=== PATIENT | female | born 1935 | race Caucasian/White ===

== ENCOUNTER 2017-01-03 12:20 | Inpatient (IN) ==
[2017-01-03] MEDS ORDERED: NS 1,000 ML IV ONE (13:07)
[2017-01-03] MEDS ORDERED: ZYVOX 600 MG/D5W 600 MG/300 ML IVPB IV ONE (13:09)
[2017-01-03 13:56] LABS: BASO% 0.5 % (0.0-0.8); EOS# 0.21 X1000 (0.0-0.7); EOS% 4.8 % (0.0-10.0); HEMOGLOBIN 8.6 g/dL (12.0-16.0); IMM GRAN# 0.02 X1000 (0.0-0.04); IMM GRAN% 0.5 % (0.0-0.5); LYMPH# 0.61 X1000 (1.2-3.4); LYMPH% 13.8 % (20.5-51.1); MANUAL DIFF NEEDED? NO; MCH 21.7 PG (27-31); MCHC 28.7 g/dL (33-37); MCV 75.8 FL (81-99); MONO# 0.35 X1000 (0.11-0.59); MONO% 7.9 % (1.7-9.3); MPV 10.8 FL (7.4-10.4); NEUT% 72.5 % (42.2-75.2); PLT 195 X1000 (130-400); RBC 3.96 XMIL (4.2-5.4)
[2017-01-03 14:04] LABS: ALBUMIN 3.8 g/dL (3.5-5.0); CALCIUM 8.6 mg/dL (8.8-10.2); POTASSIUM 4.4 mmol/L (3.5-5.1); TOTAL BILIRUBIN 0.2 mg/dL (0.20-1.00); TOTAL PROTEIN 6.7 g/dL (6.3-8.3)
--- NOTE | 2017-01-03 14:31 | Diag Imaging Result Doc PS360 ---
EXAM: CHEST-PORTABLE HISTORY: Cough TECHNIQUE: Single view of the chest was performed portably. COMPARISON: 04/03/2016 FINDINGS: Stable elevation left hemidiaphragm. There is cardiomegaly. There is stable parenchymal fibrosis. There is stable deformity of the right shoulder following removal of the total shoulder arthroplasty. No acute abnormalities are demonstrated. IMPRESSION: Stable cardiomegaly and parenchymal fibrosis. Electronically signed by Angelina Fan 01/03/2017 2:29 PM
[2017-01-03] MEDS ORDERED: CLINDAMYCIN 900 MG/NS 900 MG/50 ML IVPB IV SCH (15:00)
--- NOTE | 2017-01-03 15:01 | ED EKG INTERP ---
EKG Interpretation - EKG Time of EKG reading by physician:: 14:38 EKG Read and Signed by:: Pietro Lu EKG Interpretation (*Must complete 3 of following elements*): Normal Rate: 69 Rhythm: NSR [place]: normal QRS: normal IN Interval: normal ST Wave: normal Attestation - Physician/ AIME Attestation The physician spent face to face time with patient:: No Advanced Practice Provider documentation review:: Supervising physician onsite and consulted in the evaluation and care of this patient. The physician did not have a face to face encounter with the patient.
--- NOTE | 2017-01-03 15:02 | PROVIDER DOCUMENTATION ---
This chart was entered by Joe Nguyen Scribe, acting as scribe for Amrit Jones CRNP. HPI-Musculoskeletal Pain/Inj - GENERAL Chief Complaint: Extremity Pain Stated Complaint: ABNORMAL LABS Time Seen by Provider: 01/03/17 12:40 - HX OF PRESENT ILLNESS-MUSKULOSKELTAL Nature of Presenting Problem: patient is a 81 y/o F that presents to the ER with left leg redness and cellulitis. patient has been treated outpatient silva by ( PCP) with keflex and bactrim. no fever/chills, no injury. Quality of Pain: reports: none Severity in ED: moderate Onset/Duration: unsure Timing: still present, getting worse Modifying Factors: improves with: nothing Any recent injury?: No Locality of Occurance: Home Similar Symptoms Previously?: Yes Recently seen or treated by another doctor?: Yes - LOWER EXTREMITY PAIN/INJURY Lower Extremities Pain: leg: left Context / Method of Injury: reports: unknown Associated Symptoms: reports: denies symptoms Review of Systems - Adult - REVIEW OF SYSTEMS - ADULT Constitutional: denies: chills, fever Eyes: reports: no symptoms reported Ears, Nose, Mouth & Throat: reports: no symptoms reported Cardiovascular: denies: see HPI, orthopnea, palpitations Respiratory: denies: cough, shortness of breath, wheezing Gastrointestinal: denies: abdominal pain, nausea, vomiting Genitourinary: denies: dysuria, discharge, hesitency Musculoskeletal: denies: back pain, muscle aches, neck pain Integumentary: reports: see HPI Neurological: reports: no symptoms reported Psychiatric: reports: no symptoms reported Endocrine: reports: no symptoms reported Hematologic/Lymphatic: reports: no symptoms reported Allergic/Immunologic: reports: no symptoms reported All Other Systems: Reviewed and Negative Past History - Adult - PAST MEDICAL HISTORY-ADULT Review of Records: reports: Old Records Reviewed, Nursing Assessment Review, Medications Reviewed Cardiovascular: reports: CHF Respiratory: reports: pneumonia Gastrointestinal: reports: GERD Obstetrical/Gynecological: reports: other (breast cancer) Genitourinary: reports: other (hematuria) Musculoskeletal: reports: chronic pain Psychiatric: reports: anxiety Endocrine/Immune: reports: thyroid disorder Other Conditions: reports: MRSA - PRIOR SURGERIES/PROCEDURES Surgical/Procedure History: reports: cholecystectomy, hysterectomy, 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), other (Pedro's, mastectomy) - IMMUNIZATION STATUS Childhood Immunizations: See Nurse Assessment Flu Vaccine: See Nurse Assessment - FAMILY HISTORY Family History: reviewed, not pertinent - SOCIAL HISTORY Smoking: non-smoker Living Situation: family Physical Exam-Injury Related - Physical Exam-Injury Related Initial Vital Signs Reviewed: Yes General Appearance: alert, no apparent distress Eyes: PERRL/EOMI, pink conjunctivae Head, Ears, Nose, Mouth & Throat: normocephalic/atraumatic, moist mucous membranes, normal ENT inspection Neck: non-tender, full range of motion, normal inspection Respiratory: lungs clear, normal breath sounds, no respiratory distress, no accessory muscle use Cardiovascular: regular rate, rhythm, no edema, no murmur Abdominal Exam: normal bowel sounds, non tender, soft Back Exam: no CVA tenderness, no vertebral tenderness Extremity: pelvis stable, erythema (left leg complete), other (RIGHT BKA) Integumentary: warm/dry, erythema (left leg) Neurologic: grossly normal, no motor/sensory deficits Psych/Mental Status: normal mood/affect, normal thought content, normal thought process, oriented x 3 Progress - PLAN OF CARE/RESULTS Progress/Plan/Lab Results: Vital Signs - 8 hr 01/03/17 12:34 Temperature 98 F Pulse Rate 73 Respiratory Rate 18 Blood Pressure 153/70 O2 Sat by Pulse Oximetry 91 L Laboratory Results - last 24 hr 01/03/17 01/03/17 01/03/17 13:26 13:26 13:26 WBC 4.42 L RBC 3.96 L Hgb 8.6 L Hct 30.0 L MCV 75.8 L MCH 21.7 L MCHC 28.7 L RDW Std Deviation 16.3 H Plt Count 195 MPV 10.8 H Immature Gran % (Auto) 0.5 Neut % (Auto) 72.5 Lymph % (Auto) 13.8 L [place] % (Auto) 7.9 Eos % (Auto) 4.8 Baso % (Auto) 0.5 Immature Gran # (Auto) 0.02 Neut # (Auto) 3.21 Lymph # (Auto) 0.61 L [place] # (Auto) 0.35 Eos # (Auto) 0.21 Baso # (Auto) 0.02 Sodium 138 Potassium 4.4 Chloride 100 Carbon Dioxide 25 Anion Gap 12 BUN 14 Creatinine 0.9 Estimated GFR/1.73 m2 60 BUN/Creatinine Ratio 16 Glucose 84 Calculated Osmolality 275 Calcium 8.6 L Total Bilirubin 0.20 AST 22 ALT 18 Alkaline Phosphatase 113 H Total Protein 6.7 Albumin 3.8 Globulin 3.0 Albumin/Globulin Ratio 1.0 Plasma Lactate TSH 0.84 01/03/17 13:31 WBC RBC Hgb Hct MCV MCH MCHC RDW Std Deviation Plt Count MPV Immature Gran % (Auto) Neut % (Auto) Lymph % (Auto) [place] % (Auto) Eos % (Auto) Baso % (Auto) Immature Gran # (Auto) Neut # (Auto) Lymph # (Auto) [place] # (Auto) Eos # (Auto) Baso # (Auto) Sodium Potassium Chloride Carbon Dioxide Anion Gap BUN Creatinine Estimated GFR/1.73 m2 BUN/Creatinine Ratio Glucose Calculated Osmolality Calcium Total Bilirubin AST ALT Alkaline Phosphatase Total Protein Albumin Globulin Albumin/Globulin Ratio Plasma Lactate 0.9 TSH Orders Category Date Time Status Saline Loc NOW Care 01/03/17 13:05 Active CHEST-PORTABLE [RAD] Stat Exams 01/03/17 13:06 Completed BLOOD CULTURE [BLDCUL] Stat Lab 01/03/17 13:06 Ordered CBC WITH ELECTRONIC DIFF [HEME] Stat Lab 01/03/17 13:26 Completed COMPREHENSIVE METABOLIC PANEL [CHEM] Stat Lab 01/03/17 13:26 Completed LACTATE, PLASMA [CHEM] Stat Lab 01/03/17 13:31 Completed TSH Stat Lab 01/03/17 13:26 Completed URINALYSIS W/POSS RFLX CULT-1 [URINALYSIS] Stat Lab 01/03/17 13:05 Uncollected 0.9% Sodium Chloride Inj [Ns] 1,000 ml Med 01/03/17 13:07 Active IV 125 mls/hr Clindamycin 900 mg/Ns Med 01/03/17 15:00 Discontinued 900 mg in 50 ml IV Q8H Linezolid 600 mg/D5w [Zyvox 600 mg/D5w] Med 01/03/17 13:09 Active 600 mg in 300 ml IV NOW EKG [EKG] Stat Ther 01/03/17 13:05 Ordered Transfer/Admit Order [TRANSFER] Routine Transfer 01/03/17 14:56 Ordered Discussed results and plan of care with patient. Patient agrees with plan and verbalizes understanding. Result Diagrams: 01/03/17 13:26 01/03/17 13:26 - XRAY 1 XRAY Study: Chest XRAY Interpretation: Stable cardiomegally and parynchemal fibrosis per radiology - CONSULTS/PCP/HOSPITALIST Notification #1 *Consult/PCP/Hospitalist*: Dr. Lopez Time Discussed: 15:01 Reason/Comments: Admission Consult Disposition: Admit Departure - Departure Date of Disposition Decision: 01/03/17 Time of Disposition Decision: 13:10 DIAGNOSIS: Cellulitis Qualifiers: Site of cellulitis: extremity Site of cellulitis of extremity: lower extremity Laterality: left Qualified Code(s): L03.116 - Cellulitis of left lower limb Disposition: ADMITTED INPATIENT 09 Certified Medical Emergency: Emergent Condition: Stable Referrals and Follow-Ups: Kayode Go [Primary Care Provider] - - Critical Care Note This patient required my direct & personal management of CC.: No Attestation - Physician/ AIME Attestation Patient care was provided by Advanced Practice Provider:: Yes Advanced Practice Provider:: Amrit Jones (The physician is on site and did have face to face contact with the patient.) Advanced Practice Provider documentation review:: The Mid-level provider documentation, treatment plan and medical decision making was reviewed by the physician who agrees with all treatment and medical decision making by the P. The physician spent face to face time with patient:: Yes Advanced Practice Provider documentation review:: Supervising physician onsite and consulted in the evaluation and care of this patient. The physician did have a face to face encounter with the patient. This chart was documented by the indicated scribe, (Joe Nguyen, Scribe) and accurately reflects the services I performed and decisions made by me, Amrit Jones CRNP, as attested by the provider's signature.
[2017-01-03] MEDS ORDERED: TORADOL IM ONE (15:52)
[2017-01-03] MEDS ORDERED: TORADOL ONE (15:52)
[2017-01-03] MEDS ORDERED: PERCOCET-5 PO ONE (15:56)
[2017-01-03] MEDS ORDERED: PERCOCET-5 ONE (15:57)
[2017-01-03] MEDS ORDERED: TYLENOL PO PRN (16:10)
[2017-01-03] MEDS ORDERED: DEMEROL IV PRN (16:10)
[2017-01-03] MEDS ORDERED: ZOFRAN IV PRN (16:10)
--- NOTE | 2017-01-03 16:21 | HISTORY AND PHYSICAL ---
PRIMARY CARE PHYSICIAN: Dr. Kayode Go. CHIEF COMPLAINT: Left leg cellulitis that has failed outpatient treatment, stating that she was on clindamycin approximately a month ago and then approximately 2 weeks ago was placed on Keflex and Bactrim, all of which resulted in no improvement. HISTORY OF PRESENTING ILLNESS: This is a 81-year-old female who presents to [facility] ER with complaints of left leg cellulitis. She is noted to have erythema, edema, warmth to touch from her left knee, extending all the way down into her left foot. The patient states that approximately 1 month ago she was placed on clindamycin, had no improvement in her symptoms so she saw her primary care physician approximately 2 weeks ago and was placed on Keflex and Bactrim, with taking all of her antibiotics and still has no improvement. She states there is pain with any movement to her left leg. So she is being admitted for further evaluation and treatment. 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 PAST SURGICAL HISTORY: Adenoidectomy, left ankle repair, appendectomy, low back surgery, hysterectomy, right AKA, bilateral mastectomy, right shoulder and a hemorrhoidectomy. FAMILY HISTORY: Diabetes and heart disease. SOCIAL HISTORY: She currently lives with . Denies any tobacco, alcohol, or illicit drug use. ALLERGIES: Buprenex, Stadol, Nubain, Dilaudid, Cipro, morphine, vancomycin and Toradol. HOME MEDICATIONS: I will obtain a current list and restart those as appropriate. DIAGNOSTIC DATA: Showed a white blood cell count of 4.42, hemoglobin 8.6, hematocrit 30, platelets 195,000. Sodium 138, potassium 4.4, chloride 100, CO2 25, BUN of 14, creatinine 0.9, glucose of 84. TSH of 0.84. Chest x-ray showed stable cardiomegaly and parenchymal fibrosis. EKG with normal sinus rhythm at 69. REVIEW OF SYSTEMS: She denied any fever, chills, blurred vision, dizziness, chest pain, coughing, shortness of breath, abdominal pain, constipation, diarrhea, burning or hurting with urination. She is positive for pain, swelling, redness and warmth to her left lower extremity from her knee down to her left foot. PHYSICAL EXAMINATION: VITAL SIGNS: On arrival she had a temperature of 98 degrees, pulse 73, respirations 18, blood pressure 153/70, saturating 91% on room air. GENERAL: This is a 81-year-old morbidly obese, female who is sitting in her motorized wheelchair. Answers questions appropriately. HEENT: Normocephalic and atraumatic. Pupils are equal, round, reactive to light. Extraocular movements are intact. Oropharynx and nares are clear. NECK: Supple. LUNGS: Clear to auscultation bilaterally with equal lung expansion and chest wall movement. HEART: With regular rate and rhythm. No murmurs, rubs, or gallops. ABDOMEN: Soft, nontender, nondistended. Bowel sounds are present x4 quadrants. EXTREMITIES: Patient is noted to have a right AKA to her left leg from her knee down to her foot. There is erythema, edema, warmth to touch. Pain with movement. NEUROLOGICAL: The cranial nerves 2-12 appear grossly intact. ASSESSMENT: 1. Left lower extremity cellulitis with failed outpatient treatment. 2. Hypertension. 3. Hypothyroidism. 4. Anxiety. PLAN: She is being admitted to the Medical Unit at [facility], placed on telemetry, O2 per protocol. Healthy heart diet. We will place her on Zyvox 600 mg IV q.12 hours. We will check a left lower extremity venous ultrasound. Place on Demerol 25 IV q.4 hours p.r.n., Zofran 4 mg IV q.4 hours p.r.n. Recheck a CBC and a BMP in the a.m. and we will verify her home medications and restart those as appropriate. Dictated by SARAH Salmeron for Otoniel Lopez MD cc: SARAH Salmeron MD Alan Walker, MD
[2017-01-03 20:04] LABS: URINE CULTURE PL NEEDED? NO
[2017-01-03 20:18] LABS: BILIRUBIN URINE NEGATIVE (NEGATIVE); BLOOD URINE 3+ (NEGATIVE); CLARITY CLEAR (CLEAR); COLOR YELLOW; GLUCOSE URINE NEGATIVE (NEGATIVE); LEUKOCYTES URINE NEGATIVE (NEGATIVE); NITRITE URINE NEGATIVE (NEGATIVE); PROTEIN URINE NEGATIVE (NEGATIVE); SP GRAVITY URINE 1.005; UROBILINOGEN URINE NORMAL
[2017-01-03 20:19] LABS: URINE EPITHELIAL CELLS <10 /HPF (<10); URINE RBC TNTC /HPF (<10); URINE SOURCE CATH; URINE WBC <10 /HPF (<10)
[2017-01-03] MEDS ORDERED: [UNRECOGNIZED DRUG - OTHER] PO SCH (21:00)
[2017-01-03] MEDS ORDERED: DICLOFENAC SODIUM PO SCH (21:00)
[2017-01-03] MEDS ORDERED: MISOPROSTOL PO SCH (21:00)
[2017-01-03] MEDS: OXY IR PO SCH (21:10)
[2017-01-03] MEDS: ZANAFLEX PO SCH (21:10)
[2017-01-03] MEDS: MIRAPEX PO SCH (21:10)
[2017-01-03] MEDS: DEMEROL IV PRN (22:03)
--- NOTE | 2017-01-03 22:42 | HISTORY AND PHYSICAL ---
This is a 81-year-old female I am seeing in addition to the nurse practitioner [id number] encounter with diabetes, hypertension, PVD and she has a significant cellulitis of her left lower extremity including erythema, warmth to the touch. She was felt to clinically have cellulitis. She had recently been on Keflex and Bactrim but had failed therapy so she was evaluated and placed on linezolid. She has also been on clindamycin but I think that was in August and was a fairly low dose so I am not sure if that may not be another option but we will follow clinically, also rule out DVT. cc: Otoniel Lopez MD
[2017-01-04] MEDS: ZYVOX 600 MG/D5W 600 MG/300 ML IVPB IV SCH ×2 (01:01→13:08)
[2017-01-04] MEDS: DEMEROL IV PRN ×5 (02:00→20:35)
[2017-01-04 06:06] LABS: BASO% 0.8 % (0.0-0.8); EOS# 0.03 X1000 (0.0-0.7); EOS% 1.2 % (0.0-10.0); HEMATOCRIT 28.1 % (37.0-47.0); HEMOGLOBIN 7.9 g/dL (12.0-16.0); LYMPH# 0.74 X1000 (1.2-3.4); LYMPH% 29.2 % (20.5-51.1); MANUAL DIFF NEEDED? YES; MCH 21.4 PG (27-31); MCHC 28.1 g/dL (33-37); MCV 75.9 FL (81-99); MONO# 0.24 X1000 (0.11-0.59); MONO% 9.5 % (1.7-9.3); MPV 10.3 FL (7.4-10.4); NEUT% 59.3 % (42.2-75.2); PLT 185 X1000 (130-400)
[2017-01-04 06:38] LABS: AGAP 8; BUN 11 mg/dL (8-22); CALCIUM 8.6 mg/dL (8.8-10.2); CHLORIDE 101 mmol/L (98-107); COSMO 272; SODIUM 136 mmol/L (136-145); TCO2 26 mmol/L (25-35)
[2017-01-04 06:45] LABS: EOS 2 % (1-10); LYMPHS 24 % (21-51)
[2017-01-04 06:46] LABS: HYPOCHROM 1+
[2017-01-04] MEDS ORDERED: SYNTHROID PO SCH (07:00)
[2017-01-04] MEDS: SYNTHROID PO SCH ×2 (07:48)
[2017-01-04] MEDS: HEMOCYTE PLUS CAPSULE PO SCH (09:05)
[2017-01-04] MEDS: ZANAFLEX PO SCH ×2 (09:05→20:18)
[2017-01-04] MEDS: OXY IR PO SCH ×4 (09:05→20:17)
[2017-01-04] MEDS: PAXIL PO SCH (09:05)
[2017-01-04] MEDS: MIRAPEX PO SCH ×2 (09:05→20:18)
[2017-01-04] MEDS: LOVENOX SUBQ SCH (13:07)
--- NOTE | 2017-01-04 13:28 | PROGRESS NOTE ---
DATE: 01/04/2017 SUBJECTIVE: Patient sitting up in bed. States she did not sleep any last night, but other than that has no complaints. States her leg is feeling better today. OBJECTIVE: Vital signs: Temp 98.2 degrees, pulse 72, respirations 20, blood pressure 160/73, satting 98% on room air. General: This is a 81-year-old female lying in the bed, answers questions appropriately. HEENT: Normocephalic and atraumatic. Pupils are equal, round, reactive to light. Extraocular movements are intact. Oropharynx and nares are clear. Neck: Supple. Lungs: Clear to auscultation bilaterally with equal lung expansion and chest wall movement. Heart: With regular rate and rhythm. No murmurs, rubs, or gallops. Abdomen: Soft, nontender, nondistended. Bowel sounds are present x4 quadrants. Extremities: No clubbing, cyanosis. Patient is noted to have less erythema to her left lower extremity today. Her markings of where the erythema was yesterday have gone down significantly and are now down to her left calf versus up to her left knee yesterday. Her left foot is less erythematous, but the left calf continues to be erythematous, edematous, tender to touch, warm to touch. Neurological: The cranial nerves 2-12 appear grossly intact. LABORATORY DATA: Showed a white blood cell count of 2.53, hemoglobin 7.9, hematocrit 28.1, platelets 185. Sodium 136, potassium 4.0, chloride 101, CO2 26, BUN of 11, with a creatinine of 0.8, glucose 106. ASSESSMENT: 1. Left lower extremity cellulitis with failed outpatient treatment. We will continue her intravenous antibiotics as there has been improvement in her cellulitis on current intravenous treatment. We will recheck a complete blood count and basic metabolic panel in the morning. We are awaiting the results of venous Doppler of her left leg; it is still pending, and we will evaluate that once it has resulted. 2. Hypertension. Stable on current medication regimen. 3. Hypothyroidism. Stable. 4. Anxiety. Stable. PLAN: We will add Restoril 15 mg p.o. at bedtime p.r.n. to aid with sleeping tonight and evaluate the effectiveness in the morning. Dictated by SARAH Salmeron for Otoniel Lopez MD cc: SARAH Salmeron MD
--- NOTE | 2017-01-04 15:06 | PROGRESS NOTE ---
DATE: 01/04/2017 SUBJECTIVE: Patient admitted for cellulitis. OBJECTIVE: No fever. She had redness and erythema over her left lower extremity. I do not feel it is much improved from yesterday, about the same. PLAN: I am going to add clindamycin and we will follow clinically. I think we have ruled out deep venous thrombosis. She also has anemia, so we will continue to monitor her hemoglobin and hematocrit and evaluate iron studies. cc: Otoniel Lopez MD
[2017-01-04] MEDS: CLINDAMYCIN 900 MG/NS 900 MG/50 ML IVPB IV SCH (15:08)
[2017-01-04] MEDS: RESTORIL PO PRN (20:20)
[2017-01-05] MEDS: CLINDAMYCIN 900 MG/NS 900 MG/50 ML IVPB IV SCH ×3 (00:50→18:32)
[2017-01-05] MEDS: DEMEROL IV PRN ×5 (02:47→23:54)
[2017-01-05] MEDS: ZYVOX 600 MG/D5W 600 MG/300 ML IVPB IV SCH ×2 (02:47→12:47)
[2017-01-05 06:17] LABS: BASO% 0.9 % (0.0-0.8); EOS# 0.05 X1000 (0.0-0.7); EOS% 1.5 % (0.0-10.0); HEMATOCRIT 29.3 % (37.0-47.0); IMM GRAN# 0.01 X1000 (0.0-0.04); IMM GRAN% 0.3 % (0.0-0.5); LYMPH# 0.69 X1000 (1.2-3.4); LYMPH% 20.7 % (20.5-51.1); MANUAL DIFF NEEDED? NO; MCH 20.9 PG (27-31); MCHC 27.3 g/dL (33-37); MCV 76.7 FL (81-99); MONO# 0.33 X1000 (0.11-0.59); MONO% 9.9 % (1.7-9.3); MPV 9.9 FL (7.4-10.4); NEUT% 66.7 % (42.2-75.2); PLT 183 X1000 (130-400); RBC 3.82 XMIL (4.2-5.4); RETIC% 1.06 % (0.8-2.1); RETIC-HE 20.8 PG (28.2-36.6)
[2017-01-05] MEDS: SYNTHROID PO SCH ×2 (06:34)
[2017-01-05 06:35] LABS: AGAP 9; BUN 10 mg/dL (8-22); CALCIUM 9.2 mg/dL (8.8-10.2); CHLORIDE 101 mmol/L (98-107); COSMO 271; IRON SATURATION 9 %; POTASSIUM 4.1 mmol/L (3.5-5.1); SODIUM 136 mmol/L (136-145); TCO2 26 mmol/L (25-35); TIBC 367 ug/dL; TOTAL IRON 34 ug/dL (49-151); UNBOUND IRON 333 ug/dL (112-346)
--- NOTE | 2017-01-05 09:19 | PROGRESS NOTE ---
DATE: 01/05/2017 SUBJECTIVE: Patient sitting up in bed eating breakfast. Complains of pain to her left leg that is mildly relieved with her Demerol but does not want to change her pain regimen at this time. States she slept better last night after receiving p.r.n. Restoril. Otherwise, no complaints. OBJECTIVE: Vital Signs: Temperature 97.6 degrees, pulse 61, respirations 18, blood pressure 140/66, saturating 98% on room air. General: This is a 81-year-old, female who is lying in the bed and answers questions appropriately. HEENT: Normocephalic and atraumatic. Pupils are equal, round, and reactive to light. The extraocular movements are intact. The oropharynx and nares are clear. Neck: Supple. Lungs: Were clear to auscultation bilaterally with equal lung expansion and chest wall movement. Heart: With regular rate and rhythm. No murmurs, rubs, or gallops. Abdomen: Soft, nontender, nondistended. Bowel sounds are present x4 quadrants. Extremities: No clubbing or cyanosis. Patient is noted to still have erythema, edema, and warmth to touch to her left lower extremity but it still continues to improve. The redness continues to lessen each day. Neurological: The cranial nerves 2-12 are grossly intact. Laboratory Data: Showed a white blood cell count of 3.33, hemoglobin of 8, with a hematocrit of 29.3, platelets 183,000. Sodium of 136, potassium 4.1, chloride 101, CO2 26, BUN of 10, creatinine 0.7, glucose 105. We are still pending the results of her left lower extremity venous Doppler. ASSESSMENT: 1. Left lower extremity cellulitis with failed outpatient treatment. We continued her intravenous antibiotics. She continues to have improvement in her cellulitis. We will recheck labs in the morning. 2. Hypertension, stable on current medication regimen. 3. Hypothyroidism, stable. 4. Anxiety, stable. 5. Insomnia. Continue the Restoril 15 mg by mouth at bedtime as needed. The patient states that this was effective in aiding in her sleep last night. Dictated by SARAH Salmeron for Otoniel Lopez MD cc: SARAH Salmeron MD pt examined, seen face to face, pt has cellulitis but erythema, swelling has decreased, will continue zyvox and clindamycin at discharge possinly 1-2 days MTDD
[2017-01-05] MEDS: ZANAFLEX PO SCH ×3 (09:26→21:53)
[2017-01-05] MEDS: PAXIL PO SCH (09:26)
[2017-01-05] MEDS: OXY IR PO SCH ×2 (09:26→12:47)
[2017-01-05] MEDS: MIRAPEX PO SCH ×3 (09:27→21:53)
[2017-01-05] MEDS: HEMOCYTE PLUS CAPSULE PO SCH (09:43)
[2017-01-05] MEDS ORDERED: NS 250 ML ONE (09:52)
[2017-01-05 10:07] LABS: INR 0.9 (0.86-1.15); PROTIME 12.9 Seconds (12.1-15.5)
[2017-01-05] MEDS: LOVENOX SUBQ SCH ×2 (11:28→11:46)
--- NOTE | 2017-01-05 11:33 | Diag Imaging Result Doc PS360 ---
EXAM: CHEST-PORTABLE INDICATION: Verify PICC placement TECHNIQUE: One view COMPARISON: 01/03/2017 FINDINGS: There is a newly placed right PICC line. The tip projects over the lower SVC just superior to the atriocaval junction in the expected position. Increased interstitial markings suggesting fibrosis are unchanged. No new consolidation is identified. Cardiac silhouette is stable. IMPRESSION: Interval placement of right PICC line as described. Stable chest, otherwise. Electronically signed by Fidel Mackay 01/05/2017 11:31 AM
[2017-01-05] MEDS: OXY IR PO PRN (21:33)
[2017-01-05] MEDS: RESTORIL PO PRN (21:33)
[2017-01-06] MEDS: ZYVOX 600 MG/D5W 600 MG/300 ML IVPB IV SCH ×2 (00:03→12:11)
[2017-01-06] MEDS: OXY IR PO PRN ×5 (03:09→22:27)
[2017-01-06] MEDS: CLINDAMYCIN 900 MG/NS 900 MG/50 ML IVPB IV SCH (03:10)
[2017-01-06] MEDS: DEMEROL IV PRN (05:07)
[2017-01-06 05:59] LABS: HEMATOCRIT 28.8 % (37.0-47.0); HEMOGLOBIN 8.2 g/dL (12.0-16.0); MCH 21.8 PG (27-31); MCHC 28.5 g/dL (33-37); MCV 76.6 FL (81-99); MPV 10.4 FL (7.4-10.4); RBC 3.76 XMIL (4.2-5.4)
[2017-01-06 06:10] LABS: AGAP 9; BUN 8 mg/dL (8-22); CALCIUM 9.1 mg/dL (8.8-10.2); CHLORIDE 102 mmol/L (98-107); COSMO 273; POTASSIUM 4.4 mmol/L (3.5-5.1); SODIUM 138 mmol/L (136-145); TCO2 28 mmol/L (25-35)
[2017-01-06] MEDS: SYNTHROID PO SCH ×2 (06:18)
[2017-01-06] MEDS ORDERED: CLINDAMYCIN 900 MG/NS 900 MG/50 ML IVPB IV SCH (06:35)
[2017-01-06] MEDS: MIRAPEX PO SCH ×2 (09:42→22:27)
[2017-01-06] MEDS: PAXIL PO SCH (09:43)
[2017-01-06] MEDS: CLEOCIN PO SCH ×2 (09:44→17:20)
[2017-01-06] MEDS: ZANAFLEX PO SCH ×2 (09:44→22:27)
--- NOTE | 2017-01-06 11:24 | PROGRESS NOTE ---
DATE: 01/06/2017 SUBJECTIVE: The patient is sitting up in the bed, watching TV. She has no complaints at this time. Denying any chest pain, any shortness of breath, any dizziness or syncope. She does state that she felt she had slept better after receiving Restoril. OBJECTIVE: Vital Signs: Blood pressure is 170/74, with a heart rate of 64, respirations are 18, temperature is 97.9 degrees oral, with a room air saturation of 97-99%. General: This is a 81- year-old, female who is sitting up in the bed, in no distress. Cardiovascular: Regular rate and rhythm. S1 and S2 appreciated. Pulmonary: Breath sounds are clear with no increased work of breathing noted. Chest does rise and fall symmetrically with respirations. Gastrointestinal: Abdomen is soft, nontender, nondistended with bowel sounds in all 4 quadrants. Extremities: No clubbing, cyanosis, or edema to upper extremities or right lower extremity. Left lower extremity continues with erythema and edema but it is improving. Calves are nontender. Pulses are palpable x4. Labs: WBC is 3, with a hemoglobin of 8.2, hematocrit of 28.8, and platelets of 188,000. Sodium is 138, potassium 4.4, BUN 8, creatinine 0.7, with a glucose of 89. Microbiology: Urine culture revealed no growth. The blood cultures x2 revealed no growth after 48 hours. Imaging: Chest x-ray revealed a newly placed PICC with interstitial markings suggesting fibrosis, unchanged. No new consolidation is identified. ASSESSMENT AND PLAN: 1. Left lower extremity cellulitis with failed outpatient treatment. We will continue with intravenous antibiotics and trend labs. 2. Hypertension. Blood pressures are ranging in the 130-170s/60s-70s. We will continue her current regimen. 3. Hypothyroidism, with a TSH of 0.84. We will continue with her current medication regimen. 4. Anxiety, stable. 5. Insomnia. This has improved as she has started Restoril and she states that she did rest. We will continue with Restoril as needed. 6. Antibiotics, linezolid. Today is day 4. Clindamycin, day 3. Dictated by SARAH Gray for Conor Carlos MD cc: SARAH Gray MD
[2017-01-06] MEDS: HEMOCYTE PLUS CAPSULE PO SCH (12:11)
[2017-01-06] MEDS: LOVENOX SUBQ SCH (12:11)
--- NOTE | 2017-01-06 19:51 | PROGRESS NOTE ---
DATE: 01/06/2017 Patient seen and examined. Full note dictated by nurse practitioner. Patient notes that overall she is doing well. States the swelling in her lower extremity has improved but it still itches and still hurts some. Denies any worsening although she has not really been out of bed. PHYSICAL: On physical exam patient is awake, alert, obese female who is in no distress. Vital signs reviewed and stable. PLAN: Will change patient's antibiotics. Will continue Zyvox today. Will change to clindamycin p.o., if she tolerates hopefully she can be discharged home tomorrow. cc: Conor Carlos MD
[2017-01-07] MEDS: OXY IR PO PRN ×3 (02:28→13:02)
[2017-01-07] MEDS: CLEOCIN PO SCH ×2 (02:28→08:18)
[2017-01-07] MEDS: ZYVOX 600 MG/D5W 600 MG/300 ML IVPB IV SCH (02:28)
[2017-01-07] MEDS: SYNTHROID PO SCH ×2 (06:18)
[2017-01-07] MEDS: MIRAPEX PO SCH ×2 (08:18→21:13)
[2017-01-07] MEDS: HEMOCYTE PLUS CAPSULE PO SCH (08:18)
[2017-01-07] MEDS: PAXIL PO SCH (08:18)
[2017-01-07] MEDS: ZANAFLEX PO SCH ×2 (08:19→21:13)
[2017-01-07] MEDS: ZYVOX PO SCH ×2 (09:01→21:13)
[2017-01-07] MEDS: LOVENOX SUBQ SCH (12:57)
--- NOTE | 2017-01-07 13:53 | Extremity Venous Study ---
Venous U/S Left Leg - 01/03/2017 INDICATION: cellulitis left leg,fop tx TECHNIQUE: Unilateral left lower extremity venous Doppler ultrasound COMPARISON: 08/09/2016 FINDINGS: The deep veins of the left leg are fully compressible. There is normal color and pulse wave Doppler signal. IMPRESSION: Negative exam. Electronically signed by Clinton Espinosa 01/07/2017 1:51 PM
[2017-01-07] MEDS: DEMEROL IV PRN ×3 (15:34→21:50)
[2017-01-07] MEDS: CLINDAMYCIN 900 MG/NS 900 MG/50 ML IVPB IV SCH ×2 (16:00→21:13)
[2017-01-07] MEDS: RESTORIL PO PRN (21:13)
[2017-01-08] MEDS: CLINDAMYCIN 900 MG/NS 900 MG/50 ML IVPB IV SCH ×4 (00:42→22:10)
[2017-01-08] MEDS: DEMEROL IV PRN ×5 (01:50→19:14)
[2017-01-08] MEDS: SYNTHROID PO SCH ×2 (06:01)
[2017-01-08 06:27] LABS: HEMATOCRIT 30.2 % (37.0-47.0); HEMOGLOBIN 8.6 g/dL (12.0-16.0); MCH 21.8 PG (27-31); MCHC 28.5 g/dL (33-37); MCV 76.6 FL (81-99); MPV 10.1 FL (7.4-10.4); RBC 3.94 XMIL (4.2-5.4)
[2017-01-08 06:57] LABS: AGAP 10; BUN 9 mg/dL (8-22); CALCIUM 8.9 mg/dL (8.8-10.2); CHLORIDE 97 mmol/L (98-107); COSMO 265; POTASSIUM 4.1 mmol/L (3.5-5.1); SODIUM 133 mmol/L (136-145); TCO2 27 mmol/L (25-35)
[2017-01-08] MEDS: ZANAFLEX PO SCH ×2 (08:33→20:45)
[2017-01-08] MEDS: MIRAPEX PO SCH ×2 (08:33→20:45)
[2017-01-08] MEDS: ZYVOX PO SCH ×2 (08:34→20:46)
[2017-01-08] MEDS: HEMOCYTE PLUS CAPSULE PO SCH (08:34)
[2017-01-08] MEDS: PAXIL PO SCH (08:35)
[2017-01-08] MEDS: ROCEPHIN 1 GM in NS 50 ML IV SCH (10:29)
[2017-01-08] MEDS: LOVENOX SUBQ SCH (12:41)
--- NOTE | 2017-01-08 19:30 | PROGRESS NOTE ---
DATE: 01/08/2017 SUBJECTIVE: Patient is seen and examined. She is in no current respiratory distress. Admits that she likes to take Demerol very often during the day. States that her swelling in her leg is not really worse and not really better. OBJECTIVE: Vital Signs: Reviewed. She is awake, alert, oriented. Temperature 98, pulse 91, BP 147/75. General: Patient is awake, alert, oriented. She is currently in no respiratory distress. She is lying flatly in the bed. HEENT: Normocephalic, atraumatic. DIAN[place]. Neck: Supple. CV: Regular rate. Chest: Relatively clear. Abdomen: Soft, nondistended. Extremities: Moves all extremities. Neurologic: No focal changes. Skin: Noted to have erythema of the left lower extremity. It does not appear any worse than it did 2 days ago. ASSESSMENT: 1. Left lower extremity cellulitis. 2. Chronic pain. 3. Hypertension. 4. Hypothyroidism. 5. Morbid obesity. 6. Chronic anxiety. PLAN: We will continue Zyvox, clindamycin. Add Rocephin today for gram-negative coverage. We will continue to follow. Discussed with patient that she cannot continue taking 50 mg of Demerol every 4 hours around the clock as this could create seizures. We will decrease her Demerol and will follow. cc: Conor Carlos MD
[2017-01-08] MEDS: RESTORIL PO PRN (20:46)
[2017-01-08] MEDS: OXY IR PO PRN (20:46)
[2017-01-09] MEDS: DEMEROL IV PRN ×6 (01:03→22:17)
[2017-01-09] MEDS: CLINDAMYCIN 900 MG/NS 900 MG/50 ML IVPB IV SCH ×3 (05:30→22:18)
[2017-01-09] MEDS: SYNTHROID PO SCH ×2 (06:14)
[2017-01-09] MEDS: PAXIL PO SCH (09:11)
[2017-01-09] MEDS: ZANAFLEX PO SCH ×2 (09:11→20:31)
[2017-01-09] MEDS: ROCEPHIN 1 GM in NS 50 ML IV SCH (09:11)
[2017-01-09] MEDS: MIRAPEX PO SCH ×2 (09:12→20:30)
[2017-01-09] MEDS: HEMOCYTE PLUS CAPSULE PO SCH (09:13)
[2017-01-09] MEDS: ZYVOX PO SCH ×2 (09:13→20:31)
[2017-01-09] MEDS: LOVENOX SUBQ SCH (12:31)
[2017-01-09] MEDS: OXY IR PO PRN (14:44)
[2017-01-09] MEDS: RESTORIL PO PRN (20:31)
[2017-01-10] MEDS: OXY IR PO PRN ×3 (00:54→13:28)
[2017-01-10] MEDS: DEMEROL IV PRN ×2 (03:58→09:31)
--- NOTE | 2017-01-10 05:06 | PROGRESS NOTE ---
DATE: 01/09/2017 SUBJECTIVE: Patient notes that she is feeling better. States the Demerol does not do "crap." States if that is all she is going to get she might as well go home as she has pain medications at home. Notes that the redness in her leg is better. She is having no fevers or chills. PHYSICAL: Vital signs: She is awake alert, oriented. She is in no respiratory distress. She is afebrile. Blood pressure is stable. Heart rate 60s. Respiratory 20. General: Patient is awake, alert. She is currently in no respiratory distress. HEENT: Normocephalic, atraumatic. DIANNA. Neck: Supple. Cardiovascular: Regular rate. Chest: Relatively clear. Abdomen: Soft. Extremities: Moves all extremities. Skin: She has got less erythema of the left lower extremity. She now has wrinkles in the left lower extremity around the ankle. ASSESSMENT: 1. Cellulitis left lower left extremity around her ankle. 2. Hypertension. 3. Hypothyroidism. 4. Chronic anxiety. PLAN: We will change patient's clindamycin to p.o. We will change her Rocephin to Bactrim and hopefully discharge home. cc: Conor Carlos MD
[2017-01-10] MEDS: SYNTHROID PO SCH ×2 (06:15)
[2017-01-10] MEDS: CLINDAMYCIN 900 MG/NS 900 MG/50 ML IVPB IV SCH (06:15)
[2017-01-10 08:14] VITALS: BP 181/68
[2017-01-10] MEDS: ROCEPHIN 1 GM in NS 50 ML IV SCH (09:31)
[2017-01-10] MEDS: PAXIL PO SCH (09:32)
[2017-01-10] MEDS: MIRAPEX PO SCH (09:32)
[2017-01-10] MEDS: HEMOCYTE PLUS CAPSULE PO SCH (09:32)
[2017-01-10] MEDS: ZANAFLEX PO SCH (09:33)
[2017-01-10] MEDS: ZYVOX PO SCH (09:34)
--- NOTE | 2017-01-11 12:49 | DISCHARGE SUMMARY ---
ADMISSION DATE: 01/03/2017 DISCHARGE DATE: 01/10/2017 DIAGNOSES: 1. Left lower extremity cellulitis, failed outpatient treatment. 2. Hypertension. 3. Hypothyroidism. 4. Chronic anxiety. DIAGNOSTICS: 1. On 01/03/2017 chest x-ray revealed stable cardiomegaly and parenchymal fibrosis. 2. On 01/03/2017 left lower extremity venous Doppler revealed no evidence of DVT. 3. On 01/05/2017 chest x-ray revealed a stable chest. MICROBIOLOGY: 1. Blood cultures x2 revealed no growth after 5 days. 2. Urine culture revealed no growth. DISCHARGE MEDICATIONS: Paxil 30 mg daily, Zanaflex 4 mg b.i.d., Klonopin 1-2 mg p.o. at bedtime, oxycodone 50 mg 4 times a day, Mirapex 0.25 b.i.d., levothyroxine 125 mcg daily, Bactrim DS 1 p.o. b.i.d. x10 days, Zyvox 600 mg p.o. b.i.d. x10 days. HOSPITAL COURSE: Ms. Godinez was admitted for cellulitis of left lower extremity, failed outpatient treatment, initially being treated with linezolid and clindamycin IV. She was transitioned over to p.o. linezolid as well as Bactrim DS. She has responded well, having great improvement to her leg with redness that has resolved. She does have much less edema, having wrinkles around her ankle. Thankfully she has improved enough to return home on p.o. antibiotics. DISCHARGE PHYSICAL EXAMINATION: Cardiovascular: Regular rate and rhythm. S1 and S2 appreciated. Pulmonary: Breath sounds are clear. No increased work of breathing noted. Gastrointestinal: Abdomen is soft, nontender, nondistended. Bowel sounds in all 4 quadrants. Extremities: No clubbing or cyanosis to upper extremities. Left lower extremity has 1+ edema. Calf nontender. Pulses are palpable. Neurologic: She is alert and oriented x3. DISCHARGE FOLLOW UP: She is to follow up with her primary care physician in a week, sooner if needed. She is being discharged home in stable condition with her . TIME SPENT: This is a greater than 30 minute discharge. Dictated by SARAH Gray for Conor Cralos MD cc: SARAH Gray MD
--- NOTE | 2017-01-11 16:18 | DISCHARGE SUMMARY ---
ADMISSION DATE: 01/03/2017 DISCHARGE DATE: 01/10/2017 DISCHARGE ADDENDUM: Patient seen and examined by myself. Full note dictated by nurse practitioner. Patient notes that she is feeling better. States her pain is more tolerable. Notes that the Demerol is not helping and therefore she has not been taking it. States the redness and swelling have also improved. We will discharge patient home. On physical exam, she has improved. She has less redness, less erythema, less pain. We will continue to follow. She will follow up with her primary care in 1-2 weeks. cc: Conor Carlos MD
== END 2017-01-10 14:04 | disposition home health service (06) ==
LOC: P.MEDSURG 12:20 → P.ED 12:20 → SUATTDRO 15:28 → OBSVTOIN 15:28
PROVIDERS: ATTEND Family Medicine

== ENCOUNTER 2018-05-22 22:24 | Inpatient (IN) ==
[2018-05-22] MEDS ORDERED: ROCEPHIN 1 GM in NS 50 ML IV ONE (23:26)
[2018-05-22] MEDS ORDERED: DUONEB (A & A) INH ONE (23:26)
[2018-05-23 00:08] LABS: AGAP 8; BUN 13 mg/dL (8-22); CALCIUM 8.9 mg/dL (8.8-10.2); CHLORIDE 99 mmol/L (98-107); COSMO 278; CREATININE 0.6 mg/dL (0.5-0.9); ESTIMATED GFR > 60; GLUCOSE 105 mg/dL (70-104); POTASSIUM 4.6 mmol/L (3.5-5.1); SODIUM 139 mmol/L (136-145); TCO2 31 mmol/L (25-35)
[2018-05-23 00:17] LABS: BE 5.2 mmoll (-3.0-3.0); BLOOD TYPE ARTERIAL; HCO3-(ACT) 28.8 mmoll (20.0-26.0); METHB 0.8 % (0.0-1.5); O2(CT) 14.1 mL/dL (15.0-23.0); O2HB 90.1 % (95.0-99.0); PO2(98.6) 53 mmHg (60-100); SAMPLE BLOOD; SAO2 93.2 % (95.0-100.0); THB 11.1 g/dL (11.5-17.4); pH(98.6) 7.27 (7.35-7.45)
[2018-05-23 00:21] LABS: ALLEN TEST YES; MODALITY CANNULA; PCO2(98.6) 74 mmHg (35-45)
[2018-05-23] MEDS ORDERED: NS 1,000 ML IV SCH (00:30)
[2018-05-23 00:51] LABS: BASO# 0.03 X1000 (0.0-0.2); BASO% 0.6 % (0.0-0.8); EOS# 0.05 X1000 (0.0-0.7); EOS% 0.9 % (0.0-10.0); HEMATOCRIT 38.1 % (37.0-47.0); HEMOGLOBIN 10.8 g/dL (12.0-16.0); IMM GRAN# 0.05 X1000 (0.0-0.04); IMM GRAN% 0.9 % (0.0-0.5); LYMPH# 0.36 X1000 (1.2-3.4); LYMPH% 6.8 % (20.5-51.1); MCH 25.9 PG (27-31); MCHC 28.3 g/dL (33-37); MCV 91.4 FL (81-99); MONO# 0.44 X1000 (0.11-0.59); MONO% 8.3 % (1.7-9.3); MPV 10.2 FL (7.4-10.4); NEUT# 4.36 X1000 (1.4-6.5); NEUT% 82.5 % (42.2-75.2); PLT 122 X1000 (130-400); RBC 4.17 XMIL (4.2-5.4); RDW 14.2 % (11.5-14.5); WBC 5.29 X1000 (4.8-10.8)
[2018-05-23 02:28] LABS: BE 7.1 mmoll (-3.0-3.0); BLOOD TYPE ARTERIAL; HCO3-(ACT) 30.4 mmoll (20.0-26.0); METHB 1.3 % (0.0-1.5); O2HB 95.5 % (95.0-99.0); PO2(98.6) 112 mmHg (60-100); SAMPLE BLOOD; SAO2 98.9 % (95.0-100.0); pH(98.6) 7.33 (7.35-7.45)
[2018-05-23 02:30] LABS: ALLEN TEST YES; MODALITY BI PAP; PCO2(98.6) 66 mmHg (35-45)
[2018-05-23 02:30] LABS: BILIRUBIN URINE NEGATIVE (NEGATIVE); BLOOD URINE 1+ (NEGATIVE); CLARITY CLEAR (CLEAR); COLOR YELLOW; GLUCOSE URINE NEGATIVE (NEGATIVE); KETONE URINE 2+(Moderate) mg/dL (NEGATIVE); LEUKOCYTES URINE NEGATIVE (NEGATIVE); NITRITE URINE NEGATIVE (NEGATIVE); PH URINE 6.5; PROTEIN URINE 1+(30 mg/dL) mg/dL (NEGATIVE); SP GRAVITY URINE 1.015; UROBILINOGEN URINE 1 mg/dL
[2018-05-23 02:39] LABS: URINE BACTERIA 2+ /HFP; URINE EPITHELIAL CELLS <10 /HPF (<10); URINE RBC <10 /HPF (<10); URINE WBC <10 /HPF (<10)
[2018-05-23 02:40] LABS: URINE SOURCE CATH
--- NOTE | 2018-05-23 03:26 | PROVIDER DOCUMENTATION ---
This chart was entered by Kristi Mackay Scribe, acting as scribe for Dougie Enriquez MD. HPI-General Adult - General Chief Complaint: Flu Symptoms Stated Complaint: Headache Time Seen by Provider: 05/22/18 22:55 Source: patient, family Allergies/Adverse Reactions: Patient Allergies Allergy/AdvReac Type Severity Reaction Status Date / Time buprenorphine HCl * Allergy Severe Unknown Verified 05/23/18 02:50 [From Buprenex] butorphanol tartrate * Allergy Severe Unknown Verified 05/23/18 02:50 [From Stadol] nalbuphine HCl * Allergy Severe Unknown Verified 05/23/18 02:50 [From Nubain] hydromorphone HCl * Allergy Intermediate HIVES Verified 05/23/18 02:50 [From Dilaudid] ciprofloxacin [From Cipro] Allergy Unknown Unknown Verified 05/23/18 02:50 ciprofloxacin HCl * Allergy Unknown Unknown Verified 05/23/18 02:50 [From Cipro] morphine Allergy Unknown Unknown Verified 05/23/18 02:50 buprenorphine [From Buprenex] Allergy Unknown Verified 05/23/18 02:50 butorphanol [From Stadol] Allergy Unknown Verified 05/23/18 02:50 hydromorphone [From Dilaudid] Allergy HIVES Verified 05/23/18 02:50 ketorolac [From Toradol] Allergy Unknown Verified 05/23/18 02:50 nalbuphine [From Nubain] Allergy Unknown Verified 05/23/18 02:50 ketorolac tromethamine * AdvReac Mild Unknown Verified 05/23/18 02:50 [From Toradol] Home Medications: Home Medication List Medication Instructions Recorded Confirmed Last Taken Type Levothyroxine Sodium 125 mcg PO DAILY #30 tablet 01/09/17 05/23/18 05/22/18 Rx Tizanidine [Zanaflex] 4 mg PO BID tablet 02/05/17 05/23/18 05/22/18 Rx Diclofenac Sodium/Misoprostol 1 each PO BID 05/21/17 05/23/18 05/22/18 History [Arthrotec 50 mg-200 Mcg Tab] Furosemide [Lasix] 40 mg PO DAILY 07/05/17 05/23/18 05/22/18 History Mirabegron [Myrbetriq] 50 mg PO QAM 07/05/17 05/23/18 05/22/18 History Paroxetine [Paxil] 30 mg PO DAILY 11/19/17 05/23/18 05/22/18 History Pregabalin [Lyrica] 75 mg PO BID #60 cap 01/01/18 05/23/18 05/22/18 Rx Oxycodone HCl 15 mg PO RTQ8H 04/03/18 05/23/18 05/22/18 History - History of Present Illness -Gen Adult Nature of Presenting Problems: 82 yof presents to ed w/ w/co headache and on and off fever for 3-4 days. pt arrived via ems and stated she had a headache and was treated last week and dx w/bronchitis. pt's temp at home few days ago was 102.7 and temp today was 99.1, reports. is main historian b/c pt was somewhat incoherent. pt also has cellulitis in left leg, said its been infected on and off or years. 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 Review of Systems - Adult - REVIEW OF SYSTEMS - ADULT Constitutional: reports: see HPI, fever. denies: chills, fatique, night sweats Eyes: reports: no symptoms reported Ears, Nose, Mouth & Throat: reports: no symptoms reported Cardiovascular: reports: no symptoms reported Respiratory: reports: no symptoms reported Gastrointestinal: reports: no symptoms reported Genitourinary: reports: no symptoms reported Musculoskeletal: reports: no symptoms reported Integumentary: reports: see HPI, other (cellulitis on left lower leg) Neurological: reports: no symptoms reported Psychiatric: reports: no symptoms reported Endocrine: reports: no symptoms reported Hematologic/Lymphatic: reports: no symptoms reported Allergic/Immunologic: reports: no symptoms reported All Other Systems: Reviewed and Negative Past History - Adult - PAST MEDICAL HISTORY-ADULT Review of Records: reports: Old Records Reviewed, Nursing Assessment Review, Medications Reviewed, Social history reviewed & non-contributory. 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), chronic pain Neurological: reports: denies history Psychiatric: reports: anxiety Endocrine/Immune: reports: thyroid disorder Other Conditions: reports: MRSA - PRIOR SURGERIES/PROCEDURES Surgical/Procedure History: reports: cholecystectomy, hysterectomy, orthopedic ( extremity), other (AKA right leg) - IMMUNIZATION STATUS Childhood Immunizations: See Nurse Assessment Flu Vaccine: See Nurse Assessment - FAMILY HISTORY Family History: reviewed, not pertinent - SOCIAL HISTORY Smoking: non-smoker Substance Use: none/never Physical Exam-General - PHYSICAL EXAM-ADULT Initial Vital Signs Reviewed: Yes - CONSTITUTIONAL General Appearance: mild distress, obese, lethargic, slow to respond. negative : alert, anxious, combative - EYES Eyes: PERRL/EOMI - HEAD, EARS, NOSE, MOUTH & THROAT HENMT: normocephalic/atraumatic, moist mucous membranes, normal ENT inspection - NECK Neck: non-tender, full range of motion, supple - RESPIRATORY Respiratory: decreased breath sounds, rhonchi, wheezing (bilateral). negative: chest non-tender, lungs clear, normal breath sounds - CARDIOVASCULAR Cardiovascular: normal peripheral pulses, regular rate, rhythm - GASTROINTESTINAL (ABDOMEN) Abdominal Exam: normal bowel sounds, non tender, soft - LYMPHATIC Lymphatic: no adenopathy - MUSCULOSKELETAL Back Exam: normal inspection, no CVA tenderness, no vertebral tenderness Extremity: normal range of motion, non-tender, erythema (left lower leg, cellulitis), swelling - SKIN Integumentary: erythema (left lower extermity). negative: blanching, cyanosis, decubitus - NEUROLOGIC Neurologic: director software II-XII nml as tested, grossly normal, no motor/sensory deficits - PSYCHIATRIC Psych/Mental Status: normal mood/affect, normal thought content, normal thought process, oriented x 3 Progress - PLAN OF CARE/RESULTS Progress/Plan/Lab Results: Vital Signs - 8 hr 05/22/18 22:27 Temperature 99.1 F Pulse Rate 86 Respiratory Rate 18 Blood Pressure 167/085 O2 Sat by Pulse Oximetry 91 L Result Diagrams: 05/22/18 23:50 05/22/18 23:50 - REASSESSMENT Reassessment #1 Time Reassessed: 12:10 Status: improving (less SOB.) Reassessment #2 Time Reassessed: 01:04 Status: unchanged - CONSULTS/PCP/HOSPITALIST Notification #1 *Consult/PCP/Hospitalist*: Dr. Cristopher randhawa Time Discussed: 02:02 Consult Disposition: Admit (Hx, PE and Dx. discussed with Dr. Randhawa. accepted to [facility].) Departure - Departure Date of Disposition Decision: 05/23/18 Time of Disposition Decision: 02:01 DIAGNOSIS: Respiratory failure Qualifiers: Chronicity: unspecified Respiratory failure complication: hypoxia and hypercapnia Qualified Code(s): J96.91 - Respiratory failure, unspecified with hypoxia; J96.92 - Respiratory failure, unspecified with hypercapnia Cellulitis Qualifiers: Site of cellulitis: extremity Site of cellulitis of extremity: lower extremity Laterality: left Qualified Code(s): L03.116 - Cellulitis of left lower limb Disposition: ADMITTED INPATIENT 09 Certified Medical Emergency: Emergent Condition: Critical - Critical Care Note This patient required my direct & personal management of CC.: Yes Total Time (mins): 35 Critical Care Statement: This patient required my direct personal management to treat or rule out processes, the absence of which, could potentiallly result in sudden, clinically significant life or limb threatening deterioration. Attestation - Physician/ AIME Attestation Patient care was provided by Advanced Practice Provider:: No The physician spent face to face time with patient:: Yes Advanced Practice Provider documentation review:: Supervising physician onsite and consulted in the evaluation and care of this patient. The physician did have a face to face encounter with the patient. This chart was documented by the indicated scribe, (Kristi Mackay Scribe) and accurately reflects the services I performed and decisions made by me, Dougie Enriquez MD, as attested by the provider's signature.
--- NOTE | 2018-05-23 06:00 | HISTORY AND PHYSICAL ---
PRIMARY CARE PHYSICIAN: Dr. Kayode Go. CHIEF COMPLAINT: Shortness of breath. HISTORY OF PRESENTING ILLNESS: An 82-year-old female with a history of COPD, chronic pain, obstructive sleep apnea, and Pickwickian syndrome who initially had presented to [facility] with complaint of shortness. The patient was evaluated there, and she was put on BiPAP due to hypercapnic respiratory failure. Due to lack of subspecialist care, she was transferred to [facility] for further evaluation and management. At the time of my examination, patient was somewhat drowsy and not much history could be obtained from the patient. Remainder of the history is obtained from previous records. PAST MEDICAL HISTORY: Includes COPD, chronic opioid use disorder, chronic pain, Pickwickian syndrome, obstructive sleep apnea, left breast cancer and right thigh cancer. PAST SURGICAL HISTORY: Appendectomy, left ankle surgery, back surgery, right AKA, bilateral mastectomy, and hemorrhoidectomy. ALLERGIES: [*] and other medications. CURRENT MEDICATIONS: 1. Oxycodone 50 mg p.o. q.8 hours. 2. Lyrica 75 mg p.o. b.i.d. 3. Zanaflex 4 mg p.o. b.i.d. 4. Lasix 40 mg p.o. daily. 5. Levothyroxine 25 mcg p.o. daily. 6. Myrbetriq 50 mg p.o. every morning. SOCIAL HISTORY: No history of smoking, alcohol or illicit drug use. FAMILY HISTORY: No history of coronary disease. REVIEW OF SYSTEMS: Unable to obtain due to the patient being somnolent. PHYSICAL EXAMINATION: GENERAL: Obese female. She is in mild to moderate respiratory distress currently on BiPAP. VITAL SIGNS: Temperature 98.9 degrees, pulse 79, respirations 17, and blood pressure 166/63. HEENT: Atraumatic, normocephalic. PERRLA. NECK: No masses. CHEST: Rhonchi. CARDIOVASCULAR: Regular rate and rhythm. ABDOMEN: Soft, obese. Positive bowel sounds. EXTREMITIES: Right AKA. : No bladder distention. NEUROLOGIC: She is awake and arousable. SKIN: Warm. There was some erythema and redness on the left lower extremity. LABORATORIES AND STUDIES: WBCs 5.29. Hemoglobin 10.8, hematocrit 38.1 and platelets 122,000. Sodium 139, potassium 4.6, chloride 99, CO2 31, BUN 13, and creatinine 2.6. Glucose 105. ASSESSMENT: This is an 82-year-old elderly female with a history of multiple medical problems including COPD, chronic opioid use disorder, Pickwickian syndrome, and obstructive sleep apnea who initially presented to [facility] due to respiratory failure. She was found to be hypercapnic. She was put on BiPAP. Due to lack of subspecialist care, she was transferred to [facility] for further evaluation and management. 1. Acute hypercapnic respiratory failure. 2. Chronic obstructive pulmonary disease exacerbation. 3. Left lower extremity cellulitis. 4. Chronic low back pain. PLAN: 1. The patient is admitted to [facility]. 2. Continue patient on BiPAP. 3. Continue with DuoNeb's. 4. We will start patient on IV antibiotics. 5. We will give patient adequate pain control. 6. Place patient on DVT prophylaxis with heparin. 7. We will continue to follow and reassess. Make further recommendation based on patient's clinical course. cc: Cristopher Randhawa MD
--- NOTE | 2018-05-23 06:36 | Diag Imaging Result Doc PS360 ---
EXAM: CHEST-2 VIEWS HISTORY: cough, rhonchi, AMS TECHNIQUE: Chest three views COMPARISON: 04/17/2018 FINDINGS: Poor inspiratory effort. The patient is flexed and rotated to the right. The heart is enlarged and there is pulmonary edema. Small pleural effusions. There may be underlying basilar pneumonia as well. IMPRESSION: Cardiomegaly with pulmonary edema and pleural effusions consistent with congestive failure. Possible underlying pneumonia as well. Electronically signed by Quique Valentine 05/23/2018 6:34 AM
[2018-05-23 07:01] LABS: ALLEN TEST YES; BE 5.7 mmoll (-3.0-3.0); BLOOD TYPE ARTERIAL; HCO3-(ACT) 29.3 mmoll (20.0-26.0); METHB 1.4 % (0.0-1.5); O2(CT) 14.9 mL/dL (15.0-23.0); O2HB 95.2 % (95.0-99.0); PO2(98.6) 94 mmHg (60-100); SAMPLE BLOOD; SAO2 98.1 % (95.0-100.0); SRATE 16 BPM; pH(98.6) 7.28 (7.35-7.45)
[2018-05-23 07:04] LABS: MODALITY BI PAP; PCO2(98.6) 73 mmHg (35-45)
[2018-05-23] MEDS: DUONEB (A & A) INH SCH ×5 (07:40→23:22)
[2018-05-23] MEDS: HEPARIN SUBQ SCH ×2 (09:13→20:26)
[2018-05-23] MEDS: LASIX PO SCH (10:27)
[2018-05-23] MEDS: SYNTHROID PO SCH (10:27)
[2018-05-23] MEDS: MYRBETRIQ E.R. PO SCH (10:27)
[2018-05-23] MEDS: PAXIL PO SCH (10:27)
[2018-05-23 12:20] LABS: ALLEN TEST YES; BE 7.8 mmoll (-3.0-3.0); BLOOD TYPE ARTERIAL; HCO3-(ACT) 30.9 mmoll (20.0-26.0); METHB 1.5 % (0.0-1.5); O2(CT) 14.4 mL/dL (15.0-23.0); PO2(98.6) 60 mmHg (60-100); SAMPLE BLOOD; SAO2 95.3 % (95.0-100.0); THB 11.1 g/dL (11.5-17.4); pH(98.6) 7.36 (7.35-7.45)
[2018-05-23 12:21] LABS: MODALITY BI PAP; PCO2(98.6) 62 mmHg (35-45)
--- NOTE | 2018-05-23 12:35 | PROGRESS NOTE ---
DATE: 05/23/2018 SUBJECTIVE: This morning Ms. Godinez is in the [facility] currently on the BiPAP, very minimum verbally, but for most part she said she was feeling a lot better. OBJECTIVE: Vital signs: Blood pressure 175/69, pulse 74, respirations 16, and temperature 97.7 degrees. Patient was saturating 97% on the BiPAP. General: Ms. Godinez is an 82-year-old female. She is in bed. She was in respiratory distress. She is currently under the BiPAP. Mucosa is pink and moist. Anicteric. Acyanotic. Neck: Supple. Chest: Air entry is bilaterally reduced. There is a prolonged expiratory phase of respiration, and there is diffuse wheezing, and rhonchi and expiration in both lung rutledge. Cardiovascular: Regular rate and rhythm, did not appreciate any murmurs. Abdomen: Soft, nontender. Bowel sounds are present. There is an old midline surgical scar. Extremities: There are chronic stasis changes on the left lower extremity. Distal pulse was present. The right has an AKA with a healed stump. Musculoskeletal: There are bilateral breast implants noted. There is also bilateral shoulder surgery scars noted, and a scar on the right AKA stump. INSURANCE SALESMAN: Patient is slightly drowsy, but easily arousable and will follow basic commands. LABORATORY DATA: None for this morning except ABG reveals pH is 73. Rest of the lab works have been unremarkable. ASSESSMENT: 1. Acute hypoxemic respiratory failure. The patient is currently on a BiPAP. 2. Acute on chronic hypercarbic respiratory failure. 3. Bilateral lung infiltrates suggestive of pneumonia. We will continue with current IV antibiotics. 4. Suspected COPD exacerbation. The patient is on antibiotics, bronchodilation therapy, and steroids. We will add steroids to the current therapy. 5. History of obesity hypoventilation syndrome. 6. Chronic opioid use disorder noted. 7. History of left breast cancer, status post bilateral mastectomy with breast implants. PLAN: In general, I think Ms. Godinez continues to be remarkably stable. Continue with the BiPAP to correct both the hypercarbia as well as oxygen needs. We will continue with the nebulizations, antibiotics, and we have added steroids. I will also add doxycycline to cover for possible MRSA. We will repeat her ABG's and labs for tomorrow morning. cc: Butch Solares MD
[2018-05-23] MEDS: SOLU-MEDROL IV SCH ×2 (12:55→20:26)
[2018-05-23] MEDS: DOXYCYCLINE 100 MG in NS 250 ML IV SCH (12:55)
[2018-05-23] MEDS: TYLENOL PO PRN ×2 (16:03→23:25)
[2018-05-23] MEDS ORDERED: LASIX PO ONE (21:33)
--- NOTE | 2018-05-24 00:19 | CONSULTATION ---
DATE OF CONSULTATION: 05/23/2018 REQUESTING PROVIDER: Dr. Cristopher Randhawa. REASON FOR CONSULTATION: Respiratory failure, COPD. HISTORY OF PRESENT ILLNESS: This is an 82-year-old female with a medical history of COPD, morbid obesity, Pickwickian syndrome with obstructive sleep apnea, chronic hypercapnic hypoxemic respiratory failure, congestive heart failure, hyperthyroidism, hypertension, gastroesophageal reflux disease, restless legs syndrome, Left breast cancer, right thigh cancer, recurrent left lower extremity cellulitis, chronic back pain with chronic opioid use and abuse, anxiety, and noncompliance with medication and follow up. She presented to the [place] [facility] with headache and intermittent fever for 3 to 4 days. She was put on BiPAP in the ER. Chest x-ray revealed cardiomegaly with pulmonary edema and pleural effusions consistent with congestive failure, possible underlying pneumonia as well. She has been admitted to the [facility] in our facility for further evaluation and management. The patient currently is still on BiPAP , she appears drowsy . There is no family at the bedside. All the information is obtained from the E-chart. PAST MEDICAL HISTORY: 1. COPD. 2. Morbid obesity. Current BMI 53.83. 3. Pickwickian syndrome with obstructive sleep apnea. 4. Chronic hypercapnic hypoxemic respiratory failure. The patient refused oxygen at home. 5. Congestive heart failure. 6. Hypothyroidism. 7. Hypotension. 8. Gastroesophageal reflux disease. 9. Restless legs syndrome. 10. Left breast cancer in 1999, status post bilateral mastectomy in 1961. 11. Recurrent left lower extremity cellulitis. 12. Chronic back pain with chronic opioid use and abuse. 13. Anxiety. 14. Noncompliance with medication and follow-up. PAST SURGICAL HISTORY: 1. Appendectomy. 2. Left ankle repair. 3. Adenoidectomy. 4. Low back surgery. 5. Hysterectomy. 6. 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 7. Bilateral mastectomy. 8. Right shoulder surgery. 9. Hemorrhoidectomy. SOCIAL HISTORY: The patient lives with her at home. She has no history of tobacco, alcohol, or illicit drug use. FAMILY HISTORY: Positive for diabetes and heart disease. ALLERGIES: Buprenex, Stadol, Nubain, morphine, Toradol, Cipro. REVIEW OF SYSTEMS: Unable to be obtained. PHYSICAL EXAMINATION: Vital Signs: Temperature 98.8 degrees, blood pressure 160/60, pulse 79, respiratory rate 18, oxygen saturation 100% on BiPAP with pressure 18/8 and FiO2 40%. General: Morbidly obese, breathing through BiPAP, lying quietly in bed with no acute distress noted. She opens her eyes upon my verbal stimuli several times, but says no words. HEENT: Atraumatic. Trachea midline. Mucosa pink and moist. Respiratory: Chest expansion equal bilaterally. Diminished breathing sounds bibasilarly with prolonged expiratory phase and rhonchi bilaterally. Cardiovascular: Regular rate and rhythm without murmur noted. Gastrointestinal : Bowel sounds normoactive in all 4 quadrants. Soft and Obese. Extremities: Right above- the- knee amputation with a healed stump. Left lower extremity trace pedal edema with an about 5 cm round healing wound on the posterior hill. Neurologic: The patient is drowsy. She is responsive to verbal stimuli by opening her eyes at times, but nonverbal and not following commands. LAB DATA: ABG with pH 7.28, pCO2 of 73, PO2 of 94, HCO3 of 29.3, base excess 5.7, and oxyhemoglobin 95.2. ASSESSMENT: This is an 82-year-old female with a medical history of chronic obstructive pulmonary disease, morbid obesity, Pickwickian syndrome with obstructive sleep apnea, chronic hypercapnic hypoxemic respiratory failure, congestive heart failure, hypothyroidism, hypertension, gastroesophageal reflux disease, restless legs syndrome, left breast cancer, right thigh cancer, recurrent, left lower extremity cellulitis, chronic back pain with chronic opioid use and abuse, anxiety, and noncompliance with medication and followup. She has been admitted to the [facility] with acute on chronic hypoxemic hypercapnic respiratory failure, chronic obstructive pulmonary disease exacerbation, and left lower extremity cellulitis. 1. Acute on chronic hypoxemic hypercapnic respiratory failure. 2. Chronic obstructive pulmonary disease exacerbation. 3. Pleural effusions. 4. Pickwickian syndrome with obstructive sleep apnea. 5. Left lower extremity cellulitis. PLAN: 1. Continue antibiotics, steroids, and bronchodilators. 2. Continue supplemental oxygen and BiPAP. 3. Follow up with ABG, chest x-ray, CBC, and BMP. 4. Collect sputum for culture and sensitivity, if possible. 5. Follow up with final results of blood and urine cultures. 6. Continue GI and DVT prophylaxis. Thank you for the courtesy of this consult. Dictated by SARAH Velasco for Vivian Jones MD cc: SARAH Velasco MD [facility]
[2018-05-24] MEDS ORDERED: CALMOSEPTINE OINTMENT TOP PRN (01:16)
[2018-05-24] MEDS: ROCEPHIN 1 GM in NS 50 ML IV SCH (01:33)
[2018-05-24] MEDS: DOXYCYCLINE 100 MG in NS 250 ML IV SCH ×2 (01:33→13:16)
[2018-05-24] MEDS: DUONEB (A & A) INH SCH ×6 (03:34→23:55)
[2018-05-24] MEDS: SOLU-MEDROL IV SCH ×3 (04:35→20:05)
[2018-05-24 05:13] LABS: ALLEN TEST YES; BE 4.3 mmoll (-3.0-3.0); BLOOD TYPE ARTERIAL; HCO3-(ACT) 28.2 mmoll (20.0-26.0); O2HB 94.1 % (95.0-99.0); PO2(98.6) 75 mmHg (60-100); SAMPLE BLOOD; SAO2 96.4 % (95.0-100.0); THB 12.8 g/dL (11.5-17.4); pH(98.6) 7.36 (7.35-7.45)
[2018-05-24 05:15] LABS: PCO2(98.6) 55 mmHg (35-45)
[2018-05-24 05:16] LABS: MODALITY VENTIMASK
[2018-05-24 05:58] LABS: BASO# 0.01 X1000 (0.0-0.2); BASO% 0.1 % (0.0-0.8); HEMATOCRIT 38.8 % (37.0-47.0); HEMOGLOBIN 11.8 g/dL (12.0-16.0); MCH 26.6 PG (27-31); MCHC 30.4 g/dL (33-37); MCV 87.4 FL (81-99); PLT 205 X1000 (130-400); RBC 4.44 XMIL (4.2-5.4); RDW 14.6 % (11.5-14.5); WBC 6.87 X1000 (4.8-10.8)
--- NOTE | 2018-05-24 08:25 | Diag Imaging Result Doc PS360 ---
EXAM: CHEST-1 VIEW - 05/24/2018 HISTORY: SOB TECHNIQUE: Portable chest COMPARISON: 05/23/2018 FINDINGS: The patient is rotated towards the right. There is cardiomegaly. There is a possible increase in infiltrate/edema on the left, but this could be exaggerated by differences in rotation and soft tissue overlap. There is mild infiltrate or atelectasis at the right base. There is no large pleural effusion or pneumothorax identified. IMPRESSION: Possible increase in infiltrate/edema on the left, versus exaggeration by differences in patient rotation and soft tissue overlap. Grossly stable infiltrate/atelectasis at right base. Electronically signed by Ritchie Andrew 05/24/2018 8:22 AM
[2018-05-24 08:30] LABS: AGAP 13; BUN 13 mg/dL (8-22); CALCIUM 9.4 mg/dL (8.8-10.2); CHLORIDE 98 mmol/L (98-107); COSMO 281; CREATININE 0.6 mg/dL (0.5-0.9); ESTIMATED GFR > 60; GLUCOSE 129 mg/dL (70-104); POTASSIUM 4.1 mmol/L (3.5-5.1); SODIUM 140 mmol/L (136-145); TCO2 29 mmol/L (25-35)
[2018-05-24] MEDS: SYNTHROID PO SCH (08:33)
[2018-05-24] MEDS: MYRBETRIQ E.R. PO SCH (08:33)
[2018-05-24] MEDS: HEPARIN SUBQ SCH ×2 (08:33→20:05)
[2018-05-24] MEDS: PAXIL PO SCH (08:33)
[2018-05-24] MEDS: LASIX PO SCH (08:34)
[2018-05-24] MEDS ORDERED: NORCO-5 PO ONE (18:00)
--- NOTE | 2018-05-24 19:25 | PROGRESS NOTE ---
DATE: 05/24/2018 SUBJECTIVE: Patient resting comfortable On bed. Not in any obvious distress. OBJECTIVE: Vital signs: Temperature 98.4 degrees, pulse 106 respirations 18, blood pressure is 174/81, oxygen saturation is 95%. HEENT: Patient is atraumatic, normocephalic. Cardiovascular: S1, S2. Respiratory: Has rhonchi in both lung [place]. Abdomen: Soft, nontender, no masses felt. Extremities: Has a right above-knee amputation and there was significant edema in the left lower extremity. LABORATORY DATA: WBC 6.87, hematocrit 38.8 with a platelet count of 205,000. ABG 7.36/55/75/96.4 percent, sodium is 140, potassium 4.1, chloride is 98, bicarb 29, BUN 17, creatinine 0.6. ASSESSMENT AND PLAN: 1. Acute hypercapnic respiratory failure secondary to chronic obstructive pulmonary disease exacerbation as well as pneumonia. Maintain patient on nebulized bronchodilators along with steroids. Use BiPAP if needed and also continue antibiotics for pneumonia. 2. History of left breast cancer status post bilateral mastectomy with breast implants. Aware. 3. History of right above-knee amputation. Aware . 4. Deep vein thrombosis prophylaxis heparin. GI prophylaxis PPI. cc: Darren Anders MD [facility] CENTERMarisol
[2018-05-24] MEDS: OXY IR PO SCH (20:05)
[2018-05-24] MEDS: LYRICA PO SCH (20:05)
[2018-05-25] MEDS: ROCEPHIN 1 GM in NS 50 ML IV SCH (01:06)
[2018-05-25] MEDS: DOXYCYCLINE 100 MG in NS 250 ML IV SCH ×2 (01:06→13:38)
[2018-05-25] MEDS: DUONEB (A & A) INH SCH ×6 (03:31→23:15)
[2018-05-25] MEDS: OXY IR PO SCH ×3 (04:09→21:43)
[2018-05-25] MEDS: SOLU-MEDROL IV SCH ×3 (04:10→21:42)
[2018-05-25 05:15] LABS: ALLEN TEST YES; BE 6.7 mmoll (-3.0-3.0); BLOOD TYPE ARTERIAL; HCO3-(ACT) 30.1 mmoll (20.0-26.0); METHB 1.1 % (0.0-1.5); O2(CT) 16.2 mL/dL (15.0-23.0); PCO2(98.6) 50 mmHg (35-45); PO2(98.6) 97 mmHg (60-100); SAMPLE BLOOD; SAO2 98.3 % (95.0-100.0); THB 11.9 g/dL (11.5-17.4); pH(98.6) 7.42 (7.35-7.45)
[2018-05-25 05:19] LABS: MODALITY CANNULA
[2018-05-25 05:43] LABS: HEMATOCRIT 37.9 % (37.0-47.0); HEMOGLOBIN 11.4 g/dL (12.0-16.0); IMM GRAN# 0.06 X1000 (0.0-0.04); IMM GRAN% 1.7 % (0.0-0.5); LYMPH# 0.34 X1000 (1.2-3.4); LYMPH% 9.7 % (20.5-51.1); MCH 25.8 PG (27-31); MCHC 30.1 g/dL (33-37); MCV 85.7 FL (81-99); MONO# 0.13 X1000 (0.11-0.59); MONO% 3.7 % (1.7-9.3); MPV 9.9 FL (7.4-10.4); NEUT# 2.98 X1000 (1.4-6.5); NEUT% 84.9 % (42.2-75.2); PLT 166 X1000 (130-400); RBC 4.42 XMIL (4.2-5.4); WBC 3.51 X1000 (4.8-10.8)
[2018-05-25] MEDS: PROTONIX PO SCH ×2 (05:50→06:29)
[2018-05-25 06:15] LABS: AGAP 11; ALB/GLOB RATIO 1.1; ALBUMIN 3.5 g/dL (3.5-5.0); ALKALINE PHOSPHATASE 83 U/L (32-104); BUN 21 mg/dL (8-22); CALCIUM 9.3 mg/dL (8.8-10.2); CHLORIDE 97 mmol/L (98-107); COSMO 280; CREATININE 0.6 mg/dL (0.5-0.9); ESTIMATED GFR > 60; GLUCOSE 129 mg/dL (70-104); GOT 10 U/L (10-30); GPT 7 U/L (10-36); POTASSIUM 3.9 mmol/L (3.5-5.1); SODIUM 138 mmol/L (136-145); TCO2 30 mmol/L (25-35); TOTAL BILIRUBIN 0.18 mg/dL (0.20-1.00); TOTAL PROTEIN 6.6 g/dL (6.3-8.3)
--- NOTE | 2018-05-25 07:41 | Diag Imaging Result Doc PS360 ---
EXAM: CHEST-1 VIEW INDICATION: copd TECHNIQUE: One view COMPARISON: 05/24/2018 FINDINGS: Infiltrate and/or atelectasis at the left lung base is essentially stable. The density on the right has decreased, likely due to better positioning as compared to the previous study. No new consolidation is identified. Cardiac silhouette is stable. IMPRESSION: Decrease in opacity on the right that is probably due to better positioning on the current study. Stable chest, otherwise. Electronically signed by Fidel Mackay 05/25/2018 7:39 AM
[2018-05-25] MEDS: PAXIL PO SCH (08:42)
[2018-05-25] MEDS: LYRICA PO SCH ×2 (08:42→21:43)
[2018-05-25] MEDS: HEPARIN SUBQ SCH ×2 (08:42→21:42)
[2018-05-25] MEDS: LASIX PO SCH (08:42)
[2018-05-25] MEDS: SYNTHROID PO SCH (08:42)
[2018-05-25] MEDS: MYRBETRIQ E.R. PO SCH (08:42)
--- NOTE | 2018-05-25 11:01 | PROGRESS NOTE ---
DATE: 05/25/2018 SUBJECTIVE: Patient resting comfortably in bed. . OBJECTIVE: Vital signs: Temperature 98.2 degrees, pulse 79, respiratory rate 16, blood pressure is 179/70, oxygen saturation is 97%. HEENT: Atraumatic, normocephalic. Cardiovascular System: S1, S2. Respiratory System: Has rhonchi in the lung [place]. Abdomen: Soft, nontender. No masses felt. Extremity: She has right above-knee amputation. Central nervous system: No obvious focal deficit noted. DIAGNOSTIC STUDIES: WBC 3.51, hematocrit. 37.9 with a platelet count of 166. Sodium is 138, potassium 3.9, chloride is 97, bicarbonate is 30, BUN is 21, creatinine is 0.6. ABG 7.42/50/97/98.3%. ASSESSMENT AND PLAN: 1. Acute respiratory failure secondary to chronic obstructive pulmonary disease (COPD) exacerbation. The patient also has pneumonic infiltrate. Continue nebulized bronchodilators along with steroids and antibiotics. Use BiPAP if needed. 2. History of left breast cancer status post bilateral mastectomy with breast implants. Aware. 3. History of right above-knee amputation. Aware. 4. Deep vein thrombosis (DVT) prophylaxis. Heparin. 5. Gastrointestinal (GI) prophylaxis. PPI. cc: Darren Anders MD MTDD
[2018-05-25] MEDS ORDERED: TEARISOL OPH SOLUTION BOTH EYES PRN (13:05)
[2018-05-26] MEDS: ROCEPHIN 1 GM in NS 50 ML IV SCH ×2 (00:17→01:14)
[2018-05-26] MEDS ORDERED: OXY IR PO ONE (00:39)
[2018-05-26] MEDS ORDERED: DOXYCYCLINE PO ONE (00:40)
[2018-05-26] MEDS: DOXYCYCLINE 100 MG in NS 250 ML IV SCH ×2 (01:04→14:07)
[2018-05-26] MEDS: DUONEB (A & A) INH SCH ×4 (03:30→15:39)
[2018-05-26] MEDS: SOLU-MEDROL IV SCH ×2 (04:38→14:07)
[2018-05-26] MEDS: PROTONIX PO SCH (06:40)
[2018-05-26] MEDS: OXY IR PO SCH ×2 (06:40→15:17)
[2018-05-26] MEDS: LYRICA PO SCH (08:18)
[2018-05-26] MEDS: PAXIL PO SCH (08:18)
[2018-05-26] MEDS: LASIX PO SCH (08:18)
[2018-05-26] MEDS: MYRBETRIQ E.R. PO SCH (08:18)
[2018-05-26] MEDS: SYNTHROID PO SCH (08:18)
[2018-05-26] MEDS: HEPARIN SUBQ SCH (08:19)
[2018-05-26 11:13] VITALS: BP 136/70
--- NOTE | 2018-05-26 19:46 | DISCHARGE SUMMARY ---
ADMISSION DATE: 05/22/2018 DISCHARGE DATE: 05/26/2018 SUBJECTIVE: On day of discharge, she is breathing well. DISCHARGE DIAGNOSES: 1. Pneumonia. 2. Acute hypercapnic respiratory failure. 3. Chronic obstructive pulmonary disease exacerbation. 4. History of left breast cancer status post bilateral mastectomy. CONSULTATIONS: Dr. Jones. HISTORY: Briefly, this is an 82-year-old female presenting with COPD and Pickwickian syndrome. She was noted to have some hypercapnia on admission with pH 7.27 and pCO2 74. The patient I think was on BiPAP. Dr. Jones was consulted, we made some recommendations for antibiotics steroids and bronchodilators. I do not think she ever required intubation. Chest x-ray showed fluid and/or edema, and a right basilar infiltrate. She slowly clinically improved on the . Her blood gas was pH 7.42, pCO2 50, PaO2 of 97 and that is on 40%. At time of discharge, she was 95% on 3 L. Chest x-ray showed improvement, and she was felt stable for discharge on the . She is requesting to go home. She had lost IV access. DISCHARGE MEDICATIONS: 1. Diclofenac b.i.d. 2. Lasix 40 daily. 3. Myrbetriq 50 daily. 4. Oxycodone 15 q.8h p.r.n. pain. 5. Paxil 30 daily. 6. Ceftin 500 q.12 for 7 days. 7. DuoNeb q.6. 8. Doxycycline 100 p.o. b.i.d. for 7 days. 9. Synthroid 125 daily. 10. Prednisone taper. 11. Lyrica 75 p.o. b.i.d. 12. Zanaflex 4 p.o. b.i.d. p.r.n. DISPOSITION: She was to return for worsening shortness of breath or cough. Follow up with Dr. Jones in 2 weeks and PCP who is Dr. Kayode Go. Return for worsening shortness of breath or cough. We did set her up with a home nebulizer. We will continue to follow. TIME SPENT: This is a 32 minute discharge. Referred to Dr. Jones and Dr. Kayode Go. cc: Otoniel Lopez MD
== END 2018-05-26 18:37 | disposition home health service (06) | DRG 189 ==
LOC: P.ED 22:24 → SUATTDRO 22:25 → 3S 05-23 02:43 → 4N 05-25 14:52
PROVIDERS: ATTEND Internal Medicine
CPT/HCPCS: 51702; 71010; 71020; 71045; 71046; 80048; 80053; 81001; 82805; 83605; 83880; 84443; 85025; 87040; 87088; 94640; 94660; 94761; 94762; 96361; 96365; 99285; 99291; A9270; J0696; J1644; J2920; J7030; J7050

== ENCOUNTER 2019-03-29 17:43 | Inpatient (IN) ==
[2019-03-29] MEDS ORDERED: DUONEB (A & A) INH ONE (18:28)
[2019-03-29] MEDS ORDERED: SOLU-MEDROL IV ONE (18:28)
--- NOTE | 2019-03-29 18:31 | PROVIDER DOCUMENTATION ---
This chart was entered by Candice Bradshaw Scribe, acting as scribe for Lonny Peña MD. HPI-General Adult - General Source: patient - History of Present Illness -Gen Adult Nature of Presenting Problems: pt is a 83 yr old female presenting with 1 week complaint of worsening shortness of breath and increased sleepiness. pt reports productive cough with dark, yellow sputum and body aches. pt admits hx of sleep apnea but does not use Cpap, hx of home o2 use but not currently using it. pt reports she was seen here for similar complaint approx 1 yr ago and told it was due to being on to many medications. pt is wheelchair bound, uses electric wheelchair for mobility, hx of chronic pain due to multiple surgeries and advanced arthritis. Location of Pain/Injury: reports: generalized Pain Radiation: reports: no radiation Quality of Pain: reports: aching Severity: reports: moderate Onset/Duration: reports: 1 week ago Timing: reports: still present Context/Activities at Onset: reports: rest Modifying Factors: improves with: nothing Associated Symptoms: reports: cough, fatigue, muscle aches, shortness of breath, weakness. denies: chest pain, diarrhea, EENT symptoms, fever/chills, headaches, sinus congestion/drainage, nausea, syncope, vomiting Similar Symptoms Previously?: Yes (approx 1 yr ago) Recently seen or treated by another doctor?: No <Lonny Peña - Last Filed: 03/29/19 19:38> <Pietro Lu - Last Filed: 03/29/19 20:20> - General Chief Complaint: Shortness of Breath Stated Complaint: SOB Time Seen by Provider: 03/29/19 17:57 Allergies/Adverse Reactions: Patient Allergies Allergy/AdvReac Type Severity Reaction Status Date / Time buprenorphine HCl * Allergy Severe Unknown Verified 03/29/19 17:51 [From Buprenex] butorphanol tartrate * Allergy Severe Unknown Verified 03/29/19 17:51 [From Stadol] nalbuphine HCl * Allergy Severe Unknown Verified 03/29/19 17:51 [From Nubain] hydromorphone HCl * Allergy Intermediate HIVES Verified 03/29/19 17:51 [From Dilaudid] ciprofloxacin [From Cipro] Allergy Unknown Unknown Verified 03/29/19 17:51 ciprofloxacin HCl * Allergy Unknown Unknown Verified 03/29/19 17:51 [From Cipro] morphine Allergy Unknown Unknown Verified 03/29/19 17:51 buprenorphine [From Buprenex] Allergy Unknown Verified 03/29/19 17:51 butorphanol [From Stadol] Allergy Unknown Verified 03/29/19 17:51 hydromorphone [From Dilaudid] Allergy HIVES Verified 03/29/19 17:51 ketorolac [From Toradol] Allergy Unknown Verified 03/29/19 17:51 nalbuphine [From Nubain] Allergy Unknown Verified 03/29/19 17:51 ketorolac tromethamine * AdvReac Mild Unknown Verified 03/29/19 17:51 [From Toradol] Home Medications: Home Medication List Medication Instructions Recorded Confirmed Last Taken Type Levothyroxine Sodium 125 mcg PO DAILY #30 tablet 01/09/17 03/29/19 05/22/18 Rx Tizanidine [Zanaflex] 4 mg PO BID tablet 02/05/17 03/29/19 05/22/18 Rx Diclofenac Sodium/Misoprostol 1 each PO BID 05/21/17 03/29/19 05/22/18 History [Arthrotec 50 mg-200 Mcg Tab] Furosemide [Lasix] 40 mg PO DAILY 07/05/17 03/29/19 05/22/18 History Mirabegron [Myrbetriq] 50 mg PO QAM 07/05/17 03/29/19 05/22/18 History Paroxetine [Paxil] 30 mg PO DAILY 11/19/17 03/29/19 05/22/18 History Pregabalin [Lyrica] 75 mg PO BID #60 cap 01/01/18 03/29/19 05/22/18 Rx Oxycodone HCl 15 mg PO RTQ8H 04/03/18 03/29/19 05/22/18 History Albuterol 2.5MG/Ipratrop 0.5MG 3 ml INH Q6H #120 neb 05/26/18 03/29/19 Unknown Rx [Duoneb (A & A)] Clonazepam [Klonopin] 1 tab PO QHS 01/20/19 03/29/19 Unknown History Review of Systems - Adult - REVIEW OF SYSTEMS - ADULT Constitutional: reports: fatique (increased sleepiness/lethargy). denies: chills, fever Eyes: reports: no symptoms reported Ears, Nose, Mouth & Throat: denies: ear pain, sinus problem, throat pain Cardiovascular: reports: edema (LLE). denies: chest pain, palpitations, syncope Respiratory: reports: cough (dark, yellow sputum), shortness of breath. denies: wheezing Gastrointestinal: denies: abdominal pain, diarrhea, nausea, vomiting Genitourinary: reports: no symptoms reported Musculoskeletal: reports: no symptoms reported Integumentary: reports: no symptoms reported Neurological: denies: dizziness/vertigo, headache/migraines, syncope Psychiatric: reports: no symptoms reported Endocrine: reports: no symptoms reported Hematologic/Lymphatic: reports: no symptoms reported Allergic/Immunologic: reports: no symptoms reported All Other Systems: Reviewed and Negative <Lonny Peña - Last Filed: 03/29/19 19:38> Past History - Adult - PAST MEDICAL HISTORY-ADULT Review of Records: reports: Old Records Reviewed, Nursing Assessment Review, Medications Reviewed, Social history reviewed & non-contributory. 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), chronic pain Neurological: reports: denies history Psychiatric: reports: anxiety Endocrine/Immune: reports: thyroid disorder Other Conditions: reports: MRSA - PRIOR SURGERIES/PROCEDURES Surgical/Procedure History: reports: cholecystectomy, hysterectomy, orthopedic (extremity) (R AKA, L foot, R shoulder), joint replacement (TKR), breast (mastectomy) - IMMUNIZATION STATUS Childhood Immunizations: See Nurse Assessment Flu Vaccine: See Nurse Assessment - FAMILY HISTORY Family History: reviewed, not pertinent - SOCIAL HISTORY Smoking: non-smoker Substance Use: denies Living Situation: family <Lonny Peña - Last Filed: 03/29/19 19:38> Physical Exam-General - PHYSICAL EXAM-ADULT Initial Vital Signs Reviewed: Yes - CONSTITUTIONAL General Appearance: no apparent distress, obese (morbidly obese), lethargic, other (pt sitting in power wheelchair) - EYES Eyes: PERRL/EOMI, pink conjunctivae - HEAD, EARS, NOSE, MOUTH & THROAT HENMT: normocephalic/atraumatic, moist mucous membranes - NECK Neck: non-tender, full range of motion, supple, normal inspection - RESPIRATORY Respiratory: chest non-tender, lungs clear, decreased breath sounds (diminished bilaterally), increased rate, other (shallow breathing, poor inspritory effort) - CARDIOVASCULAR Cardiovascular: normal peripheral pulses, regular rate, rhythm - GASTROINTESTINAL (ABDOMEN) Abdominal Exam: non tender, soft - LYMPHATIC Lymphatic: no adenopathy - MUSCULOSKELETAL Extremity: other (right sided contractures, causing right side leaning, RAKA, 4+ pitting edema to LLE) - SKIN Integumentary: normal color, normal turgor, warm/dry <Lonny Peña - Last Filed: 03/29/19 19:38> Progress - PLAN OF CARE/RESULTS Progress/Plan/Lab Results: Vital Signs - 8 hr 03/29/19 17:48 Temperature 97.4 F L Pulse Rate 80 Respiratory Rate 22 Blood Pressure 163/72 O2 Sat by Pulse Oximetry 90 L Result Diagrams: 03/29/19 18:35 03/29/19 18:35 - REASSESSMENT Reassessment #1 Time Reassessed: 18:29 Status: unchanged (Old chart reviewed, has hx of COPD, CHF, over medication, respiratory failure. I am holding off on fluid bolus at this time, she has only 1 SIRS criteria, until we get ABG, lactate, and chest x-ray back. May need to be admitted.) - XRAY 1 XRAY Study: Chest Impression: Abnormal (Signed EXAM: CHEST-1 VIEW - 03/29/2019 HISTORY: sob TECHNIQUE: Portable chest COMPARISON: 01/20/2019 FINDINGS: There is stable mild cardiomegaly. There is elevation of the left hemidiaphragm with mild left basilar atelectasis/scarring similar to prior. There is no acute consolidation, gross pulmonary edema, substantial pleural effusion, or pneumothorax identified. There are apparent chronic severe erosions of the bilateral humeral heads noted. IMPRESSION: Stable mild cardiomegaly. Stable elevation of left hemidiaphragm with left basilar atelectasis/scarring. Electronically signed by Ritchie Andrew 03/29/2019 7:09 PM 03/29/191908 Interpreting Physician: Ritchie Andrew MD Dictated Date/Time: 03/29/191906) Comparison with other Films: no changes (01/20/19) - CHANGE OF SHIFT REPORT (ED Provider) 1 Report Given and Care Transferred to:: [facility] Time of Transfer: 19:00 Items Pending: Labs, XRAY Results <Lonny Peña - Last Filed: 03/29/19 19:38> - PLAN OF CARE/RESULTS Progress/Plan/Lab Results: Vital Signs - 8 hr 03/29/19 17:48 03/29/19 18:15 03/29/19 19:24 Temperature 97.4 F L Pulse Rate 80 80 72 Respiratory Rate 22 22 18 Blood Pressure 163/72 O2 Sat by Pulse Oximetry 90 L 90 L 95 Laboratory Results - last 24 hr 03/29/19 03/29/19 03/29/19 18:14 18:35 18:35 WBC 4.55 L RBC 4.78 Hgb 11.3 L Hct 40.7 MCV 85.1 MCH 23.6 L MCHC 27.8 L RDW Std Deviation 15.1 H Plt Count 217 MPV 10.8 H Immature Gran % (Auto) 0.2 Neut % (Auto) 65.6 Lymph % (Auto) 22.9 [place] % (Auto) 8.6 Eos % (Auto) 1.8 Baso % (Auto) 0.9 H Immature Gran # (Auto) 0.01 Neut # (Auto) 2.99 Lymph # (Auto) 1.04 L [place] # (Auto) 0.39 Eos # (Auto) 0.08 Baso # (Auto) 0.04 PT INR PTT (Actin FS) Specimen Type ARTERIAL Sample Site R RADIAL pH 7.38 pCO2 59 H* pO2 52 L HCO3 31.1 H Base Excess 8.2 H Oxyhemoglobin 88.1 L* ABG O2 Sat (Calculated) 13.4 L ABG O2 Saturation 91.4 L ABG Carboxyhemoglobin 2.50 ABG Methemoglobin 1.2 Robert Test YES A-a O2 Difference 24.0 Total Hemoglobin 10.8 L Lactate 1.20 Blood Gas Modality ROOM AIR FiO2 % 21.0 Sodium 141 Potassium 4.3 Chloride 101 Carbon Dioxide 27 Anion Gap 14 BUN 10 Creatinine 0.6 Estimated GFR/1.73 m2 > 60 BUN/Creatinine Ratio 17 Glucose 136 H Calculated Osmolality 282 Calcium 9.3 Magnesium 2.0 Total Bilirubin 0.20 AST 16 ALT 9 L Alkaline Phosphatase 117 H Creatine Kinase 36 Troponin T Ihv-[id number]-Tghqhljceuf Pept Total Protein 7.1 Albumin 4.4 Globulin 3.0 Albumin/Globulin Ratio 2.0 Plasma Lactate Plasma/Serum Ethyl Alc Influenza A (Rapid) Influenza B (Rapid) 03/29/19 03/29/19 03/29/19 18:35 18:35 18:35 WBC RBC Hgb Hct MCV MCH MCHC RDW Std Deviation Plt Count MPV Immature Gran % (Auto) Neut % (Auto) Lymph % (Auto) [place] % (Auto) Eos % (Auto) Baso % (Auto) Immature Gran # (Auto) Neut # (Auto) Lymph # (Auto) [place] # (Auto) Eos # (Auto) Baso # (Auto) PT 11.8 INR 0.83 PTT (Actin FS) < 20.0 L Specimen Type Sample Site pH pCO2 pO2 HCO3 Base Excess Oxyhemoglobin ABG O2 Sat (Calculated) ABG O2 Saturation ABG Carboxyhemoglobin ABG Methemoglobin Robert Test A-a O2 Difference Total Hemoglobin Lactate Blood Gas Modality FiO2 % Sodium Potassium Chloride Carbon Dioxide Anion Gap BUN Creatinine Estimated GFR/1.73 m2 BUN/Creatinine Ratio Glucose Calculated Osmolality Calcium Magnesium Total Bilirubin AST ALT Alkaline Phosphatase Creatine Kinase Troponin T < 0.010 Yco-Y-Skzikrgslfl Pept Total Protein Albumin Globulin Albumin/Globulin Ratio Plasma Lactate Plasma/Serum Ethyl Alc Influenza A (Rapid) Influenza B (Rapid) 03/29/19 03/29/19 03/29/19 18:35 18:35 18:35 WBC RBC Hgb Hct MCV MCH MCHC RDW Std Deviation Plt Count MPV Immature Gran % (Auto) Neut % (Auto) Lymph % (Auto) [place] % (Auto) Eos % (Auto) Baso % (Auto) Immature Gran # (Auto) Neut # (Auto) Lymph # (Auto) [place] # (Auto) Eos # (Auto) Baso # (Auto) PT INR PTT (Actin FS) Specimen Type Sample Site pH pCO2 pO2 HCO3 Base Excess Oxyhemoglobin ABG O2 Sat (Calculated) ABG O2 Saturation ABG Carboxyhemoglobin ABG Methemoglobin Robert Test A-a O2 Difference Total Hemoglobin Lactate Blood Gas Modality FiO2 % Sodium Potassium Chloride Carbon Dioxide Anion Gap BUN Creatinine Estimated GFR/1.73 m2 BUN/Creatinine Ratio Glucose Calculated Osmolality Calcium Magnesium Total Bilirubin AST ALT Alkaline Phosphatase Creatine Kinase Troponin T Snm-Z-Xzxztmjchah Pept 133 Total Protein Albumin Globulin Albumin/Globulin Ratio Plasma Lactate 0.9 Plasma/Serum Ethyl Alc Influenza A (Rapid) NEGATIVE Influenza B (Rapid) NEGATIVE Orders Category Date Time Status Cardiac Monitoring DIRECTED Care 03/29/19 18:08 Active IV Insertion ORDERED Care 03/29/19 18:08 Completed Notify Physician As Ordered Care 03/29/19 18:08 Active Nursing- Obtain EKG once Care 03/29/19 18:10 Active CHEST-1 VIEW [RAD] Stat Exams 03/29/19 18:08 Completed ABG [RESP] Routine Lab 03/29/19 18:14 Completed ALCOHOL BLOOD Stat Lab 03/29/19 18:35 Completed BLOOD CULTURE [BLDCUL] Stat Lab 03/29/19 18:41 Ordered CBC WITH DIFF [HEME] Stat Lab 03/29/19 18:35 Completed CK PROFILE [SP CHEM] Stat Lab 03/29/19 18:35 Completed COMPREHENSIVE METABOLIC PANEL [CHEM] Stat Lab 03/29/19 18:[address] Stat Lab 03/29/19 18:35 Completed LACTATE, PLASMA [CHEM] Lab 03/29/19 18:35 Completed LACTATE, PLASMA [CHEM] Lab 03/29/19 21:15 Uncollected LACTATE, PLASMA [CHEM] Lab 03/30/19 00:15 Uncollected MAGNESIUM [CHEM] Stat Lab 03/29/19 18:35 Completed PRO B-NATRIURETIC PEPTIDE Stat Lab 03/29/19 18:35 Completed PROTIME WITH INR [COAG] Stat Lab 03/29/19 18:35 Completed PTT [COAG] Stat Lab 03/29/19 18:35 Completed TROPONIN T Stat Lab 03/29/19 18:35 Completed URINALYSIS W/POSS RFLX CULT [URINALYSIS] Stat Lab 03/29/19 18:08 Uncollected URINE DRUG SCREEN PL Stat Lab 03/29/19 18:10 Uncollected Albuterol 2.5MG/Ipratrop 0.5MG [Duoneb (A & A)] Med 03/29/19 18:28 Discontinued 3 ml INH NOW ONE Methylprednisolone Sod Succ [Solu-Medrol] Med 03/29/19 18:28 Discontinued 125 mg IV NOW ONE Aerosol Treatments Routine Oth 03/29/19 18:28 Completed Aerosol Treatments Stat Oth 03/29/19 18:28 Completed Oxygen Device Stat Oth 03/29/19 18:08 Completed EKG [EKG] Stat Ther 03/29/19 18:10 Draft Result Diagrams: 03/29/19 18:35 03/29/19 18:35 <Pietro Lu - Last Filed: 03/29/19 20:20> Departure <Lonny Peña - Last Filed: 03/29/19 19:38> - Departure Date of Disposition Decision: 03/29/19 Time of Disposition Decision: 20:19 Certified Medical Emergency: Emergent - Critical Care Note This patient required my direct & personal management of CC.: No <Pietro Lu - Last Filed: 03/29/19 20:20> - Departure DIAGNOSIS: Dyspnea, Respiratory failure with hypoxia, Cellulitis Disposition: ADMITTED INPATIENT 09 Condition: Stable Additional Instructions: ED Follow Up Instructions: You have been treated by a care provider in the Emergency Department. These instructions are being provided to you so you can have an understanding of how to care for yourself upon discharge. Upon discharge from the Emergency Department, you are responsible for making arrangements for follow-up care by a physician of your choice. Take all prescribed medications as directed. Return to the Emergency Department immediately for any new or worsening symptoms. You may call the Physician Referral phone number at [phone] to obtain a list of Physicians who are taking new patients. Referrals and Follow-Ups: Kayode Go [Primary Care Provider] - Attestation - Physician/ AIME Attestation Patient care was provided by Advanced Practice Provider:: No The physician spent face to face time with patient:: Yes Advanced Practice Provider documentation review:: Supervising physician onsite and consulted in the evaluation and care of this patient. The physician did have a face to face encounter with the patient. <Pietro Lu - Last Filed: 03/29/19 20:20> This chart was documented by the indicated scribe, (Candice Bradshaw, [place]lizz[place]) and accurately reflects the services I performed and decisions made by me, Lonny Peña MD, as attested by the provider's signature.
[2019-03-29 18:45] LABS: BE 8.2 mmoll (-3.0-3.0); BLOOD TYPE ARTERIAL; HCO3-(ACT) 31.1 mmoll (20.0-26.0); METHB 1.2 % (0.0-1.5); O2(CT) 13.4 mL/dL (15.0-23.0); PO2(98.6) 52 mmHg (60-100); SAMPLE BLOOD; SAO2 91.4 % (95.0-100.0); THB 10.8 g/dL (11.5-17.4); pH(98.6) 7.38 (7.35-7.45)
[2019-03-29 18:49] LABS: PCO2(98.6) 59 mmHg (35-45)
[2019-03-29 18:50] LABS: ALLEN TEST YES; MODALITY ROOM AIR; O2HB 88.1 % (95.0-99.0)
[2019-03-29 19:02] LABS: INR 0.83; PROTIME 11.8 Seconds (11.0-16.0)
[2019-03-29 19:03] LABS: BASO# 0.04 X1000 (0.0-0.2); BASO% 0.9 % (0.0-0.8); EOS# 0.08 X1000 (0.0-0.7); EOS% 1.8 % (0.0-10.0); HEMATOCRIT 40.7 % (37.0-47.0); HEMOGLOBIN 11.3 g/dL (12.0-16.0); IMM GRAN# 0.01 X1000 (0.0-0.04); IMM GRAN% 0.2 % (0.0-0.5); LYMPH# 1.04 X1000 (1.2-3.4); LYMPH% 22.9 % (20.5-51.1); MCH 23.6 PG (27-31); MCHC 27.8 g/dL (33-37); MCV 85.1 FL (81-99); MONO# 0.39 X1000 (0.11-0.59); MONO% 8.6 % (1.7-9.3); MPV 10.8 FL (7.4-10.4); NEUT# 2.99 X1000 (1.4-6.5); NEUT% 65.6 % (42.2-75.2); PLT 217 X1000 (130-400); RBC 4.78 XMIL (4.2-5.4); RDW 15.1 % (11.5-14.5); WBC 4.55 X1000 (4.8-10.8)
--- NOTE | 2019-03-29 19:11 | Diag Imaging Result Doc PS360 ---
EXAM: CHEST-1 VIEW - 03/29/2019 HISTORY: sob TECHNIQUE: Portable chest COMPARISON: 01/20/2019 FINDINGS: There is stable mild cardiomegaly. There is elevation of the left hemidiaphragm with mild left basilar atelectasis/scarring similar to prior. There is no acute consolidation, gross pulmonary edema, substantial pleural effusion, or pneumothorax identified. There are apparent chronic severe erosions of the bilateral humeral heads noted. IMPRESSION: Stable mild cardiomegaly. Stable elevation of left hemidiaphragm with left basilar atelectasis/scarring. Electronically signed by Ritchie Andrew 03/29/2019 7:09 PM
[2019-03-29 19:13] LABS: AGAP 14; ALBUMIN 4.4 g/dL (3.5-5.0); ALKALINE PHOSPHATASE 117 U/L (32-104); BUN 10 mg/dL (8-22); CALCIUM 9.3 mg/dL (8.8-10.2); CHLORIDE 101 mmol/L (98-107); CK PROFILE 36 U/L (24-173); COSMO 282; CREATININE 0.6 mg/dL (0.5-0.9); ESTIMATED GFR > 60; GLUCOSE 136 mg/dL (70-104); GOT 16 U/L (10-30); GPT 9 U/L (10-36); POTASSIUM 4.3 mmol/L (3.5-5.1); SODIUM 141 mmol/L (136-145); TCO2 27 mmol/L (25-35); TOTAL PROTEIN 7.1 g/dL (6.3-8.3)
--- NOTE | 2019-03-29 19:15 | EKG Report ---
Test Performed on : 03/29/2019 7:08:28 PM Test Reason : sob Blood Pressure : / mmHG Vent. Rate : 063 BPM Atrial Rate : 063 BPM P-R Int : 168 ms QRS Dur : 084 ms QT Int : 414 ms P-R-T Axes : 045 025 043 degrees QTc Int : 423 ms Normal sinus rhythm. Normal ECG When compared with ECG of 02-FEB-2019 16:02, (Unconfirmed) No significant change was found Unconfirmed Result
[2019-03-29 19:22] LABS: INFLUENZA A NEGATIVE (NEGATIVE); INFLUENZA B NEGATIVE (NEGATIVE)
[2019-03-29 19:25] LABS: PTT < 20.0 Seconds (22.3-41.8)
[2019-03-29 20:52] LABS: URINE SOURCE CATH
[2019-03-29 20:54] LABS: BILIRUBIN URINE NEGATIVE (NEGATIVE); BLOOD URINE TRACE (NEGATIVE); COLOR YELLOW; GLUCOSE URINE NEGATIVE (NEGATIVE); KETONE URINE NEGATIVE (NEGATIVE); LEUKOCYTES URINE NEGATIVE (NEGATIVE); NITRITE URINE POSITIVE (NEGATIVE); PROTEIN URINE NEGATIVE (NEGATIVE); UROBILINOGEN URINE NORMAL (NORMAL)
[2019-03-29 21:06] LABS: UR AMPHETAMINES QUAL NONE DETECTED (NONE DETECT); UR BARBITUATES QUAL NONE DETECTED (NONE DETECT); UR BENZODIAZEPIN QUAL NONE DETECTED (NONE DETECT); UR CANNABINOIDS QUAL NONE DETECTED (NONE DETECT); UR COCAINE QUAL NONE DETECTED (NONE DETECT); UR METHADONE QUAL NONE DETECTED (NONE DETECT); UR METHAMPHETAMINE QUAL NONE DETECTED (NONE DETECT); UR OPIATES QUAL NONE DETECTED (NONE DETECT); UR OXYCODONE QUAL PRESUMPTIVE POSITIVE (NONE DETECT); UR PCP QUAL NONE DETECTED (NONE DETECT); UR PROPOXYPHENE QUAL NONE DETECTED (NONE DETECT); UR TCA QUAL NONE DETECTED (NONE DETECT)
[2019-03-29 21:07] LABS: SP GRAVITY URINE 1.012; TURBIDITY URINE HAZY (CLEAR)
[2019-03-29 21:08] LABS: UR EPITHELIAL CELLS <10 /HPF (<10); URINE BACTERIA 4+ /HPF; URINE RBC <10 /HPF (<10); URINE WBC <10 /HPF (<10)
[2019-03-29] MEDS ORDERED: ROCEPHIN 1 GM in NS 50 ML IV SCH (22:30)
[2019-03-29] MEDS ORDERED: ROCEPHIN 1 GM in NS 50 ML IM SCH (23:25)
[2019-03-29] MEDS ORDERED: XYLOCAINE-MPF 1% INJ ONE (23:29)
[2019-03-29] MEDS ORDERED: ROCEPHIN IM SCH (23:30)
[2019-03-30] MEDS ORDERED: DUONEB (A & A) INH PRN (00:05)
[2019-03-30] MEDS: DUONEB (A & A) INH SCH ×2 (03:18→09:00)
[2019-03-30] MEDS ORDERED: DUONEB (A & A) INH SCH (04:00)
[2019-03-30] MEDS: OXY IR PO SCH ×2 (04:09→09:41)
[2019-03-30] MEDS ORDERED: SYNTHROID PO SCH ×3 (07:00)
[2019-03-30 07:29] VITALS: BP 187/77
[2019-03-30] MEDS ORDERED: CYTOTEC PO SCH (09:00)
[2019-03-30] MEDS ORDERED: MISOPROSTOL PO SCH (09:00)
[2019-03-30] MEDS ORDERED: LASIX PO SCH (09:00)
[2019-03-30] MEDS ORDERED: LYRICA PO SCH (09:00)
[2019-03-30] MEDS ORDERED: MYRBETRIQ E.R. PO SCH (09:00)
[2019-03-30] MEDS ORDERED: PAXIL PO SCH (09:00)
[2019-03-30] MEDS ORDERED: VOLTAREN PO SCH (09:00)
[2019-03-30] MEDS ORDERED: ZANAFLEX PO SCH (09:00)
[2019-03-30] MEDS ORDERED: DICLOFENAC PO SCH (09:00)
[2019-03-30 09:19] LABS: AGAP 9; BUN 10 mg/dL (8-22); CALCIUM 8.8 mg/dL (8.8-10.2); CHLORIDE 103 mmol/L (98-107); COSMO 285; CREATININE 0.5 mg/dL (0.5-0.9); ESTIMATED GFR > 60; GLUCOSE 150 mg/dL (70-104); POTASSIUM 4.3 mmol/L (3.5-5.1); SODIUM 142 mmol/L (136-145); TCO2 30 mmol/L (25-35)
[2019-03-30 09:31] LABS: HEMATOCRIT 36.7 % (37.0-47.0); IMM GRAN# 0.01 X1000 (0.0-0.04); IMM GRAN% 0.4 % (0.0-0.5); LYMPH# 0.36 X1000 (1.2-3.4); LYMPH% 13.6 % (20.5-51.1); MCHC 27.2 g/dL (33-37); MCV 84.4 FL (81-99); MONO# 0.03 X1000 (0.11-0.59); MONO% 1.1 % (1.7-9.3); MPV 10.3 FL (7.4-10.4); NEUT# 2.25 X1000 (1.4-6.5); NEUT% 84.9 % (42.2-75.2); PLT 197 X1000 (130-400); RBC 4.35 XMIL (4.2-5.4); RDW 14.6 % (11.5-14.5); WBC 2.65 X1000 (4.8-10.8)
--- NOTE | 2019-03-30 12:40 | HISTORY AND PHYSICAL ---
PRIMARY CARE PROVIDER: Kayode Go MD CHIEF COMPLAINT: Hurting all over, short of breath but I am going home. HISTORY OF PRESENT ILLNESS: Ms. Godinez is an 83-year-old female with a history of COPD and chronic pain, obstructive sleep apnea, Pickwickian syndrome, who presented to the ED with shortness of breath. She reports a productive cough with light green sputum positive for nausea yesterday. She has had some urinary frequency with a foul smell to her odor. She reports while she was out shopping yesterday she had an increase in her shortness of breath. However, the shortness of breath has been ongoing for a couple weeks. She reports she sent back her home O2, even though she regularly uses it at night. She felt that someone else could use it. She did try to call and get her home O2 back. However, she was unsuccessful and she decided to come to the ED to be evaluated. She was found to be in acute hypercarbic respiratory failure with some mild hypoxia and left lower extremity cellulitis. She was initiated on IM Rocephin as the patient is a hard stick and does not have any IV access. PAST MEDICAL HISTORY: As per HPI, chronic opiate use disorder, left breast cancer and right thigh cancer. PAST SURGICAL HISTORY: Appendectomy, left ankle surgery, back surgery, right AKA, bilateral mastectomy and hemorrhoidectomy. ALLERGIES: Suboxone. Stadol. Nubain. Dilaudid. Cipro. Morphine. Toradol. HOME MEDICATIONS: 1. DuoNeb 3 mL inhaled q.6 hours. 2. Klonopin 1 tab p.o. q.6 at bedtime. 3. Arthrotec 50 mg-200 mcg tablet 1 each p.o. b.i.d. 4. Lasix 20 mg p.o. daily. 5. Synthroid 125 mcg p.o. daily. 6. Myrbetriq 50 mg p.o. q.a.m. 7. Oxy IR 15 mg p.o. t.i.d. p.r.n. 8. Paxil 30 mg p.o. daily. 9. Lyrica 75 mg p.o. b.i.d. 10. Zanaflex 4 mg p.o. b.i.d. REVIEW OF SYSTEMS: Twelve-point review of systems completely negative except for those mentioned in HPI. PHYSICAL EXAMINATION: VITAL SIGNS: Temperature is 97.7 degrees heart rate 61, respirations 20, blood pressure 187/77, O2 is 94% on 2 L nasal cannula. GENERAL: Ms. Godinez is an 83-year-old female who is lying on the bed and in no acute distress. HEENT: Atraumatic, normocephalic. PERRL. NECK: Supple. Trachea midline. CARDIOVASCULAR: S1, S2 appreciated. No murmurs, gallops, rubs noted. RESPIRATORY: Lung sounds shallow. She has decrease in the bases. ABDOMEN: Soft, obese, nontender. Positive bowel sounds 4 quadrants. NEUROLOGIC: She is awake, alert, oriented. SKIN: Warm, dry, she has erythema and redness to the left lower extremity. I did not appreciate any open sores with some 2+ pitting edema. EXTREMITIES: Shows a right AKA. IMAGING: Chest x-ray, stable mild cardiomegaly, stable elevation of left hemidiaphragm with left basilar atelectasis and scarring. LABORATORY DATA: Initial white count was 4, hemoglobin and hematocrit 11 and 40, platelet count 217,000. ABG, pH 7.38, pCO2 59, PO2 52, bicarbonate 31, base excess is 8.2, oxyhemoglobin was 88, O2 saturation was 91 on room air. Sodium 141, potassium 4.3, BUN 10, creatinine 0.6, blood glucose was 136. Troponin less than 0.010. 2 plasma lactates were negative. She has 4+ bacteria in her urine, positive for nitrates, positive for oxycodone. Flu A and B negative. ASSESSMENT AND PLAN: 1. Acute hypercarbic respiratory failure. The patient has improved with supplemental O2. Mild hypoxemia as well. Again, improved with supplemental O2. 2. Urinary tract infection. The patient does complain of urinary frequency and foul smell, but no dysuria. Currently growing out gram-negative rods. 3. Chronic obstructive pulmonary disease does not appear to be in exacerbation. 4. Left lower extremity cellulitis. Continue intramuscular ceftriaxone. 5. Chronic pain syndrome. Continue home patient's home OxyIR. 6. Pickwickian syndrome, obstructive sleep apnea. She is not compliant with her home CPAP. 7. Further recommendation to follow physician evaluation, laboratory and diagnostic data. Dictated by SARAH Zamora for Otoniel Lopez MD cc: MD Kayode Nieves MD
--- NOTE | 2019-03-30 17:05 | DISCHARGE SUMMARY ---
ADMISSION DATE: 03/30/2019 DISCHARGE DATE: 03/30/2019 She was admitted just after midnight. She was here for shortness of breath. She is a very particular 83-year-old female with reported history of COPD. She was complaining of malodorous urine, shortness of breath. She had stopped her oxygen. She had sent it back because she "did not need it." She stopped using it for a month. I guess she did not feel short of breath, but we have no idea if she was actually hypoxic. She just kind of sent it back, and last night when she came in for evaluation, she was hypoxic, not really clear if that was a new diagnosis, and her saturations were only recorded at the lowest at 90% on room air. Her triage vitals was different. There was 95% on room air recorded. In any case she was placed in observation for COPD, hypercapnia. She had UTI, some lower extremity cellulitis. Following day, she was very motivated to go home. We encouraged her that she would need to qualify for oxygen. Her saturations were 86% on room air, and she did qualify for oxygen. She will be discharged home on current medication. She does have a UTI. 1. Klonopin 1 at bedtime. 2. Diclofenac misoprostol 1 p.o. b.i.d. 3. Lasix 20 daily. 4. Synthroid 125 daily. 5. Myrbetriq 50 daily. 6. Oxy IR 15 t.i.d. p.r.n. pain. 7. Paxil 30 daily. 8. DuoNeb q.6. 9. Levaquin 500 daily for 7 days. 10. Lyrica 75 b.i.d. 11. Zanaflex 4 b.i.d. She was set up with home oxygen. 32 minute discharge. cc: MD Kayode Nieves MD
[2019-03-30] MEDS ORDERED: KLONOPIN PO SCH (21:00)
== END 2019-03-30 13:55 | disposition home health service (06) | DRG 191 ==
LOC: P.ED 17:43 → P.MEDSURG 17:43
PROVIDERS: ATTEND Internal Medicine

== ENCOUNTER 2019-05-03 16:22 | Inpatient (IN) ==
[2019-05-03 17:01] LABS: BE 6.2 mmoll (-3.0-3.0); BLOOD TYPE ARTERIAL; HCO3-(ACT) 29.7 mmoll (20.0-26.0); METHB 1.3 % (0.0-1.5); O2(CT) 13.6 mL/dL (15.0-23.0); O2HB 91.9 % (95.0-99.0); PO2(98.6) 69 mmHg (60-100); SAMPLE BLOOD; SAO2 95.6 % (95.0-100.0); THB 10.5 g/dL (11.5-17.4); pH(98.6) 7.28 (7.35-7.45)
[2019-05-03 17:29] LABS: BASO# 0.01 X1000 (0.0-0.2); BASO% 0.2 % (0.0-0.8); EOS# 0.07 X1000 (0.0-0.7); EOS% 1.5 % (0.0-10.0); HEMATOCRIT 35.7 % (37.0-47.0); HEMOGLOBIN 9.6 g/dL (12.0-16.0); IMM GRAN# 0.01 X1000 (0.0-0.04); IMM GRAN% 0.2 % (0.0-0.5); LYMPH# 1.13 X1000 (1.2-3.4); MCHC 26.9 g/dL (33-37); MCV 85.6 FL (81-99); MONO# 0.43 X1000 (0.11-0.59); MONO% 9.1 % (1.7-9.3); MPV 10.9 FL (7.4-10.4); NEUT# 3.05 X1000 (1.4-6.5); PLT 184 X1000 (130-400); RBC 4.17 XMIL (4.2-5.4); RDW 14.7 % (11.5-14.5)
[2019-05-03 17:40] LABS: AGAP 11; ALBUMIN 3.9 g/dL (3.5-5.0); ALKALINE PHOSPHATASE 93 U/L (32-104); BUN 14 mg/dL (8-22); CALCIUM 8.5 mg/dL (8.8-10.2); CHLORIDE 101 mmol/L (98-107); CK PROFILE 25 U/L (24-173); COSMO 283; CREATININE 0.6 mg/dL (0.5-0.9); ESTIMATED GFR > 60; GLUCOSE 160 mg/dL (70-104); GOT 12 U/L (10-30); GPT 7 U/L (10-36); POTASSIUM 3.9 mmol/L (3.5-5.1); SODIUM 140 mmol/L (136-145); TCO2 29 mmol/L (25-35); TOTAL PROTEIN 6.5 g/dL (6.3-8.3)
[2019-05-03 17:42] LABS: INR 0.95; PROTIME 13.2 Seconds (11.0-16.0)
[2019-05-03 17:44] LABS: ALLEN TEST NO; MODALITY CANNULA; PCO2(98.6) 74 mmHg (35-45)
--- NOTE | 2019-05-03 17:51 | Diag Imaging Result Doc PS360 ---
EXAM: CHEST-PORTABLE 05/03/2019 HISTORY: sob TECHNIQUE: Erect AP portable at 1731 COMMENT: The inspiration is suboptimal. There is bibasilar platelike opacity which was also present on 03/29/2019. IMPRESSION: Cardiomegaly. Chronic atelectasis versus fibrosis. Electronically signed by Roger Negron 05/03/2019 5:48 PM
[2019-05-03] MEDS ORDERED: PULMICORT INH ONE (17:53)
[2019-05-03] MEDS ORDERED: DUONEB (A & A) INH ONE (17:53)
[2019-05-03] MEDS ORDERED: ALBUTEROL NEB INH ONE (17:53)
[2019-05-03] MEDS ORDERED: SOLU-MEDROL IV ONE (17:53)
--- NOTE | 2019-05-03 18:47 | PROVIDER DOCUMENTATION ---
This chart was entered by Michelle Maloney Scribe, acting as scribe for Jase Drake MD. HPI-Respiratory General - General Chief Complaint: Shortness of Breath Stated Complaint: SOB Time Seen by Provider: 05/03/19 16:45 Source: patient, family Allergies/Adverse Reactions: Patient Allergies Allergy/AdvReac Type Severity Reaction Status Date / Time buprenorphine HCl * Allergy Severe Unknown Verified 03/29/19 17:51 [From Buprenex] butorphanol tartrate * Allergy Severe Unknown Verified 03/29/19 17:51 [From Stadol] nalbuphine HCl * Allergy Severe Unknown Verified 03/29/19 17:51 [From Nubain] hydromorphone HCl * Allergy Intermediate HIVES Verified 03/29/19 17:51 [From Dilaudid] ciprofloxacin [From Cipro] Allergy Unknown Unknown Verified 03/29/19 17:51 ciprofloxacin HCl * Allergy Unknown Unknown Verified 03/29/19 17:51 [From Cipro] morphine Allergy Unknown Unknown Verified 03/29/19 17:51 buprenorphine [From Buprenex] Allergy Unknown Verified 03/29/19 17:51 butorphanol [From Stadol] Allergy Unknown Verified 03/29/19 17:51 hydromorphone [From Dilaudid] Allergy HIVES Verified 03/29/19 17:51 ketorolac [From Toradol] Allergy Unknown Verified 03/29/19 17:51 nalbuphine [From Nubain] Allergy Unknown Verified 03/29/19 17:51 ketorolac tromethamine * AdvReac Mild Unknown Verified 03/29/19 17:51 [From Toradol] Home Medications: Home Medication List Medication Instructions Recorded Confirmed Last Taken Type Tizanidine [Zanaflex] 4 mg PO BID tablet 02/05/17 05/03/19 03/28/19 20:00 Rx Diclofenac Sodium/Misoprostol 1 each PO BID 05/21/17 05/03/19 03/27/19 20:00 History [Arthrotec 50 mg-200 Mcg Tab] Furosemide [Lasix] 20 mg PO DAILY 07/05/17 05/03/19 03/27/19 08:00 History 20mg Mirabegron [Myrbetriq] 50 mg PO QAM 07/05/17 05/03/19 03/29/19 08:00 History Paroxetine [Paxil] 30 mg PO DAILY 11/19/17 05/03/19 03/29/19 08:00 History Pregabalin [Lyrica] 75 mg PO BID #60 cap 01/01/18 05/03/19 03/29/19 08:00 Rx Albuterol 2.5MG/Ipratrop 0.5MG 3 ml INH Q6H #120 neb 05/26/18 05/03/19 03/16/19 10:00 Rx [Duoneb (A & A)] Clonazepam [Klonopin] 1 tab PO QHS 01/20/19 05/03/19 03/28/19 20:00 History Levothyroxine Sodium 125 mcg PO DAILY@0700 03/30/19 05/03/19 Unknown History Oxycodone I.r. [Oxy Ir] 15 mg PO TID PRN 03/30/19 05/03/19 Unknown History - History of Present Illness-Resp Nature of Presenting Problem: Pt is a 83 yof who presents to the ED with a cc of SOB. Pt states that she was seen at urgent care and told to come to ED. Pt reports fever, cough w/ occ phlegm. Pt denies any chest pain nausea or vomiting and does present to the ED with any other complaints. Quality of Pain: reports: none Onset/Duration: reports: 2 days ago Timing: reports: still present Exposure: reports: unknown cause Cough Quality/Degree: reports: mild (w/ occ phlegm) Current Respiratory Medication Therapy: Initiated see nurses note Modifying Factors: improves with: nothing Associated Symptoms: reports: cough, fever/chills, shortness of breath, wheezing Similar Symptoms Previously?: Yes Recently seen or treated by another doctor?: Yes Review of Systems - Adult - REVIEW OF SYSTEMS - ADULT Constitutional: reports: see HPI, fever Eyes: reports: no symptoms reported Ears, Nose, Mouth & Throat: reports: no symptoms reported Cardiovascular: reports: no symptoms reported Respiratory: reports: see HPI, chronic cough, shortness of breath, wheezing Gastrointestinal: reports: no symptoms reported Genitourinary: reports: no symptoms reported Musculoskeletal: reports: no symptoms reported Integumentary: reports: no symptoms reported Neurological: reports: no symptoms reported Psychiatric: reports: no symptoms reported Endocrine: reports: no symptoms reported Hematologic/Lymphatic: reports: no symptoms reported Allergic/Immunologic: reports: no symptoms reported All Other Systems: Reviewed and Negative Past History - Adult - PAST MEDICAL HISTORY-ADULT Review of Records: reports: Old Records Reviewed 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), chronic pain Neurological: reports: denies history Psychiatric: reports: anxiety Endocrine/Immune: reports: thyroid disorder Other Conditions: reports: MRSA - PRIOR SURGERIES/PROCEDURES Surgical/Procedure History: reports: cholecystectomy, hysterectomy, orthopedic (extremity) (R AKA, L foot, R shoulder), joint replacement (TKR), breast (mastectomy) - IMMUNIZATION STATUS Childhood Immunizations: See Nurse Assessment Flu Vaccine: See Nurse Assessment - FAMILY HISTORY Family History: reviewed, not pertinent - SOCIAL HISTORY Smoking: non-smoker Substance Use: denies Living Situation: family Physical Exam-General - CONSTITUTIONAL General Appearance: alert, no apparent distress - EYES Eyes: PERRL/EOMI, pink conjunctivae - HEAD, EARS, NOSE, MOUTH & THROAT HENMT: normocephalic/atraumatic, moist mucous membranes - NECK Neck: non-tender, full range of motion, normal inspection - RESPIRATORY Respiratory: chest non-tender, crackles (bilateral), wheezing (mild, diffused inspiratory and expiratory), other (decreased air flow). negative: normal breath sounds - CARDIOVASCULAR Cardiovascular: normal peripheral pulses, regular rate, rhythm, no edema, no gallop, no JVD, no murmur. negative: bradycardia, tachycardia - MUSCULOSKELETAL Back Exam: normal inspection, no CVA tenderness, no vertebral tenderness Extremity: other (R leg amputee). negative: normal inspection - SKIN Integumentary: normal color, normal turgor, warm/dry - PSYCHIATRIC Psych/Mental Status: normal mood/affect, normal thought content, normal thought process, oriented x 3 Progress - PLAN OF CARE/RESULTS Progress/Plan/Lab Results: Vital Signs - 8 hr 05/03/19 16:28 05/03/19 18:20 Temperature 99 F Pulse Rate 86 67 Respiratory Rate 20 22 Blood Pressure 165/74 O2 Sat by Pulse Oximetry 91 L 95 Laboratory Results - last 24 hr 05/03/19 05/03/19 05/03/19 16:49 17:10 17:10 WBC 4.70 L RBC 4.17 L Hgb 9.6 L Hct 35.7 L MCV 85.6 MCH 23.0 L MCHC 26.9 L RDW Std Deviation 14.7 H Plt Count 184 MPV 10.9 H Immature Gran % (Auto) 0.2 Neut % (Auto) 65.0 Lymph % (Auto) 24.0 [place] % (Auto) 9.1 Eos % (Auto) 1.5 Baso % (Auto) 0.2 Immature Gran # (Auto) 0.01 Neut # (Auto) 3.05 Lymph # (Auto) 1.13 L [place] # (Auto) 0.43 Eos # (Auto) 0.07 Baso # (Auto) 0.01 PT INR PTT (Actin FS) Specimen Type ARTERIAL Sample Site R BRACHIAL pH 7.28 L pCO2 74 H* pO2 69 HCO3 29.7 H Base Excess 6.2 H Oxyhemoglobin 91.9 L ABG O2 Sat (Calculated) 13.6 L ABG O2 Saturation 95.6 ABG Carboxyhemoglobin 2.60 H ABG Methemoglobin 1.3 Robert Test NO A-a O2 Difference 38.0 Total Hemoglobin 10.5 L Lactate 1.30 Liter Flow 2.0 Blood Gas Modality CANNULA FiO2 % 28.0 Sodium 140 Potassium 3.9 Chloride 101 Carbon Dioxide 29 Anion Gap 11 BUN 14 Creatinine 0.6 Estimated GFR/1.73 m2 > 60 BUN/Creatinine Ratio 23 Glucose 160 H Calculated Osmolality 283 Calcium 8.5 L Total Bilirubin 0.30 AST 12 ALT 7 L Alkaline Phosphatase 93 Creatine Kinase 25 Troponin T High Sens [id number] Pept Total Protein 6.5 Albumin 3.9 Globulin 3.0 Albumin/Globulin Ratio 2.0 05/03/19 05/03/19 05/03/19 17:10 17:10 17:10 WBC RBC Hgb Hct MCV MCH MCHC RDW Std Deviation Plt Count MPV Immature Gran % (Auto) Neut % (Auto) Lymph % (Auto) [place] % (Auto) Eos % (Auto) Baso % (Auto) Immature Gran # (Auto) Neut # (Auto) Lymph # (Auto) [place] # (Auto) Eos # (Auto) Baso # (Auto) PT 13.2 INR 0.95 PTT (Actin FS) 28.0 Specimen Type Sample Site pH pCO2 pO2 HCO3 Base Excess Oxyhemoglobin ABG O2 Sat (Calculated) ABG O2 Saturation ABG Carboxyhemoglobin ABG Methemoglobin Robert Test A-a O2 Difference Total Hemoglobin Lactate Liter Flow Blood Gas Modality FiO2 % Sodium Potassium Chloride Carbon Dioxide Anion Gap BUN Creatinine Estimated GFR/1.73 m2 BUN/Creatinine Ratio Glucose Calculated Osmolality Calcium Total Bilirubin AST ALT Alkaline Phosphatase Creatine Kinase Troponin T High Sens 12 [id number]-[id number] Pept 249 Total Protein Albumin Globulin Albumin/Globulin Ratio Orders Category Date Time Status Cardiac Monitoring DIRECTED Care 05/03/19 16:31 Active Murray Cath Insertion ORDERED Care 05/03/19 18:15 Active Oxygen Therapy- ED Nursing DIRECTED Care 05/03/19 16:31 Active Saline Loc NOW Care 05/03/19 16:31 Active CHEST-PORTABLE [RAD] Stat Exams 05/03/19 16:31 Completed ABG [RESP] Routine Lab 05/03/19 16:49 Completed CBC WITH ELECTRONIC DIFF [HEME] Stat Lab 05/03/19 17:10 Results CK PROFILE [SP CHEM] Stat Lab 05/03/19 17:10 Completed COMPREHENSIVE METABOLIC PANEL [CHEM] Stat Lab 05/03/19 17:10 Completed PRO B-NATRIURETIC PEPTIDE Stat Lab 05/03/19 17:10 Completed PROTIME WITH INR [COAG] Stat Lab 05/03/19 17:10 Completed PTT [COAG] Stat Lab 05/03/19 17:10 Completed TROPONIN T HIGH SENSITIVITY Stat Lab 05/03/19 17:10 Completed Albuterol 2.5MG/Ipratrop 0.5MG [Duoneb (A & A)] Med 05/03/19 17:53 Di scontinued 3 ml INH NOW ONE Albuterol [Albuterol Neb] Med 05/03/19 17:53 Discontinued 5 mg INH NOW ONE Budesonide [Pulmicort] Med 05/03/19 17:53 Discontinued 0.5 mg INH NOW ONE Methylprednisolone Sod Succ [Solu-Medrol] Med 05/03/19 17:53 Discontinued 125 mg IV NOW ONE Aerosol Treatments Routine Oth 05/03/19 17:53 Active Aerosol Treatments Stat Oth 05/03/19 17:53 Active BIPAP Stat Oth 05/03/19 17:53 Active CP/SOB/Palp >45 yrs of Age Stat Oth 05/03/19 16:31 Ordered EKG [EKG] Stat Ther 05/03/19 16:31 Ordered Result Diagrams: 05/03/19 17:10 05/03/19 17:10 - CONSULTS/PCP/HOSPITALIST Notification #1 *Consult/PCP/Hospitalist*: Terrance Time Discussed: 17:55 Consult Disposition: Will see in ED, Admit Departure - Departure Date of Disposition Decision: 05/03/19 Time of Disposition Decision: 18:01 DIAGNOSIS: Respiratory insufficiency, Hypercarbia Anemia Qualifiers: Anemia type: unspecified type Qualified Code(s): D64.9 - Anemia, unspecified Disposition: ADMITTED INPATIENT 09 Certified Medical Emergency: Emergent Condition: Good Referrals and Follow-Ups: Kayode Go [Primary Care Provider] - - Critical Care Note This patient required my direct & personal management of CC.: No Attestation - Physician/ AIME Attestation Patient care was provided by Advanced Practice Provider:: No The physician spent face to face time with patient:: Yes Advanced Practice Provider documentation review:: Supervising physician onsite and consulted in the evaluation and care of this patient. The physician did have a face to face encounter with the patient. This chart was documented by the indicated scribe, (Michelle Maloney Scribe) and accurately reflects the services I performed and decisions made by me, Jase Drake MD, as attested by the provider's signature.
[2019-05-03] MEDS ORDERED: TYLENOL PO PRN (19:05)
[2019-05-03] MEDS ORDERED: DUONEB (A & A) INH PRN (19:05)
[2019-05-03] MEDS ORDERED: ZOFRAN IV PRN (19:05)
[2019-05-03] MEDS: SOLU-MEDROL IV SCH (19:15)
[2019-05-03] MEDS: LASIX IV SCH (19:20)
[2019-05-03] MEDS: DUONEB (A & A) INH SCH ×2 (19:52→23:05)
[2019-05-03] MEDS ORDERED: CALMOSEPTINE OINTMENT TOP PRN (22:15)
[2019-05-03] MEDS: OXY IR PO PRN (22:52)
[2019-05-03] MEDS: KLONOPIN PO SCH (22:53)
[2019-05-03] MEDS: ZANAFLEX PO SCH (22:53)
[2019-05-03] MEDS: LYRICA PO SCH (22:53)
[2019-05-04] MEDS: SOLU-MEDROL IV SCH ×3 (02:37→20:53)
[2019-05-04] MEDS: DUONEB (A & A) INH SCH ×6 (03:18→23:01)
[2019-05-04 03:38] LABS: URINE SOURCE CATH
[2019-05-04 03:42] LABS: BILIRUBIN URINE NEGATIVE (NEGATIVE); BLOOD URINE SMALL (NEGATIVE); COLOR YELLOW; GLUCOSE URINE TRACE mg/dL (NEGATIVE); KETONE URINE NEGATIVE (NEGATIVE); LEUKOCYTES URINE NEGATIVE (NEGATIVE); NITRITE URINE NEGATIVE (NEGATIVE); PROTEIN URINE TRACE mg/dL (NEGATIVE); SP GRAVITY URINE 1.019; TURBIDITY URINE CLEAR (CLEAR); UROBILINOGEN URINE NORMAL (NORMAL)
[2019-05-04 03:43] LABS: UR EPITHELIAL CELLS <10 /HPF (<10); URINE BACTERIA NEGATIVE /HPF; URINE RBC <10 /HPF (<10); URINE WBC <10 /HPF (<10)
[2019-05-04] MEDS: LASIX IV SCH ×2 (06:26→20:53)
[2019-05-04] MEDS: SYNTHROID PO SCH ×2 (06:27)
[2019-05-04 07:04] LABS: HEMATOCRIT 35.9 % (37.0-47.0); HEMOGLOBIN 9.8 g/dL (12.0-16.0); MCH 23.1 PG (27-31); MCHC 27.3 g/dL (33-37); MCV 84.7 FL (81-99); MPV 10.4 FL (7.4-10.4); RBC 4.24 XMIL (4.2-5.4); RDW 14.5 % (11.5-14.5); WBC 4.36 X1000 (4.8-10.8)
[2019-05-04 09:03] LABS: AGAP 11; ALBUMIN 3.7 g/dL (3.5-5.0); ALKALINE PHOSPHATASE 87 U/L (32-104); BUN 14 mg/dL (8-22); CHLORIDE 99 mmol/L (98-107); COSMO 288; CREATININE 0.5 mg/dL (0.5-0.9); ESTIMATED GFR > 60; GLUCOSE 208 mg/dL (70-104); GOT 10 U/L (10-30); GPT 7 U/L (10-36); POTASSIUM 3.9 mmol/L (3.5-5.1); SODIUM 141 mmol/L (136-145); TCO2 31 mmol/L (25-35); TOTAL PROTEIN 6.6 g/dL (6.3-8.3)
[2019-05-04] MEDS: PAXIL PO SCH (09:54)
[2019-05-04] MEDS: MYRBETRIQ E.R. PO SCH (09:54)
[2019-05-04] MEDS: ZANAFLEX PO SCH ×2 (09:54→20:52)
[2019-05-04] MEDS: LYRICA PO SCH ×2 (09:54→20:52)
[2019-05-04] MEDS: OXY IR PO PRN ×2 (11:41→18:52)
--- NOTE | 2019-05-04 18:52 | PROGRESS NOTE ---
DATE: 05/04/2019 SUBJECTIVE: The patient notes that she is feeling better. Denies any coughing. States her shortness of breath is improved. She refused to wear BiPAP last night. Thankfully, she has been able to improve without it. PHYSICAL EXAMINATION: Temperature 98 degrees, pulse 72, BP 144/58.General: The patient is an obese female who is lying in the bed, sitting up but almost in a position with her head tucked over. HEENT: Normocephalic. Neck supple. CV: No murmurs. Chest greatly decreased but improved from yesterday. Wheezing also improved. Abdomen is soft, obese. Extremities: She does move all extremities with no focal weakness. She has a right AKA. ASSESSMENT: 1. Acute hypercapnic respiratory failure, appears improved. 2. Chronic obstructive pulmonary disease with exacerbation. 3. Congestive heart failure. 4. Hypertension. 5. Morbid obesity. 6. Hypothyroidism. PLAN: We are going to continue the patient in the hospital. Follow her oxygen. Follow her breathing with nebulized treatments and will follow. cc: Conor Carlos MD
--- NOTE | 2019-05-04 19:53 | HISTORY AND PHYSICAL ---
CHIEF COMPLAINT: Shortness of breath and swelling. HISTORY OF PRESENT ILLNESS: Patient is an 83-year-old female who presented to the ER with increased work of breathing and shortness of breath. She was actually seen at an urgent care recently and was told to come to the ER. She has had a fever, cough, and increased phlegm. She denies any true chest pains or vomiting. Denies true fevers, but has not felt well and has felt warm. ALLERGIES: Buprenorphine, Stadol, Dilaudid, Cipro, morphine, Ketoralac, Nubain. MEDICATIONS: Zanaflex, Lasix 10, Myrbetriq 50, Paxil, Lyrica 75 twice daily, DuoNeb, Klonopin, Levaquin recently in March, Synthroid 125 daily, and oxycodone 15 t.i.d. REVIEW OF SYSTEMS: As noted above. Patient notes that she has had increased work of breathing, cough, congestion, increased shortness of breath, increased swelling in her lower extremities. Denies any fevers or chills. Denies constipation, melena, hematochezia. Denies any dysuria, frequency, urgency, hesitancy. Denies constipation. PAST MEDICAL HISTORY: Significant for chronic pain. 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 SURGICAL HISTORY: She has had a cholecystectomy, hysterectomy, right AKA, left foot surgery, right shoulder surgery. She has had mastectomy. FAMILY HISTORY: Noncontributory. SOCIAL HISTORY: Patient does not smoke or drink. Denies illicit substances. PHYSICAL EXAMINATION: VITAL SIGNS: Reviewed. Temperature 99 degrees, pulse 86, respiratory 20, BP 165/74. GENERAL: Patient is awake and alert. She is in moderate respiratory distress. HEENT: Normocephalic. NECK: Supple. CARDIOVASCULAR: Regular rate. No current murmurs. CHEST: Greatly decreased breath sounds bilaterally, moderately reduced. She has inspiratory and expiratory wheezing. ABDOMEN: Soft, obese, nondistended. EXTREMITIES: She has no edema in her left lower extremity. NEUROLOGIC: She is awake and alert. ASSESSMENT: 1. Acute hypercapnic respiratory failure with a pCO2 of 74. 2. Diabetes with hyperglycemia. 3. Hypertension. 4. Congestive heart failure. 5. Chronic anxiety. 6. Chronic pain. PLAN: We are going to admit patient to the hospital. Antibiotics, breathing treatments, oxygen, and will follow. Currently, she is on BiPAP. Hopefully, this can be weaned. cc: Conor Carlos MD
[2019-05-04] MEDS: KLONOPIN PO SCH (20:52)
[2019-05-05] MEDS: OXY IR PO PRN ×3 (00:01→18:20)
[2019-05-05] MEDS: DUONEB (A & A) INH SCH ×5 (03:06→20:00)
[2019-05-05] MEDS: SOLU-MEDROL IV SCH ×3 (03:59→21:34)
[2019-05-05] MEDS: SYNTHROID PO SCH ×2 (06:39)
[2019-05-05] MEDS: PAXIL PO SCH (10:09)
[2019-05-05] MEDS: MYRBETRIQ E.R. PO SCH (10:09)
[2019-05-05] MEDS: ZANAFLEX PO SCH ×2 (10:10→21:34)
[2019-05-05] MEDS: LYRICA PO SCH ×2 (10:10→21:34)
--- NOTE | 2019-05-05 20:02 | PROGRESS NOTE ---
DATE: 05/04/2019 SUBJECTIVE: Patient has no new complaints. States that she would like to increase her pain medicine. States she is still hurting all over. In fact, she is asking for IV Demerol. OBJECTIVE: Vital signs: Temperature 97.8, pulse 72, respiratory rate 18, BP 102/43. General: Patient is awake, alert. She is in minimal respiratory distress. HEENT: Normocephalic. Neck: Supple. Cardiovascular: Regular rate. Chest: Still having some wheezing bilaterally. Decreased breath sounds bilaterally. Denies any fevers or chills currently. Abdomen: Soft, nondistended, obese. Extremities: Moves all extremities. ASSESSMENT: 1. Hypercapnic acute respiratory failure with elevated pCO2. 2. Diabetes with hyperglycemia. 3. Chronic pain. 4. Chronic anxiety. 5. Congestive heart failure. PLAN: We are going to decrease her Solu-Medrol. Discussed with the patient that we are not going to give her IV Demerol as she already has trouble breathing. We certainly would not want to increase that. cc: Conor Carlos MD
[2019-05-05] MEDS: KLONOPIN PO SCH (21:34)
[2019-05-06] MEDS: DUONEB (A & A) INH SCH ×7 (00:17→22:37)
[2019-05-06] MEDS: OXY IR PO PRN ×4 (01:16→22:55)
[2019-05-06] MEDS: SYNTHROID PO SCH ×2 (07:31)
[2019-05-06] MEDS: SOLU-MEDROL IV SCH ×2 (07:33→21:06)
[2019-05-06] MEDS: LYRICA PO SCH ×2 (09:16→21:06)
[2019-05-06] MEDS: PAXIL PO SCH (09:16)
[2019-05-06] MEDS: MYRBETRIQ E.R. PO SCH (09:17)
[2019-05-06] MEDS: ZANAFLEX PO SCH ×2 (09:17→21:06)
--- NOTE | 2019-05-06 19:30 | PROGRESS NOTE ---
DATE: 05/06/2019 SUBJECTIVE: Patient notes that she does not feel well today. She states she feels off and notes that the TV on the wall is 2 feet to the right and crooked. She states that her neck and back hurts and thinks that Demerol would help his pain. OBJECTIVE: Vital signs: Temperature 97.6, pulse 83, respiratory rate 20, BP 127/55. General: Patient is an overweight female who currently is in minimal respiratory distress and actually appears pretty close to her baseline. HEENT: Normocephalic. Neck: Supple. Cardiovascular: Regular rate. Chest: Minimal wheezing, better air movement. Abdomen: Soft, nondistended. Extremities: Moves all extremities. ASSESSMENT: 1. Acute hypercapnic respiratory failure, improved. We are going to continue to wean Solu- Medrol, currently down to 40 IV q.12. 2. Vertigo. 3. Diabetes with hyperglycemia. 4. Hypertension. 5. Congestive heart failure. 6. Chronic anxiety. 7. Chronic pain. PLAN: Discussed with patient that we cannot use Demerol as she currently is already on Oxy IR 15 t.i.d., and she has recently had respiratory failure. We will attempt to get an MRI of her brain to see what is the cause of her vision distortion. cc: Conor Carlos MD
[2019-05-06] MEDS: KLONOPIN PO SCH (21:06)
[2019-05-07] MEDS: DUONEB (A & A) INH SCH ×3 (02:57→11:19)
[2019-05-07 05:18] VITALS: BP 142/57
[2019-05-07] MEDS: SYNTHROID PO SCH ×2 (06:31)
[2019-05-07] MEDS: MYRBETRIQ E.R. PO SCH (08:28)
[2019-05-07] MEDS: SOLU-MEDROL IV SCH (08:29)
[2019-05-07] MEDS: OXY IR PO PRN (08:29)
[2019-05-07] MEDS: PAXIL PO SCH (08:29)
[2019-05-07] MEDS: LYRICA PO SCH (08:30)
[2019-05-07] MEDS: ZANAFLEX PO SCH (08:30)
--- NOTE | 2019-05-07 20:26 | DISCHARGE SUMMARY ---
ADMISSION DATE: 05/03/2019 DISCHARGE DATE: 05/07/2019 PRIMARY CARE PHYSICIAN: Dr. Kayode Go. ADMISSION DIAGNOSES: 1. An acute hypercapnic respiratory failure. 2. Diabetes with hyperglycemia. 3. Hypertension. 4. CHF. 5. Chronic anxiety. 6. Chronic pain. DISCHARGE DIAGNOSES: 1. Acute hypercapnic respiratory failure, improved. 2. Vertigo. 3. Diabetes with hyperglycemia. 4. Hypertension. 5. CHF. 6. Chronic anxiety. 7. Chronic pain. SUMMARY OF FINDINGS: This is an 83-year-old female who was sent from an urgent care center with increased work of breathing, shortness of breath, fever, cough, increased phlegm, admitted, placed on BiPAP initially and weaned, continued on antibiotics, breathing treatments, O2 has improved. Complained of having some vertigo and dizziness, wanted Demerol but explained that we could not use Demerol as she is already on Oxy IR 15 t.i.d. and had a respiratory failure and it is now felt that she can safely be discharged home. DISCHARGE MEDICATIONS: Will include DuoNeb q. 4 hours p.r.n., Klonopin 1 mg p.o. at bedtime, levothyroxine 125 mcg p.o. daily, Myrbetriq 50 mg p.o. q.a.m., oxycodone IR 15 mg p.o. t.i.d. p.r.n., paroxetine 30 mg p.o. daily, Pregabalin 75 mg p.o. b.i.d., Zanaflex 4 mg p.o. b.i.d., DuoNeb q. 6 hours, Arthrotec 1 p.o. b.i.d., Lasix 20 mg p.o. daily. FOLLOWUP: She will follow up with home health and with her primary care physician. TIME SPENT: 35 minutes. Dictated by SARAH Salmeron for Conor Carlos MD cc: SARAH Salmeron MD
--- NOTE | 2019-05-08 03:58 | DISCHARGE SUMMARY ---
ADMISSION DATE: 05/03/2019 DISCHARGE DATE: 05/07/2019 SUBJECTIVE: The patient notes that her disequilibrium yesterday has resolved. She is feeling better. In fact, feeling back to her usual self. Her breathing has improved. She was admitted secondary to hypercapnic respiratory failure with a pCO2 of 74 and on BiPAP. She currently has improved. We have weaned her off steroids and therefore she will be discharged home. cc: Conor Carlos MD
== END 2019-05-07 13:31 | disposition home health service (06) | DRG 190 ==
LOC: P.ED 16:22 → P.MEDSURG 16:23
PROVIDERS: ATTEND Family Medicine

== ENCOUNTER 2019-05-27 15:04 | Inpatient (IN) ==
--- NOTE | 2019-05-27 15:23 | PROVIDER DOCUMENTATION ---
HPI-Respiratory General - General Chief Complaint: Cough Stated Complaint: EXTREMITY PAIN Time Seen by Provider: 05/27/19 15:12 Source: patient Allergies/Adverse Reactions: Patient Allergies Allergy/AdvReac Type Severity Reaction Status Date / Time buprenorphine HCl * Allergy Severe Unknown Verified 03/29/19 17:51 [From Buprenex] butorphanol tartrate * Allergy Severe Unknown Verified 03/29/19 17:51 [From Stadol] nalbuphine HCl * Allergy Severe Unknown Verified 03/29/19 17:51 [From Nubain] hydromorphone HCl * Allergy Intermediate HIVES Verified 03/29/19 17:51 [From Dilaudid] ciprofloxacin [From Cipro] Allergy Unknown Unknown Verified 03/29/19 17:51 ciprofloxacin HCl * Allergy Unknown Unknown Verified 03/29/19 17:51 [From Cipro] morphine Allergy Unknown Unknown Verified 03/29/19 17:51 buprenorphine [From Buprenex] Allergy Unknown Verified 03/29/19 17:51 butorphanol [From Stadol] Allergy Unknown Verified 03/29/19 17:51 hydromorphone [From Dilaudid] Allergy HIVES Verified 03/29/19 17:51 ketorolac [From Toradol] Allergy Unknown Verified 03/29/19 17:51 nalbuphine [From Nubain] Allergy Unknown Verified 03/29/19 17:51 ketorolac tromethamine * AdvReac Mild Unknown Verified 03/29/19 17:51 [From Toradol] Home Medications: Home Medication List Medication Instructions Recorded Confirmed Last Taken Type Tizanidine [Zanaflex] 4 mg PO BID tablet 02/05/17 05/03/19 03/28/19 20:00 Rx Diclofenac Sodium/Misoprostol 1 each PO BID 05/21/17 05/03/19 03/27/19 20:00 History [Arthrotec 50 mg-200 Mcg Tab] Furosemide [Lasix] 20 mg PO DAILY 07/05/17 05/03/19 03/27/19 08:00 History 20 mg Mirabegron [Myrbetriq] 50 mg PO QAM 07/05/17 05/03/19 03/29/19 08:00 History Paroxetine [Paxil] 30 mg PO DAILY 11/19/17 05/03/19 03/29/19 08:00 History Pregabalin [Lyrica] 75 mg PO BID #60 cap 01/01/18 05/03/19 03/29/19 08:00 Rx Albuterol 2.5MG/Ipratrop 0.5MG 3 ml INH Q6H #120 neb 05/26/18 05/03/19 03/16/19 10:00 Rx [Duoneb (A & A)] Clonazepam [Klonopin] 1 tab PO QHS 01/20/19 05/03/19 03/28/19 20:00 History Levothyroxine Sodium 125 mcg PO DAILY@0700 03/30/19 05/03/19 Unknown History Oxycodone I.r. [Oxy Ir] 15 mg PO TID PRN 03/30/19 05/03/19 Unknown History Albuterol 2.5MG/Ipratrop 0.5MG 3 ml INH Q4H PRN PRN #180 neb 05/07/19 Unknown Rx [Duoneb (A & A)] Methylprednisolone [Medrol Dosepak] 4 mg PO DIRECTED #1 pkg 05/07/19 Unknown Rx - History of Present Illness-Resp Nature of Presenting Problem: 83 yr old F, hx of HF, HTN, presenting with a one day hx of productive cough,, reports of congestion that began yesterday; the pt denies any chest pain; she does use oxygen at home, mostly at night, but did feel that she was working harder to breathe. the Pt and her also both report a small wound on her left great toe that has been slow to heal over the past week; the has been using Neosporin, and now the the toe itself is puffy and mildly red in comparison to the other toes. Review of Systems - Adult - REVIEW OF SYSTEMS - ADULT Constitutional: reports: no symptoms reported Eyes: reports: no symptoms reported Ears, Nose, Mouth & Throat: reports: no symptoms reported Cardiovascular: reports: no symptoms reported Respiratory: reports: see HPI, cough, wheezing Gastrointestinal: reports: no symptoms reported Musculoskeletal: reports: no symptoms reported Integumentary: reports: see HPI Psychiatric: reports: no symptoms reported Past History - Adult - PAST MEDICAL HISTORY-ADULT Review of Records: reports: Old Records Reviewed Major Childhood Illnesses: reports: denies history Cardiovascular: reports: CHF, HTN Respiratory: reports: pneumonia Gastrointestinal: reports: GERD Obstetrical/Gynecological: reports: other (breast cancer) Musculoskeletal: reports: cancer (sarcoma right leg), chronic pain Neurological: reports: denies history Psychiatric: reports: anxiety Endocrine/Immune: reports: thyroid disorder Other Conditions: reports: MRSA - PRIOR SURGERIES/PROCEDURES Surgical/Procedure History: reports: cholecystectomy, hysterectomy, orthopedic (extremity) (R AKA, L foot, R shoulder), joint replacement (TKR), breast (mastectomy) - IMMUNIZATION STATUS Childhood Immunizations: See Nurse Assessment Flu Vaccine: See Nurse Assessment - FAMILY HISTORY Family History: reviewed, not pertinent - SOCIAL HISTORY Living Situation: family Physical Exam-General - PHYSICAL EXAM-ADULT Initial Vital Signs Reviewed: Yes - CONSTITUTIONAL General Appearance: alert, no apparent distress - EYES Eyes: PERRL/EOMI - HEAD, EARS, NOSE, MOUTH & THROAT HENMT: normocephalic/atraumatic, moist mucous membranes - RESPIRATORY Respiratory: chest non-tender, no accessory muscle use, rales, wheezing - CARDIOVASCULAR Cardiovascular: regular rate, rhythm - GASTROINTESTINAL (ABDOMEN) Abdominal Exam: normal bowel sounds, non tender, soft - MUSCULOSKELETAL Back Exam: lordosis Extremity: other (right lower ext - BKA; left lower extremity; chronic skin changes; erythematous; shallow ulcer at the base of the left great toe) - SKIN Integumentary: warm/dry, erythema (left lower ext; pt apparently just started doxycycline for cellulitis ~2 days ago) - PSYCHIATRIC Psych/Mental Status: normal mood/affect, oriented x 3 Progress - PLAN OF CARE/RESULTS Progress/Plan/Lab Results: Vital Signs - 8 hr 05/27/19 15:07 05/27/19 16:02 Temperature 99.2 F Pulse Rate 89 80 Respiratory Rate 18 20 Blood Pressure 146/76 O2 Sat by Pulse Oximetry 82 L 99 Laboratory Results - last 24 hr 05/27/19 05/27/19 05/27/19 15:54 16:02 16:02 WBC RBC Hgb Hct MCV MCH MCHC RDW Std Deviation Plt Count MPV Immature Gran % (Auto) Neut % (Auto) Lymph % (Auto) Weakley % (Auto) Eos % (Auto) Baso % (Auto) Immature Gran # (Auto) Neut # (Auto) Lymph # (Auto) Weakley # (Auto) Eos # (Auto) Baso # (Auto) D-Dimer, Quantitative 0.77 H Specimen Type ARTERIAL Sample Site R RADIAL pH 7.30 L pCO2 71 H* pO2 128 H HCO3 30.1 H Base Excess 6.7 H Oxyhemoglobin 95.8 ABG O2 Sat (Calculated) 14.4 L ABG O2 Saturation 99.2 ABG Carboxyhemoglobin 2.30 ABG Methemoglobin 1.1 Robert Test YES A-a O2 Difference -17.0 Total Hemoglobin 10.5 L Lactate 0.60 Liter Flow 2.0 Blood Gas Modality CANNULA FiO2 % 28.0 Sodium 137 Potassium 4.1 Chloride 99 Carbon Dioxide 30 Anion Gap 8 BUN 6 L Creatinine 0.5 Estimated GFR/1.73 m2 > 60 BUN/Creatinine Ratio 12 Glucose 123 H Calculated Osmolality 273 Calcium 8.9 Total Bilirubin 0.30 AST 11 ALT 6 L Alkaline Phosphatase 94 Qyi-F-Irlcgdfrkes Pept Total Protein 6.6 Albumin 3.7 Globulin 3.0 Albumin/Globulin Ratio 1.0 Influenza A (Rapid) Influenza B (Rapid) 05/27/19 05/27/19 05/27/19 16:02 16:02 16:15 WBC 5.32 RBC 4.26 Hgb 9.9 L Hct 35.8 L MCV 84.0 MCH 23.2 L MCHC 27.7 L RDW Std Deviation 15.1 H Plt Count 184 MPV 10.7 H Immature Gran % (Auto) 0.2 Neut % (Auto) 80.4 H Lymph % (Auto) 9.2 L Weakley % (Auto) 7.7 Eos % (Auto) 2.1 Baso % (Auto) 0.4 Immature Gran # (Auto) 0.01 Neut # (Auto) 4.28 Lymph # (Auto) 0.49 L Weakley # (Auto) 0.41 Eos # (Auto) 0.11 Baso # (Auto) 0.02 D-Dimer, Quantitative Specimen Type Sample Site pH pCO2 pO2 HCO3 Base Excess Oxyhemoglobin ABG O2 Sat (Calculated) ABG O2 Saturation ABG Carboxyhemoglobin ABG Methemoglobin Robert Test A-a O2 Difference Total Hemoglobin Lactate Liter Flow Blood Gas Modality FiO2 % Sodium Potassium Chloride Carbon Dioxide Anion Gap BUN Creatinine Estimated GFR/1.73 m2 BUN/Creatinine Ratio Glucose Calculated Osmolality Calcium Total Bilirubin AST ALT Alkaline Phosphatase Nfv-S-Qfncskjgrmh Pept 146 Total Protein Albumin Globulin Albumin/Globulin Ratio Influenza A (Rapid) NEGATIVE Influenza B (Rapid) NEGATIVE Orders Category Date Time Status CHEST-PORTABLE [RAD] Stat Exams 05/27/19 15:14 Completed FOOT 2 VIEWS LEFT [RAD] Stat Exams 05/27/19 15:43 Completed ABG [RESP] Routine Lab 05/27/19 15:54 Completed CBC WITH ELECTRONIC DIFF [HEME] Stat Lab 05/27/19 16:02 Completed COMPREHENSIVE METABOLIC PANEL [CHEM] Stat Lab 05/27/19 16:02 Completed D-DIMER [COAG] Stat Lab 05/27/19 16:[address] Stat Lab 05/27/19 16:15 Completed PRO B-NATRIURETIC PEPTIDE Stat Lab 05/27/19 16:02 Completed Albuterol 2.5MG/Ipratrop 0.5MG [Duoneb (A & A)] Med 05/27/19 15:36 Discontinued 3 ml INH NOW ONE Aerosol Treatments Routine Oth 05/27/19 15:36 Completed Aerosol Treatments Stat Oth 05/27/19 15:36 Completed BIPAP Stat Oth 05/27/19 17:16 Active Venous U/S Left Leg Stat Ther 05/27/19 15:40 Completed Transfer/Admit Order [TRANSFER] Routine Transfer 05/27/19 17:29 Ordered Due to pt's hyoxia on arrival, clinical status, and abnormal ABG; I felt that the pt might benefit from admission at least overnight, spoke with Dr. Carlos about the case. Result Diagrams: 05/27/19 16:02 05/27/19 16:02 - XRAY 1 XRAY Study: Chest Impression: See EMR Report ( EXAM: CHEST-PORTABLE HISTORY: SOB, Cough TECHNIQUE: Single view COMPARISON: 05/03/2019 FINDINGS: The patient is rotated to the right. The left hemidiaphragm is elevated. The heart is enlarged. No pulmonary edema. Likely fibrosis in the left lung base. No consolidation. Severe shoulder arthritis. No pleural effusions identified. IMPRESSION: No pneumonia or congestive failure Electronically signed by Quique Valentine 05/27/2019 3:35 PM 05/27/19 [id number]) 2 XRAY: Left XRAY Study: Foot Impression: See EMR Report ("FOOT 3 VIEWS LEFT - 05/27/2019 INDICATION: foot/toe redness, swelling, pain TECHNIQUE: Three views COMPARISON: 10/05/2018 FINDINGS: Bones are osteopenic. There is severe degenerative irregularity with erosions at the ankle joint and all the mid tarsal joints. There are bulky degenerative heel spurs. There is severe pedal edema. There are clearly chronic, nondisplaced stress fractures at the distal shafts of the second, third, fourth, and fifth metatarsals. These were probably present on the previous x-ray, but there is a lot of remodeling since then. IMPRESSION: Progression in the severe chronic changes. Electronically signed by Clinton Espinosa 05/27/2019 5:47 PM 05/27/19 [id number]") - ULTRASOUND (By Radiology) 1 US Study: Head & Neck (Soft Tissue) Impression: See EMR Report (no deep or superficial venous thrombosis) - CONSULTS/PCP/HOSPITALIST Notification #1 *Consult/PCP/Hospitalist*: Dr. Carlos Time Discussed: 17:00 Consult Disposition: Will see in ED, Admit Departure - Departure Date of Disposition Decision: 05/27/19 Time of Disposition Decision: 17:03 DIAGNOSIS: Hypercarbia, Hypoxemia Disposition: ADMITTED INPATIENT 09 Certified Medical Emergency: Emergent Condition: Stable Referrals and Follow-Ups: None,PCP [Primary Care Provider] - - Critical Care Note This patient required my direct & personal management of CC.: No Attestation - Physician/ AIME Attestation Patient care was provided by Advanced Practice Provider:: No The physician spent face to face time with patient:: Yes Advanced Practice Provider documentation review:: Supervising physician onsite and consulted in the evaluation and care of this patient. The physician did have a face to face encounter with the patient.
[2019-05-27] MEDS ORDERED: DUONEB (A & A) INH ONE (15:36)
--- NOTE | 2019-05-27 15:37 | Diag Imaging Result Doc PS360 ---
EXAM: CHEST-PORTABLE HISTORY: SOB, Cough TECHNIQUE: Single view COMPARISON: 05/03/2019 FINDINGS: The patient is rotated to the right. The left hemidiaphragm is elevated. The heart is enlarged. No pulmonary edema. Likely fibrosis in the left lung base. No consolidation. Severe shoulder arthritis. No pleural effusions identified. IMPRESSION: No pneumonia or congestive failure Electronically signed by Quique Valentine 05/27/2019 3:35 PM
[2019-05-27 16:08] LABS: BE 6.7 mmoll (-3.0-3.0); BLOOD TYPE ARTERIAL; HCO3-(ACT) 30.1 mmoll (20.0-26.0); METHB 1.1 % (0.0-1.5); O2(CT) 14.4 mL/dL (15.0-23.0); O2HB 95.8 % (95.0-99.0); PO2(98.6) 128 mmHg (60-100); SAMPLE BLOOD; SAO2 99.2 % (95.0-100.0); THB 10.5 g/dL (11.5-17.4)
[2019-05-27 16:10] LABS: ALLEN TEST YES; MODALITY CANNULA; PCO2(98.6) 71 mmHg (35-45)
[2019-05-27 16:43] LABS: BASO# 0.02 X1000 (0.0-0.2); BASO% 0.4 % (0.0-0.8); EOS# 0.11 X1000 (0.0-0.7); EOS% 2.1 % (0.0-10.0); HEMATOCRIT 35.8 % (37.0-47.0); HEMOGLOBIN 9.9 g/dL (12.0-16.0); IMM GRAN# 0.01 X1000 (0.0-0.04); IMM GRAN% 0.2 % (0.0-0.5); LYMPH# 0.49 X1000 (1.2-3.4); LYMPH% 9.2 % (20.5-51.1); MCH 23.2 PG (27-31); MCHC 27.7 g/dL (33-37); MONO# 0.41 X1000 (0.11-0.59); MONO% 7.7 % (1.7-9.3); MPV 10.7 FL (7.4-10.4); NEUT# 4.28 X1000 (1.4-6.5); NEUT% 80.4 % (42.2-75.2); PLT 184 X1000 (130-400); RBC 4.26 XMIL (4.2-5.4); RDW 15.1 % (11.5-14.5); WBC 5.32 X1000 (4.8-10.8)
[2019-05-27 16:50] LABS: AGAP 8; ALBUMIN 3.7 g/dL (3.5-5.0); ALKALINE PHOSPHATASE 94 U/L (32-104); BUN 6 mg/dL (8-22); CALCIUM 8.9 mg/dL (8.8-10.2); CHLORIDE 99 mmol/L (98-107); COSMO 273; CREATININE 0.5 mg/dL (0.5-0.9); ESTIMATED GFR > 60; GLUCOSE 123 mg/dL (70-104); GOT 11 U/L (10-30); GPT 6 U/L (10-36); POTASSIUM 4.1 mmol/L (3.5-5.1); SODIUM 137 mmol/L (136-145); TCO2 30 mmol/L (25-35); TOTAL PROTEIN 6.6 g/dL (6.3-8.3)
[2019-05-27 16:52] LABS: INFLUENZA A NEGATIVE (NEGATIVE); INFLUENZA B NEGATIVE (NEGATIVE)
--- NOTE | 2019-05-27 17:50 | Diag Imaging Result Doc PS360 ---
FOOT 3 VIEWS LEFT - 05/27/2019 INDICATION: foot/toe redness, swelling, pain TECHNIQUE: Three views COMPARISON: 10/05/2018 FINDINGS: Bones are osteopenic. There is severe degenerative irregularity with erosions at the ankle joint and all the mid tarsal joints. There are bulky degenerative heel spurs. There is severe pedal edema. There are clearly chronic, nondisplaced stress fractures at the distal shafts of the second, third, fourth, and fifth metatarsals. These were probably present on the previous x-ray, but there is a lot of remodeling since then. IMPRESSION: Progression in the severe chronic changes. Electronically signed by Clinton Espinosa 05/27/2019 5:47 PM
--- NOTE | 2019-05-27 18:15 | Vascular Study Report ---
Venous U/S Left Leg - 05/27/2019 INDICATION: redness and swelling TECHNIQUE: COMPARISON: 12/30/2017 FINDINGS: The veins of the left leg are fully compressible. There is normal color and pulse wave Doppler signal. No mass or fluid collection. IMPRESSION: Negative exam. Electronically signed by Clinton Espinosa 05/27/2019 6:13 PM
[2019-05-27] MEDS ORDERED: XYLOCAINE-MPF 1% INJ ONE (19:08)
[2019-05-27] MEDS ORDERED: TYLENOL PO PRN (19:08)
[2019-05-27] MEDS ORDERED: ROCEPHIN IM ONE (19:08)
[2019-05-27] MEDS ORDERED: ZOFRAN IV PRN (19:08)
[2019-05-27] MEDS: DUONEB (A & A) INH SCH ×2 (19:33→22:49)
--- NOTE | 2019-05-27 20:20 | HISTORY AND PHYSICAL ---
PRIMARY CARE PROVIDER: None. CHIEF COMPLAINT: Left lower extremity redness and left great toe wound. HISTORY OF PRESENT ILLNESS: Ms. Godinez is an 83-year-old, female, well known to our service, with a past medical history of COPD, morbid obesity, Pickwickian syndrome with obstructive sleep apnea, chronic hypercapnic hypoxemic respiratory failure, congestive heart failure, hypothyroidism, hypertension, GERD, restless leg syndrome, left breast cancer, right thigh cancer, right elulx-wby-qvat amputation, recurrent left lower extremity cellulitis, chronic back pain with chronic opioid use and abuse, anxiety, noncompliance with medications and followups, who presented to [place] for increased extremity pain and redness in her left lower extremity. White count is actually normal at 5. However, they ran an ABG that showed a pH of 7.30, pCO2 of 71, PO2 of 128, and a bicarbonate of 30, on 2 L nasal cannula. She came in without her home oxygen on and her initial O2 saturation was 82%. They did a chest x- ray that showed no pneumonia or congestive heart failure. Venous Doppler was negative on the left. Her foot x-ray shows progressive and severe chronic changes related to stress fractures of the distal shafts of the 2nd, 3rd, 4th, and 5th metatarsals that were probably present on previous x- rays, but now there is a lot of remolding. The patient will be admitted. They were unable to get any IV started. We will do a dose of IM Rocephin and start her on p.o. Zyvox. Her left lower extremity his grossly erythematous and warm to the touch. She does have a wound on her great toe. It does not appear to be infected. Appears she ripped a corn off. I did not appreciate any oozing or any foul odor. She was refusing to wear BiPAP. She is actually awake, alert, and oriented, breathing well and saturating well on supplemental O2. PAST MEDICAL HISTORY: Per HPI. PAST SURGICAL HISTORY: Appendectomy, left ankle repair, adenoidectomy, lower back surgery, hysterectomy, right uzasl-yxj-yzkt amputation, bilateral mastectomy, right shoulder surgery, hemorrhoidectomy. SOCIAL HISTORY: Lives with her . No history of tobacco, alcohol, or illicit drug use. FAMILY HISTORY: Positive for diabetes and heart disease. ALLERGIES: Buprenex, Stadol, Nubain, morphine, Toradol, Cipro. REVIEW OF SYSTEMS: Complete and negative, except for those mentioned in HPI. PHYSICAL EXAMINATION: GENERAL: Ms. Godinez is an 83-year-old, female, who is actually sitting up in the bed, joking around with Dr. Carlos at the bedside, in no acute distress. Saturating well on 2 L nasal cannula. VITAL SIGNS: Temperature is 99.2 degrees, heart rate 89, respirations 18, blood pressure 146/76. Initial O2 saturation on room air was 82%, 99% on 2 L. HEENT: Atraumatic, normocephalic. PERRL. NECK: Supple. Trachea midline. CARDIOVASCULAR: S1, S2 appreciated. RESPIRATORY: Lung sounds, I did appreciate some wheezes bilaterally. I could not appreciate any rhonchi, however, when she coughs, you can appreciate some congestion in her chest, but no rales. GASTROINTESTINAL: Obese, soft, nontender, nondistended. Positive bowel sounds in 4 quadrants. EXTREMITIES: Right mrgea-azf-vqui amputation. Left lower extremity, she does have pitting edema, a wound to her left great toe where she scraped a corn off. I do not appreciate any oozing or foul smell. Her chronic left lower extremity cellulitis has exacerbated. It is very erythematous and very warm to the touch. There is no oozing. NEUROLOGIC: The patient is actually awake, alert, joking around and laughing with Dr. Carlos at bedside. No focal deficits noted. DIAGNOSTIC DATA: Per HPI. LABORATORY DATA: White count 5, hemoglobin and hematocrit 9 and 35, platelet count is 184,000. D- dimer was 0.77, however, patient has chronically elevated D-dimers. PH is 7.30, pCO2 of 71, PO2 of 128, O2 saturation on 2 L is 99%. Sodium 137, potassium 4.1, BUN 6, creatinine 0.5, blood glucose is 123. Flu A and B negative. ASSESSMENT AND PLAN: 1. Exacerbation of her chronic left lower extremity cellulitis with a wound to her left great toe. Imaging does not show any osteomyelitis in that toe, just some remodeling of old fractures. They attempted multiple times to start an IV. They were unsuccessful. We will do a dose of IV Rocephin and p.o. Zyvox. 2. Acute on chronic hypoxemic hypercapnic respiratory failure. The patient is much better now with supplemental O2 on. She is currently refusing to wear BiPAP. We will give her scheduled bronchodilators and p.r.n. for some mild wheezing. Recheck an ABG in the a.m. 3. Chronic obstructive pulmonary disease. 4. Pickwickian syndrome with obstructive sleep apnea. 5. Medical noncompliance. 6. Chronic pain syndrome. 7. Further recommendations to follow physician evaluation, laboratory and diagnostic data. Dictated by SARAH Zamora for Conor Carlos MD cc: Conor Carlos MD MTDD
--- NOTE | 2019-05-27 21:35 | HISTORY AND PHYSICAL ---
Patient seen and examined by myself. Full note dictated and discussed with nurse practitioner. Patient presented back to the hospital. She was just here approximately a month ago, with respiratory failure and hypercapnic failure. At this time, she presented to the ER noting that her left lower extremity has had increased swelling, pain, redness. She did create a small wound on her left great toe and over the next subsequent week, she started having increased redness and swelling. PLAN: We are going to admit her to the hospital. She currently is breathing very well, as well as when she left the hospital. She has a known history of congestive heart failure, hypertension. We are going to admit her, place her on antibiotics, and will follow. cc: Conor Carlos MD
[2019-05-27] MEDS: HEPARIN SUBQ SCH (22:10)
[2019-05-27] MEDS: ZYVOX PO SCH (22:10)
[2019-05-27 22:25] LABS: URINE SOURCE CATH
[2019-05-27 22:38] LABS: BILIRUBIN URINE NEGATIVE (NEGATIVE); BLOOD URINE NEGATIVE (NEGATIVE); COLOR STRAW; GLUCOSE URINE NEGATIVE (NEGATIVE); KETONE URINE NEGATIVE (NEGATIVE); LEUKOCYTES URINE NEGATIVE (NEGATIVE); NITRITE URINE NEGATIVE (NEGATIVE); PROTEIN URINE NEGATIVE (NEGATIVE); SP GRAVITY URINE 1.005; TURBIDITY URINE CLEAR (CLEAR); UROBILINOGEN URINE NORMAL (NORMAL)
[2019-05-27 22:40] LABS: UR EPITHELIAL CELLS <10 /HPF (<10); URINE BACTERIA NEGATIVE /HPF; URINE RBC <10 /HPF (<10); URINE WBC <10 /HPF (<10)
[2019-05-28] MEDS: DUONEB (A & A) INH SCH ×6 (02:53→23:01)
[2019-05-28 05:27] LABS: INR 0.96; PROTIME 13.3 Seconds (11.0-16.0)
[2019-05-28 05:34] LABS: BASO# 0.01 X1000 (0.0-0.2); BASO% 0.4 % (0.0-0.8); EOS# 0.12 X1000 (0.0-0.7); EOS% 4.2 % (0.0-10.0); HEMATOCRIT 34.3 % (37.0-47.0); HEMOGLOBIN 9.1 g/dL (12.0-16.0); LYMPH# 0.53 X1000 (1.2-3.4); LYMPH% 18.7 % (20.5-51.1); MCH 22.8 PG (27-31); MCHC 26.5 g/dL (33-37); MONO# 0.34 X1000 (0.11-0.59); MPV 10.6 FL (7.4-10.4); NEUT# 1.84 X1000 (1.4-6.5); NEUT% 64.7 % (42.2-75.2); PLT 163 X1000 (130-400); RBC 3.99 XMIL (4.2-5.4); RDW 15.4 % (11.5-14.5); WBC 2.84 X1000 (4.8-10.8)
[2019-05-28 06:03] LABS: AGAP 11; ALBUMIN 3.2 g/dL (3.5-5.0); ALKALINE PHOSPHATASE 85 U/L (32-104); BUN 5 mg/dL (8-22); CALCIUM 8.8 mg/dL (8.8-10.2); CHLORIDE 103 mmol/L (98-107); COSMO 281; CREATININE 0.4 mg/dL (0.5-0.9); ESTIMATED GFR > 60; GLUCOSE 101 mg/dL (70-104); GOT 11 U/L (10-30); GPT 5 U/L (10-36); MAGNESIUM 1.9 mg/dL (1.5-2.7); POTASSIUM 3.7 mmol/L (3.5-5.1); SODIUM 142 mmol/L (136-145); TCO2 29 mmol/L (25-35); TOTAL PROTEIN 5.8 g/dL (6.3-8.3)
[2019-05-28 06:07] LABS: BE 10.1 mmoll (-3.0-3.0); BLOOD TYPE ARTERIAL; HCO3-(ACT) 32.8 mmoll (20.0-26.0); METHB 0.6 % (0.0-1.5); O2(CT) 12.7 mL/dL (15.0-23.0); O2HB 93.7 % (95.0-99.0); PO2(98.6) 66 mmHg (60-100); SAMPLE BLOOD; SAO2 96.8 % (95.0-100.0); THB 9.6 g/dL (11.5-17.4); pH(98.6) 7.36 (7.35-7.45)
[2019-05-28 06:10] LABS: ALLEN TEST NO; MODALITY CANNULA; PCO2(98.6) 66 mmHg (35-45)
--- NOTE | 2019-05-28 07:33 | Diag Imaging Result Doc PS360 ---
EXAM: CHEST-PORTABLE - 05/28/2019 HISTORY: resp failure TECHNIQUE: Portable chest COMPARISON: 05/27/2019 FINDINGS: There is stable mild cardiomegaly. There is elevation of the left hemidiaphragm similar to prior. There is mild basilar scarring. There is possible superimposed atelectasis or infiltrate at the left base. There are no other acute changes identified. IMPRESSION: Elevation of left hemidiaphragm and basilar scarring. Possible superimposed atelectasis or infiltrate at left base. Electronically signed by Ritchie Andrew 05/28/2019 7:31 AM
[2019-05-28] MEDS: OXY IR PO PRN ×2 (08:00→20:34)
[2019-05-28] MEDS: ZYVOX PO SCH (08:01)
[2019-05-28] MEDS: HEPARIN SUBQ SCH ×4 (08:01→21:19)
[2019-05-28] MEDS ORDERED: TYLENOL PO PRN (08:29)
[2019-05-28] MEDS ORDERED: ZOFRAN IV PRN (08:29)
[2019-05-28] MEDS ORDERED: VANCOMYCIN IV PER PHARMACY MISC SCH (08:30)
[2019-05-28] MEDS ORDERED: NS 250 ML ONE (08:50)
[2019-05-28] MEDS ORDERED: VANCOMYCIN 2,300 MG in NS 500 ML IV ONE (10:00)
[2019-05-28] MEDS: ZOSYN 3.375 GM in NS 50 ML IV SCH ×4 (10:19→21:21)
[2019-05-28] MEDS: DIFLUCAN 100 MG/NS 100 MG/50 ML IVPB IV SCH (11:08)
[2019-05-28] MEDS: LYRICA PO SCH (23:34)
--- NOTE | 2019-05-29 01:07 | PROGRESS NOTE ---
DATE: 05/28/2019 SUBJECTIVE: Patient with no new complaints. Denies any current fevers, chills. PHYSICAL EXAMINATION: Vital Signs: Temperature 98 degrees, pulse 76, respiratory 18, BP 161/60. General: Patient is a morbidly obese female who is in no respiratory distress. HEENT: Normocephalic. Neck: Supple. Cardiovascular: Regular rate. Chest: Clear. Abdomen: Soft, nondistended, nontender. Extremities: Moves all extremities. Neurologic: No changes. Skin: She does have erythema and increased warmth in her left lower extremity. No real changes from yesterday. ASSESSMENT: 1. Cellulitis, left lower extremity. 2. Poor intravenous access. 3. Morbid obesity. 4. Acute on chronic hypoxic respiratory and hypercapnic failure. 5. Chronic obstructive pulmonary disease. 6. Pickwickian syndrome with obstructive sleep apnea. 7. Medical noncompliance. PLAN: We will continue patient in the hospital. Continue antibiotics, IV fluids, oxygen. We are going to place a PICC line as she has no IV access currently and then we will adjust her antibiotics to Zosyn and vancomycin. cc: Conor Carlos MD
[2019-05-29] MEDS: DUONEB (A & A) INH SCH ×6 (03:06→23:09)
[2019-05-29] MEDS: ZOSYN 3.375 GM in NS 50 ML IV SCH ×5 (04:04→22:51)
[2019-05-29] MEDS: OXY IR PO PRN (04:50)
[2019-05-29 06:26] LABS: HEMATOCRIT 33.2 % (37.0-47.0); HEMOGLOBIN 8.8 g/dL (12.0-16.0); MCH 22.6 PG (27-31); MCHC 26.5 g/dL (33-37); MCV 85.1 FL (81-99); MPV 10.2 FL (7.4-10.4); RBC 3.9 XMIL (4.2-5.4); RDW 15.7 % (11.5-14.5)
[2019-05-29 06:35] LABS: CHLORIDE 100 mmol/L (98-107); POTASSIUM 3.8 mmol/L (3.5-5.1); SODIUM 140 mmol/L (136-145)
[2019-05-29 06:36] LABS: AGAP 10; ALBUMIN 3.3 g/dL (3.5-5.0); ALKALINE PHOSPHATASE 79 U/L (32-104); BUN 8 mg/dL (8-22); CALCIUM 8.8 mg/dL (8.8-10.2); COSMO 278; CREATININE 0.6 mg/dL (0.5-0.9); ESTIMATED GFR > 60; GLUCOSE 107 mg/dL (70-104); GOT 10 U/L (10-30); GPT 6 U/L (10-36); TCO2 31 mmol/L (25-35); TOTAL PROTEIN 5.8 g/dL (6.3-8.3)
[2019-05-29] MEDS: CYTOTEC PO SCH ×2 (08:43→22:53)
[2019-05-29] MEDS: KLONOPIN PO SCH ×2 (08:44→23:48)
[2019-05-29] MEDS: DOXYCYCLINE PO SCH ×2 (08:44→22:52)
[2019-05-29] MEDS: PAXIL PO SCH (08:44)
[2019-05-29] MEDS: LASIX PO SCH ×2 (08:44→22:52)
[2019-05-29] MEDS: MYRBETRIQ E.R. PO SCH (08:44)
[2019-05-29] MEDS: HEPARIN SUBQ SCH ×3 (08:44→22:51)
[2019-05-29] MEDS: VOLTAREN PO SCH ×2 (08:44→22:52)
[2019-05-29] MEDS: LYRICA PO SCH ×2 (08:45→22:52)
[2019-05-29] MEDS ORDERED: MISOPROSTOL PO SCH (09:00)
[2019-05-29] MEDS ORDERED: DICLOFENAC PO SCH (09:00)
[2019-05-29] MEDS: DIFLUCAN 100 MG/NS 100 MG/50 ML IVPB IV SCH (10:00)
[2019-05-29] MEDS: SYNTHROID PO SCH ×2 (10:00)
[2019-05-29] MEDS: VANCOMYCIN 2,000 MG in NS 500 ML IV SCH (10:38)
[2019-05-29] MEDS: ZANAFLEX PO SCH (22:54)
[2019-05-29] MEDS ORDERED: NS 250 ML ONE (23:30)
--- NOTE | 2019-05-30 01:25 | PROGRESS NOTE ---
DATE: 05/29/2019 SUBJECTIVE: Patient has no new complaints although states that she feels anxious and wants her Klonopin. States that she is hurting and wants her OxyContin. Denies any fevers. PHYSICAL EXAMINATION: Vital Signs: Temperature 98 degrees, pulse 76, respiratory 18, BP 161/63. General: Patient is awake. She is in no current respiratory distress. Morbidly obese female. HEENT: Normocephalic. Neck: Supple. Cardiovascular: Regular rate. Chest: Decreased breath sounds bilaterally. Abdomen: Soft, obese, nondistended. Extremities: Moves all extremities. Skin: Her left lower extremity has less erythema although still present, not quite as deep red. Has decreased warmth. wet machine tender. ASSESSMENT: 1. Cellulitis, left lower extremity. 2. Acute on chronic hypoxic respiratory failure. 3. Hypercapnic respiratory failure. 4. Pickwickian syndrome. 5. Morbid obesity. 6. Anemia of chronic disease. PLAN: Discussed with patient that we will continue her narcotics, Klonopin and Oxy IR although I did discuss with her that she is on high doses of both and certainly should consider weaning these. However, if she is not given any she states she is going to leave AMA. We will continue to monitor. cc: Conor Carlos MD
[2019-05-30] MEDS: DUONEB (A & A) INH SCH ×6 (03:47→23:12)
[2019-05-30] MEDS: ZOSYN 3.375 GM in NS 50 ML IV SCH ×4 (04:41→21:39)
[2019-05-30] MEDS: SYNTHROID PO SCH ×2 (06:40)
[2019-05-30] MEDS: OXY IR PO PRN ×2 (06:40→15:31)
[2019-05-30] MEDS ORDERED: SYNTHROID PO SCH (07:00)
[2019-05-30] MEDS: KLONOPIN PO SCH ×2 (08:35→21:39)
[2019-05-30] MEDS: MYRBETRIQ E.R. PO SCH (08:35)
[2019-05-30] MEDS: VOLTAREN PO SCH (08:35)
[2019-05-30] MEDS: LASIX PO SCH (08:35)
[2019-05-30] MEDS: LYRICA PO SCH ×2 (08:35→21:38)
[2019-05-30] MEDS: CYTOTEC PO SCH (08:35)
[2019-05-30] MEDS: DIFLUCAN 100 MG/NS 100 MG/50 ML IVPB IV SCH (08:35)
[2019-05-30] MEDS: DOXYCYCLINE PO SCH ×2 (08:35→21:38)
[2019-05-30] MEDS: HEPARIN SUBQ SCH ×3 (08:36→21:38)
[2019-05-30] MEDS: PAXIL PO SCH (09:25)
--- NOTE | 2019-05-30 10:31 | Diag Imaging Result Doc PS360 ---
EXAM: CHEST-PORTABLE - 05/30/2019 HISTORY: dyspnea TECHNIQUE: Portable chest COMPARISON: 05/28/2019 FINDINGS: There is been some decrease in left basilar opacity compared to prior. There has been interval insertion of PICC from the right pelvis. At or near the caval atrial junction. There are no other acute changes identified. There is no evidence of pneumothorax. IMPRESSION: Some decrease in left basilar opacity compared to prior. Electronically signed by Ritchie Andrew 05/30/2019 10:29 AM
[2019-05-30] MEDS: VANCOMYCIN 2,000 MG in NS 500 ML IV SCH (10:45)
[2019-05-30] MEDS ORDERED: DIFLUCAN 100 MG/NS 100 MG/50 ML IVPB IV SCH (12:01)
[2019-05-30] MEDS: DUONEB (A & A) INH PRN (13:34)
[2019-05-30] MEDS ORDERED: LASIX IV ONE (14:32)
--- NOTE | 2019-05-30 21:05 | PROGRESS NOTE ---
DATE: 05/30/2019 SUBJECTIVE: The patient notes that she is feeling better from swelling and pain in the left lower extremity, but states she is a little short of breath today. PHYSICAL EXAM: Vital signs: Temperature 97.0 degrees, pulse 60, respiratory rate 18, BP 108/53. Sat 98% on 3 L. General: Patient is morbidly obese. She is in no current respiratory distress. She is lying in the bed with the head elevated at 30 degrees. HEENT: Normocephalic. Neck: Supple. Cardiovascular: Regular rate. No murmurs. Chest: Positive rhonchi throughout. No current crackles. Abdomen: Soft, obese, nondistended. Extremities: Moves all extremities well. Her left lower extremity erythema has improved, although still present, it is much less warm to the touch. ASSESSMENT: 1. Cellulitis, improving. 2. Hypoxic respiratory failure, stable. 3. Rhonchi. Certainly could be getting a little fluid overloaded. We will give her Lasix, check a chest x-ray and will follow. 4. Obesity. 5. Chronic anxiety. 6. Chronic pain. PLAN: We will continue antibiotics today. Continue breathing treatments and oxygen. Start Lasix. Check a chest x-ray and we will follow. cc: Conor Carlos MD
[2019-05-30] MEDS: ZANAFLEX PO SCH (21:38)
[2019-05-31] MEDS: OXY IR PO PRN ×3 (03:47→22:28)
[2019-05-31] MEDS: ZOSYN 3.375 GM in NS 50 ML IV SCH ×5 (03:47→22:29)
[2019-05-31] MEDS: DUONEB (A & A) INH SCH ×6 (03:56→23:18)
[2019-05-31 06:19] LABS: ALBUMIN 3.2 g/dL (3.5-5.0); CALCIUM 8.6 mg/dL (8.8-10.2); MAGNESIUM 1.9 mg/dL (1.5-2.7); TOTAL BILIRUBIN 0.2 mg/dL (0.20-1.00); TOTAL PROTEIN 5.9 g/dL (6.3-8.3)
[2019-05-31 06:33] LABS: HEMATOCRIT 34.1 % (37.0-47.0); MCH 22.7 PG (27-31); MCHC 26.4 g/dL (33-37); MCV 86.1 FL (81-99); MPV 10.1 FL (7.4-10.4); RBC 3.96 XMIL (4.2-5.4); RDW 15.9 % (11.5-14.5); WBC 4.1 X1000 (4.8-10.8)
[2019-05-31] MEDS: SYNTHROID PO SCH ×2 (06:43)
[2019-05-31] MEDS: DOXYCYCLINE PO SCH ×2 (08:34→22:29)
[2019-05-31] MEDS: HEPARIN SUBQ SCH ×3 (08:35→22:30)
[2019-05-31] MEDS: PAXIL PO SCH (08:35)
[2019-05-31] MEDS: DIFLUCAN PO SCH (08:35)
[2019-05-31] MEDS: LYRICA PO SCH ×2 (08:35→22:29)
[2019-05-31] MEDS: LASIX IV SCH ×2 (08:35→22:30)
[2019-05-31] MEDS: MYRBETRIQ E.R. PO SCH (08:35)
[2019-05-31] MEDS: KLONOPIN PO SCH ×2 (08:35→22:29)
[2019-05-31] MEDS ORDERED: LASIX IV SCH (09:00)
[2019-05-31 20:50] LABS: BASO# 0.02 X1000 (0.0-0.2); BASO% 0.5 % (0.0-0.8); EOS# 0.17 X1000 (0.0-0.7); HEMATOCRIT 35.9 % (37.0-47.0); HEMOGLOBIN 9.5 g/dL (12.0-16.0); IMM GRAN# 0.01 X1000 (0.0-0.04); IMM GRAN% 0.2 % (0.0-0.5); LYMPH# 0.81 X1000 (1.2-3.4); LYMPH% 19.1 % (20.5-51.1); MCH 22.9 PG (27-31); MCHC 26.5 g/dL (33-37); MCV 86.5 FL (81-99); MONO# 0.42 X1000 (0.11-0.59); MONO% 9.9 % (1.7-9.3); MPV 10.5 FL (7.4-10.4); NEUT# 2.81 X1000 (1.4-6.5); NEUT% 66.3 % (42.2-75.2); PLT 176 X1000 (130-400); RBC 4.15 XMIL (4.2-5.4); RDW 15.9 % (11.5-14.5); WBC 4.24 X1000 (4.8-10.8)
[2019-05-31 20:59] LABS: ALBUMIN 3.5 g/dL (3.5-5.0); CALCIUM 8.5 mg/dL (8.8-10.2); CREATININE 1.2 mg/dL (0.5-0.9); POTASSIUM 3.9 mmol/L (3.5-5.1); TOTAL BILIRUBIN 0.2 mg/dL (0.20-1.00)
--- NOTE | 2019-05-31 21:49 | PROGRESS NOTE ---
DATE: 05/31/2019 SUBJECTIVE: Patient notes that she has had a little bit of increased cough and congestion overnight with a little increased work of breathing. Denies any fevers or chills. PHYSICAL EXAMINATION: Vital signs: Temperature 97 degrees, pulse 60, respiratory rate 18, BP 108/53, saturation 88% on 2 L. General: Patient is morbidly obese. She is in mild respiratory distress. HEENT: Normocephalic. Neck: Supple. Cardiovascular: Regular rate. Chest: Positive rhonchi throughout. No crackles. Abdomen: Soft, obese. Extremities: Moves all extremities. Skin: She has much less erythema and edema of her left lower extremity. ASSESSMENT: 1. Cellulitis of the left lower extremity. 2. Pulmonary edema. 3. Acute on chronic hypercapnic and hypoxic respiratory failure. 4. Chronic obstructive pulmonary disease. 5. Pickwickian syndrome. 6. Obstructive sleep apnea. 7. Morbid obesity. PLAN: We are going to continue patient in the hospital and continue antibiotics. We will add Lasix. Recheck a chest x-ray. Check labs in the a.m. and follow. cc: Conor Carlos MD
[2019-05-31] MEDS: ZANAFLEX PO SCH (23:00)
[2019-06-01 02:55] LABS: HEMATOCRIT 35.7 % (37.0-47.0); HEMOGLOBIN 9.6 g/dL (12.0-16.0); MCH 23.1 PG (27-31); MCHC 26.9 g/dL (33-37); MPV 9.9 FL (7.4-10.4); RBC 4.15 XMIL (4.2-5.4); RDW 15.8 % (11.5-14.5); WBC 4.95 X1000 (4.8-10.8)
[2019-06-01 03:08] LABS: ALBUMIN 3.5 g/dL (3.5-5.0); CALCIUM 8.6 mg/dL (8.8-10.2); CREATININE 1.2 mg/dL (0.5-0.9); MAGNESIUM 1.9 mg/dL (1.5-2.7); TOTAL BILIRUBIN 0.2 mg/dL (0.20-1.00); TOTAL PROTEIN 6.1 g/dL (6.3-8.3)
[2019-06-01] MEDS: DUONEB (A & A) INH SCH ×6 (03:20→23:21)
[2019-06-01] MEDS: ZOSYN 3.375 GM in NS 50 ML IV SCH (04:55)
[2019-06-01] MEDS: SYNTHROID PO SCH ×4 (05:39→06:12)
--- NOTE | 2019-06-01 07:18 | Diag Imaging Result Doc PS360 ---
EXAM: CHEST-PORTABLE - 06/01/2019 HISTORY: dyspnea TECHNIQUE: Portable chest COMPARISON: 05/30/2019 FINDINGS: Ill-defined left basilar opacity appears stable. The right lung appears essentially clear. There is no substantial pleural effusion or pneumothorax identified. Heart size is stable. PICC remains in place. IMPRESSION: Stable ill-defined left basilar opacity. Electronically signed by Ritchie Andrew 06/01/2019 7:15 AM
[2019-06-01] MEDS: MAXIPIME 1 GM in NS 50 ML IV SCH ×2 (09:31→20:28)
[2019-06-01] MEDS: HEPARIN SUBQ SCH ×2 (09:32→21:15)
[2019-06-01] MEDS: PAXIL PO SCH (09:32)
[2019-06-01] MEDS: OXY IR PO PRN ×2 (09:33→17:06)
[2019-06-01] MEDS: KLONOPIN PO SCH ×2 (09:33→20:30)
[2019-06-01] MEDS: LASIX IV SCH ×2 (09:33→20:31)
[2019-06-01] MEDS: DOXYCYCLINE PO SCH ×2 (09:33→20:30)
[2019-06-01] MEDS: DIFLUCAN PO SCH (09:34)
[2019-06-01] MEDS: MYRBETRIQ E.R. PO SCH (09:34)
[2019-06-01] MEDS: LYRICA PO SCH ×2 (09:34→20:30)
[2019-06-01] MEDS: ZANAFLEX PO SCH (20:30)
--- NOTE | 2019-06-01 21:26 | PROGRESS NOTE ---
DATE: 06/01/2019 SUBJECTIVE: Patient notes overall she is starting to breathe a little bit easier, still having some cough and congestion, still having some shortness of breath but improved. Denies any fevers or chills. OBJECTIVE: Vital signs: Temperature 97, pulse 60, respiratory rate 18, BP 108/53, sat 88% on room air, 94% on 2 L. General: Patient is awake, pleasant in no current distress. HEENT: Normocephalic. Neck: Supple. Cardiovascular: Regular rate. Chest: Decreased, positive rhonchi throughout, although improved from yesterday. Abdomen: Soft, nondistended. Extremities: Moves all extremities. Skin: Left lower extremity erythema has improved. ASSESSMENT: 1. Cellulitis. 2. Acute hypoxic respiratory failure. 3. Left basilar pneumonia. We are going to adjust her antibiotics as she has previously been on Zosyn. We are going to change this as her x-ray seems to be slightly worse. 4. Chronic anxiety. 5. Chronic pain. PLAN: We are going to continue oxygen breathing treatments, antibiotics, and will follow. cc: Conor Carlos MD
[2019-06-02] MEDS: DUONEB (A & A) INH SCH ×6 (03:12→23:52)
[2019-06-02] MEDS: SYNTHROID PO SCH ×2 (06:14)
[2019-06-02] MEDS: HEPARIN SUBQ SCH ×3 (07:59→21:59)
[2019-06-02] MEDS: LASIX PO SCH (08:00)
[2019-06-02] MEDS: DOXYCYCLINE PO SCH ×2 (08:00→21:58)
[2019-06-02] MEDS: DIFLUCAN PO SCH (08:00)
[2019-06-02] MEDS: PAXIL PO SCH (08:00)
[2019-06-02] MEDS: LYRICA PO SCH ×2 (08:00→21:58)
[2019-06-02] MEDS: MAXIPIME 1 GM in NS 50 ML IV SCH ×2 (08:00→21:59)
[2019-06-02] MEDS: MYRBETRIQ E.R. PO SCH (08:02)
[2019-06-02] MEDS: KLONOPIN PO SCH ×2 (09:18→21:58)
[2019-06-02] MEDS: OXY IR PO PRN ×2 (15:07→23:19)
--- NOTE | 2019-06-02 21:44 | PROGRESS NOTE ---
DATE: 06/02/2019 SUBJECTIVE: Patient is sleeping soundly. She is easily awakened. PHYSICAL EXAMINATION: Vital Signs: Reviewed. Temperature 98.6 degrees, pulse 82, respiratory rate 18, BP 121/58, saturation 93% on 2 L. General: Patient is a morbidly obese female who currently is in minimal respiratory distress. HEENT: Normocephalic. Neck: Supple. Cardiovascular: Regular rate. Chest: Decreased, but equal. Positive rhonchi throughout. Abdomen: Soft, obese, nondistended. Extremities: Moves all extremities. Skin: Her left leg cellulitis has improved. ASSESSMENT: 1. Cellulitis. 2. Hypoxic respiratory failure. 3. Left basilar pneumonia. We switched to cefepime and doxycycline as her x-ray actually seemed to be a little bit worse. 4. Chronic obstructive pulmonary disease. 5. Morbid obesity. PLAN: We are going to continue patient in the hospital, continue antibiotics today, breathing treatments, oxygen. We will repeat labs an x-ray in the a.m. cc: Conor Carlos MD
[2019-06-02] MEDS: ZANAFLEX PO SCH (21:58)
[2019-06-03] MEDS: DUONEB (A & A) INH SCH ×6 (04:39→23:37)
[2019-06-03] MEDS: SYNTHROID PO SCH ×2 (06:04)
[2019-06-03 07:20] LABS: HEMATOCRIT 35.4 % (37.0-47.0); HEMOGLOBIN 9.6 g/dL (12.0-16.0); MCH 23.1 PG (27-31); MCHC 27.1 g/dL (33-37); MCV 85.3 FL (81-99); RBC 4.15 XMIL (4.2-5.4); RDW 15.5 % (11.5-14.5); WBC 3.99 X1000 (4.8-10.8)
[2019-06-03 07:27] LABS: ALBUMIN 3.4 g/dL (3.5-5.0); CALCIUM 9.2 mg/dL (8.8-10.2); CREATININE 0.9 mg/dL (0.5-0.9); MAGNESIUM 1.9 mg/dL (1.5-2.7); POTASSIUM 3.6 mmol/L (3.5-5.1); TOTAL BILIRUBIN 0.2 mg/dL (0.20-1.00); TOTAL PROTEIN 6.5 g/dL (6.3-8.3)
--- NOTE | 2019-06-03 08:58 | Diag Imaging Result Doc PS360 ---
EXAM: CHEST-PORTABLE - 06/03/2019 HISTORY: dyspnea TECHNIQUE: Portable chest COMPARISON: 07/31/2019 FINDINGS: Inspiration is somewhat shallow. There is stable mild cardiomegaly. There is ill-defined left basilar opacity which appears stable. There has been apparent development of mild perihilar infiltrate or atelectasis on the right. There is no substantial pleural effusion or pneumothorax identified. PICC remains in place. IMPRESSION: Somewhat shallow inspiration. Stable mild cardiomegaly. Stable ill-defined left basilar opacity. Development of mild perihilar infiltrate or atelectasis on the right. Electronically signed by Ritchie Andrew 06/03/2019 8:56 AM
[2019-06-03] MEDS: LYRICA PO SCH ×2 (09:06→22:43)
[2019-06-03] MEDS: DOXYCYCLINE PO SCH ×2 (09:06→22:43)
[2019-06-03] MEDS: PAXIL PO SCH (09:06)
[2019-06-03] MEDS: LASIX PO SCH (09:06)
[2019-06-03] MEDS: DIFLUCAN PO SCH (09:06)
[2019-06-03] MEDS: MAXIPIME 1 GM in NS 50 ML IV SCH ×2 (09:06→22:43)
[2019-06-03] MEDS: KLONOPIN PO SCH ×2 (09:06→22:43)
[2019-06-03] MEDS: MYRBETRIQ E.R. PO SCH (09:06)
[2019-06-03] MEDS: HEPARIN SUBQ SCH ×2 (11:40→22:42)
[2019-06-03] MEDS: OXY IR PO PRN ×2 (12:57→22:43)
--- NOTE | 2019-06-03 21:59 | PROGRESS NOTE ---
DATE: 06/03/2019 SUBJECTIVE: Patient notes that she is feeling okay. She is asking to go home. PHYSICAL EXAMINATION: Vital signs: Temperature 98, pulse 82, respiratory 20, BP 128/72, sat 94% on 2 L. General: Patient is a morbidly obese female who is in no distress. HEENT: Normocephalic. Neck: Supple. Cardiovascular: Regular rate. Chest: Distant but equal, minimal rhonchi. No crackles. Abdomen: Soft, obese. Extremities: Moves all extremities. Skin: Left lower extremity edema has improved. Erythema has improved. ASSESSMENT: 1. Cellulitis of the left lower extremity. 2. Left basilar pneumonia as well as a new perihilar pneumonia versus atelectasis. 3. Pickwickian syndrome. 4. Obstructive sleep apnea. 5. Chronic pain. PLAN: We are going to continue patient in the hospital. Recheck labs in the a.m. We will also recheck a chest x-ray. Certainly concerned that she triggered for the sepsis protocol and therefore was given a bolus of fluids, although this certainly may create a problem. Therefore, we have stopped her fluids. We just had to increase her IV Lasix due to fluid overload. We are going to continue oxygen wean as tolerated. If her symptoms have not improved, we will get a chest CT in the morning. cc: Conor Carlos MD
[2019-06-03] MEDS: ZANAFLEX PO SCH (22:43)
[2019-06-04] MEDS: DUONEB (A & A) INH SCH ×6 (03:11→22:44)
[2019-06-04] MEDS: SYNTHROID PO SCH ×2 (06:16)
[2019-06-04] MEDS: HEPARIN SUBQ SCH ×2 (09:01→21:36)
[2019-06-04] MEDS: LASIX PO SCH (09:01)
[2019-06-04] MEDS: PAXIL PO SCH (09:01)
[2019-06-04] MEDS: MYRBETRIQ E.R. PO SCH (09:01)
[2019-06-04] MEDS: DIFLUCAN PO SCH (09:01)
[2019-06-04] MEDS: MAXIPIME 1 GM in NS 50 ML IV SCH ×2 (09:01→21:36)
[2019-06-04] MEDS: LYRICA PO SCH ×2 (09:01→21:36)
[2019-06-04] MEDS: OXY IR PO PRN ×2 (10:40→17:38)
--- NOTE | 2019-06-04 11:14 | Diag Imaging Result Doc PS360 ---
EXAM: CT THORAX W/O CONTRAST HISTORY: ? pneumonia vs atelectasis TECHNIQUE: CT chest without intravenous contrast. COMPARISON: None. FINDINGS: No pleural effusions. No aortic aneurysm. No cardiomegaly. Mildly prominent mediastinal and hilar nodes. There is bilateral lower lobe bronchiectasis. There are increased interstitial markings in the lower lungs. Bilateral breast implants. Limited images through the upper abdomen reveal a cholecystectomy and gastric bypass. IMPRESSION: Lower lung bronchiectasis with atelectasis and likely right lower lobe infiltrates. This exam was performed using automated exposure control, adjustment of mA or kV according to patient size, and/or use of iterative reconstruction technique. Electronically signed by Quique Valentine 06/04/2019 11:11 AM
[2019-06-04] MEDS: KLONOPIN PO SCH ×2 (11:58→21:36)
[2019-06-04] MEDS: ZANAFLEX PO SCH (21:36)
--- NOTE | 2019-06-04 22:16 | PROGRESS NOTE ---
DATE: 06/04/2019 SUBJECTIVE: Patient notes that she is starting to breathe a little bit better, still having cough at times. Denies fevers and chills. OBJECTIVE: Vital signs: Temperature 98, pulse 72, respiratory rate 20, BP 106/55, saturation 92% on 2 L. General: Patient is a morbidly obese female who is currently in minimal respiratory distress. She is sleeping and easily awakened. HEENT: Normocephalic. Neck: Supple. Cardiovascular: Regular rate. Chest: Decreased, positive rhonchi throughout. No current crackles. No wheezing. Abdomen: Soft. Extremities: Moves all extremities. ASSESSMENT: 1. Recurrent pneumonia. We have recently changed antibiotics to cefepime and doxycycline. 2. Pulmonary edema. She did receive a 1 L additional bolus due to elevated lactate. She is having a little bit more trouble this morning so therefore we have stopped her Lasix. We will continue to assess her perfusion. We will continue antibiotics, and we will follow. cc: Conor Carlos MD
[2019-06-05] MEDS: DUONEB (A & A) INH SCH ×5 (03:02→19:30)
[2019-06-05] MEDS: SYNTHROID PO SCH ×2 (06:46)
[2019-06-05] MEDS: OXY IR PO PRN ×2 (06:46→21:26)
[2019-06-05] MEDS: MYRBETRIQ E.R. PO SCH (08:59)
[2019-06-05] MEDS: LASIX PO SCH (09:00)
[2019-06-05] MEDS: KLONOPIN PO SCH ×2 (09:00→21:29)
[2019-06-05] MEDS: DIFLUCAN PO SCH (09:00)
[2019-06-05] MEDS: PAXIL PO SCH (09:00)
[2019-06-05] MEDS: DOXYCYCLINE PO SCH ×2 (09:00→21:28)
[2019-06-05] MEDS: MAXIPIME 1 GM in NS 50 ML IV SCH ×2 (09:00→21:26)
[2019-06-05] MEDS: LYRICA PO SCH ×2 (09:00→21:26)
[2019-06-05 09:02] LABS: HEMATOCRIT 36.2 % (37.0-47.0); HEMOGLOBIN 9.6 g/dL (12.0-16.0); MCH 22.9 PG (27-31); MCHC 26.5 g/dL (33-37); MCV 86.2 FL (81-99); MPV 10.3 FL (7.4-10.4); RBC 4.2 XMIL (4.2-5.4); RDW 15.4 % (11.5-14.5); WBC 3.89 X1000 (4.8-10.8)
[2019-06-05 09:33] LABS: AGAP 10; ALBUMIN 3.6 g/dL (3.5-5.0); ALKALINE PHOSPHATASE 92 U/L (32-104); BUN 17 mg/dL (8-22); CALCIUM 9.4 mg/dL (8.8-10.2); CHLORIDE 97 mmol/L (98-107); COSMO 287; CREATININE 0.8 mg/dL (0.5-0.9); ESTIMATED GFR > 60; GLUCOSE 148 mg/dL (70-104); GOT 14 U/L (10-30); GPT 7 U/L (10-36); MAGNESIUM 2.1 mg/dL (1.5-2.7); POTASSIUM 3.7 mmol/L (3.5-5.1); SODIUM 142 mmol/L (136-145); TCO2 35 mmol/L (25-35); TOTAL PROTEIN 6.6 g/dL (6.3-8.3)
[2019-06-05] MEDS: HEPARIN SUBQ SCH ×2 (11:12→21:28)
[2019-06-05] MEDS: DUONEB (A & A) INH PRN (19:56)
[2019-06-05] MEDS: ZANAFLEX PO SCH (21:26)
[2019-06-06] MEDS: DUONEB (A & A) INH SCH ×7 (00:04→22:51)
--- NOTE | 2019-06-06 01:43 | PROGRESS NOTE ---
DATE: 06/05/2019 SUBJECTIVE: Patient notes that she wants to go home but still states she is short of breath. Has not been out of bed. PHYSICAL EXAMINATION: Vital Signs: Temperature 98 degrees, pulse 78, respiratory 18, BP 130/62, saturation 98% on 2 L. General: Patient a pleasant, obese female who is in mild respiratory distress. HEENT: Normocephalic. Neck: Supple. Cardiovascular: Regular rate. Chest: Clear although decreased breath sounds and rhonchi throughout. Abdomen: Soft. Extremities: Moves all extremities. Skin: Her cellulitis left lower extremity appears to be improving. ASSESSMENT: 1. Cellulitis. 2. Pneumonia. 3. Adult failure to thrive. 4. Morbid obesity. 5. Chronic obstructive pulmonary disease. PLAN: We are going to continue patient in the hospital. We have adjusted her antibiotics again. Discussed with patient the importance of incentive spirometry. Does appear to have a worsening right lower lobe infiltrate. Her left side has improved. We are going to attempt to get her out of bed [*] cc: Conor Carlos MD
[2019-06-06] MEDS: SYNTHROID PO SCH ×4 (05:57→07:50)
[2019-06-06] MEDS: KLONOPIN PO SCH ×2 (09:00→21:58)
[2019-06-06] MEDS: MAXIPIME 1 GM in NS 50 ML IV SCH ×2 (10:10→21:25)
[2019-06-06] MEDS: PAXIL PO SCH (10:11)
[2019-06-06] MEDS: LYRICA PO SCH ×2 (10:11→21:58)
[2019-06-06] MEDS: DIFLUCAN PO SCH (10:11)
[2019-06-06] MEDS: DOXYCYCLINE PO SCH ×2 (10:11→21:58)
[2019-06-06] MEDS: MYRBETRIQ E.R. PO SCH (10:11)
[2019-06-06] MEDS: LASIX PO SCH (10:12)
--- NOTE | 2019-06-06 10:41 | PROGRESS NOTE ---
DATE: 06/06/2019 SUBJECTIVE: Patient states that she is starting to feel better, still having significant coughing, which is actually improving. OBJECTIVE: Vital Signs: Temperature 97.7, pulse 68, respiratory rate 20, blood pressure 116/61. General: Patient is awake, obese. She is in no current respiratory distress. HEENT: Normocephalic. Neck: Supple. Cardiovascular: Regular rate. Chest: Clear. No crackles. No wheezing. Positive rhonchi throughout. Abdomen: Soft. Obese. Extremities: Her left lower extremity edema has all but resolved. She does move her upper extremities and left extremity well. ASSESSMENT: 1. Acute hypoxic respiratory failure. Patient is on oxygen only at home at night, but she is requiring 2 L here. 2. Left lower extremity cellulitis. 3. Chronic obstructive pulmonary disease with exacerbation. 4. Right lower lobe pneumonia. 5. Obstructive sleep apnea. 6. Chronic pain. PLAN: We are going to continue the patient in the hospital. Recheck labs in the a.m. IgG subclasses are currently pending. We will continue to try to get her out of bed. Continue to attempt to wean her oxygen. We will check a sputum culture, if possible. Recheck chest x-ray and labs in the a.m. cc: Conor Carlos MD
[2019-06-06] MEDS: OXY IR PO PRN ×2 (12:22→21:58)
[2019-06-06] MEDS: HEPARIN SUBQ SCH ×2 (12:23→21:57)
[2019-06-06] MEDS: DUONEB (A & A) INH PRN (19:53)
[2019-06-06] MEDS: ZANAFLEX PO SCH (21:58)
[2019-06-07] MEDS: DUONEB (A & A) INH SCH ×6 (02:47→22:51)
[2019-06-07] MEDS: SYNTHROID PO SCH ×2 (06:16→06:17)
--- NOTE | 2019-06-07 08:19 | Diag Imaging Result Doc PS360 ---
EXAM: CHEST-PORTABLE HISTORY: dyspnea TECHNIQUE: Single view of the chest was performed portably. COMPARISON: 06/03/2019 FINDINGS: Right PICC catheter again noted in the right atrium. Cardiomegaly. Reduced lung volumes are unchanged. Slight increase in airspace disease right lung. Probable interval improvement in aeration of right lung. No substantial effusions. Stable bone destruction and periostitis right proximal humerus since at least 2018. IMPRESSION: Increasing alveolar infiltrate left lung. Electronically signed by Angelina Fan 06/07/2019 8:17 AM
[2019-06-07] MEDS: MAXIPIME 1 GM in NS 50 ML IV SCH (09:34)
[2019-06-07] MEDS: KLONOPIN PO SCH ×2 (09:35→20:13)
[2019-06-07] MEDS: HEPARIN SUBQ SCH ×2 (09:35→23:43)
[2019-06-07] MEDS: LASIX PO SCH (09:35)
[2019-06-07] MEDS: LYRICA PO SCH ×2 (09:35→20:13)
[2019-06-07] MEDS: DIFLUCAN PO SCH (09:35)
[2019-06-07] MEDS: MYRBETRIQ E.R. PO SCH (09:35)
[2019-06-07] MEDS: DOXYCYCLINE PO SCH (09:35)
[2019-06-07] MEDS: PAXIL PO SCH (09:35)
[2019-06-07 10:22] LABS: HEMATOCRIT 34.8 % (37.0-47.0); HEMOGLOBIN 9.4 g/dL (12.0-16.0); MCH 23.2 PG (27-31); MCV 85.7 FL (81-99); MPV 10.4 FL (7.4-10.4); RBC 4.06 XMIL (4.2-5.4); RDW 15.4 % (11.5-14.5); WBC 3.84 X1000 (4.8-10.8)
[2019-06-07 10:26] LABS: AGAP 12; ALBUMIN 3.5 g/dL (3.5-5.0); ALKALINE PHOSPHATASE 90 U/L (32-104); BUN 16 mg/dL (8-22); CALCIUM 9.4 mg/dL (8.8-10.2); CHLORIDE 94 mmol/L (98-107); COSMO 285; CREATININE 0.8 mg/dL (0.5-0.9); ESTIMATED GFR > 60; GLUCOSE 214 mg/dL (70-104); GOT 12 U/L (10-30); GPT 6 U/L (10-36); MAGNESIUM 1.8 mg/dL (1.5-2.7); POTASSIUM 3.2 mmol/L (3.5-5.1); SODIUM 139 mmol/L (136-145); TCO2 33 mmol/L (25-35); TOTAL PROTEIN 6.3 g/dL (6.3-8.3)
[2019-06-07] MEDS ORDERED: KLOR-CON PO ONE (15:36)
[2019-06-07] MEDS ORDERED: ZOSYN 3.375 GM in NS 50 ML IV SCH (15:45)
[2019-06-07] MEDS ORDERED: VANCOMYCIN IV PER PHARMACY MISC SCH ×2 (15:45→21:30)
[2019-06-07] MEDS ORDERED: STERILE WATER INJ. INJ ONE (16:23)
[2019-06-07] MEDS ORDERED: CATHFLO IV ONE (16:23)
[2019-06-07] MEDS ORDERED: VANCOMYCIN 2,300 MG in NS 500 ML IV ONE (17:00)
--- NOTE | 2019-06-07 17:45 | PROGRESS NOTE ---
DATE: 06/07/2019 SUBJECTIVE: Patient reports that she is feeling short of breath even at rest. She has been coughing more although her oxygen supplementation is still 2 L of oxygen by nasal cannula. OBJECTIVE: Vital Signs: Temperature 97.6 degrees, heart rate 79, respiratory rate 20, blood pressure 131/62. O2 saturation 98% on 2 L nasal cannula. General: This is a chronically ill- looking, 83-year-old female lying in bed, in no acute distress. Cardiovascular: S1, S2 heard. No murmurs, gallops, or rubs. Regular rate and rhythm. Respiratory: Rhonchi all over both pulmonary rutledge, mostly noted in both bases. Patient not using any accessory muscles or having work of breathing. Abdomen: Soft, obese, nontender to palpation. Bowel sounds present. No organomegaly. Extremities: Patient has both lower extremities with no edema noted. No clubbing or cyanosis. Peripheral pulses present in both legs. Neurologic: Patient is alert and oriented x3. Moves 4 extremities. LABORATORY DATA: White cell count 3.94, hemoglobin 9.4, hematocrit 34.8, platelets 179,000 with normal BMP except potassium 3.2 and glucose 214. IgG total is low 733 but the 2 types IgG 1, 2, 3, and 4 are within normal limits. ASSESSMENT AND PLAN: 1. Acute hypoxemic respiratory failure. 2. Left lower extremity cellulitis. 3. Right lower lobe pneumonia. 4. Obstructive sleep apnea. 5. Chronic pain. 6. Patient reports breathing feeling worse although she is still requiring 2 L of oxygen by nasal cannula. She had a CT of the chest on June 04 that shows lower lung bronchiectasis with atelectasis and likely right lower lobe infiltrates. The patient is on broad spectrum antibiotics with vancomycin seen and Zosyn that has been changed from cefepime and doxycycline. White cell count has been okay though she has not spiked any fever during the last 48 hours. PLAN: Considering worsening right lower lobe pneumonia. I prefer to go ahead and consult Pulmonary and we will transfer this patient to [facility]. We will leave to them to supplement IgG deficiency. We will continue to monitor this patient closely. cc: Yadiel Dixon MD
[2019-06-07] MEDS: OXY IR PO PRN (18:25)
[2019-06-07] MEDS: ZANAFLEX PO SCH (20:13)
[2019-06-07] MEDS ORDERED: TYLENOL PO PRN (21:19)
[2019-06-07] MEDS ORDERED: DUONEB (A & A) INH PRN (21:20)
[2019-06-07] MEDS ORDERED: ZOFRAN IV PRN (21:27)
[2019-06-07] MEDS: ZOSYN 3.375 GM in NS 50 ML IV SCH (23:43)
[2019-06-08] MEDS: DUONEB (A & A) INH SCH ×6 (04:00→23:53)
[2019-06-08] MEDS: ZOSYN 3.375 GM in NS 50 ML IV SCH ×4 (05:46→22:00)
[2019-06-08] MEDS: SYNTHROID PO SCH ×4 (05:46→07:12)
[2019-06-08] MEDS: OXY IR PO PRN ×3 (05:51→21:07)
[2019-06-08] MEDS ORDERED: LASIX PO SCH (09:00)
[2019-06-08 09:01] LABS: CALCIUM 9.4 mg/dL (8.8-10.2); POTASSIUM 3.6 mmol/L (3.5-5.1)
[2019-06-08] MEDS: DIFLUCAN PO SCH (09:28)
[2019-06-08] MEDS: LASIX PO SCH (09:28)
[2019-06-08] MEDS: KLONOPIN PO SCH ×2 (09:28→21:06)
[2019-06-08] MEDS: PAXIL PO SCH (09:28)
[2019-06-08] MEDS: MYRBETRIQ E.R. PO SCH (09:29)
[2019-06-08] MEDS: LYRICA PO SCH ×2 (09:29→21:06)
[2019-06-08] MEDS: HEPARIN SUBQ SCH ×2 (09:33→21:06)
[2019-06-08 11:09] LABS: ALLEN TEST NO; BE 8.8 mmoll (-3.0-3.0); BLOOD TYPE ARTERIAL; HCO3-(ACT) 31.7 mmoll (20.0-26.0); METHB 0.8 % (0.0-1.5); O2HB 94.3 % (95.0-99.0); PO2(98.6) 70 mmHg (60-100); SAMPLE BLOOD; THB 13.6 g/dL (11.5-17.4); pH(98.6) 7.36 (7.35-7.45)
[2019-06-08 11:11] LABS: MODALITY CANNULA
[2019-06-08 11:13] LABS: PCO2(98.6) 65 mmHg (35-45)
[2019-06-08 11:40] LABS: BASO# 0.03 X1000 (0.0-0.2); BASO% 0.7 % (0.0-0.8); EOS# 0.07 X1000 (0.0-0.7); EOS% 1.7 % (0.0-10.0); HEMOGLOBIN 9.4 g/dL (12.0-16.0); IMM GRAN# 0.02 X1000 (0.0-0.04); IMM GRAN% 0.5 % (0.0-0.5); LYMPH# 0.72 X1000 (1.2-3.4); LYMPH% 17.4 % (20.5-51.1); MCH 23.4 PG (27-31); MCHC 27.6 g/dL (33-37); MCV 84.8 FL (81-99); MONO% 9.7 % (1.7-9.3); NEUT# 2.89 X1000 (1.4-6.5); PLT 188 X1000 (130-400); RBC 4.01 XMIL (4.2-5.4); RDW 15.7 % (11.5-14.5); WBC 4.13 X1000 (4.8-10.8)
--- NOTE | 2019-06-08 13:33 | Diag Imaging Result Doc PS360 ---
EXAM: BA SWALLOW W/VIDEO SPEECH THER 06/08/2019 HISTORY: Possible aspiration TECHNIQUE: 89 images, 102 mGy, 18 seconds fluoroscopy time. COMMENT: No evidence of aspiration is demonstrated with thick or thin liquids. There is intermittent premature contraction of the cricopharyngeus. There is some patulousness of the upper two thirds of the esophagus with tertiary contractions in the lower third. IMPRESSION: Minimal cricopharyngeal achalasia. Presbyesophagus. Electronically signed by Roger Negron 06/08/2019 1:30 PM
--- NOTE | 2019-06-08 14:28 | PROGRESS NOTE ---
DATE: 06/08/2019 INTERVAL HISTORY: Patient still with pretty significant dyspnea on exertion although fairly comfortable at rest. Oxygenation a little bit improved from yesterday. Remains afebrile, no acute events overnight, no other new complaints. LABS: WBC 4.1, hemoglobin 9.4, hematocrit 34.0, platelets 188,000. ABG with pH 7.36, pCO2 65, PO2 70, O2 saturation 97% on 2 L by nasal cannula. Sodium 138, potassium 3.2, BUN 17, creatinine 1.0, glucose 102, BNP 69, lactate 1.1. VITALS: T-max 98.7 degrees, pulse 71, respirations 18, blood pressure 149/72, O2 saturation 97% on 3 L by nasal cannula . PHYSICAL EXAMINATION: General: No acute distress, obese. Vitals as above. HEENT: Normocephalic, atraumatic. Moist mucous membranes. No cervical adenopathy. Cardiovascular: Regular rate and rhythm. No murmurs noted. Pulmonary: Diffuse rales and rhonchi throughout all lung rutledge but good air entry, wet cough noted. Abdomen: Soft, nontender, nondistended. Bowel sounds positive, obese. Extremities: Peripheral pulses intact. No clubbing, cyanosis. Neurologic: Cranial nerves grossly intact. No focal deficits. Psychiatric: Normal mood and affect, awake, alert, oriented x3. ASSESSMENT AND PLAN: 1. Acute hypoxic respiratory failure, pneumonia. Patient with worsening hypoxia yesterday prompting a transfer here. Her antibiotics were transitioned from cefepime and doxy to vancomycin and Zosyn. Patient does appear to be doing a little better today. Oxygen requirements have come down some. Still with some slightly productive cough and subjective dyspnea but looks to be heading in the right direction clinically. ABG showing some CO2 retention which I suspect is Pickwickian syndrome. She is doing okay right now but if she starts decompensating again then will likely place her on BiPAP. Recommend patient get outpatient sleep study to evaluate for obstructive sleep apnea when she is out of the hospital. Continue antibiotics and monitor. 2. Anemia, no signs or symptoms of bleeding, blood count stable. Monitor labs. 3. Morbid obesity likely Pickwickian syndrome. Patient body mass index of 43.8. ABG showing CO2 retention with no decreased air entry or wheezing to suggest chronic obstructive pulmonary disease. I strongly suspect Pickwickian syndrome. Recommend sleep study to evaluate for obstructive sleep apnea as above. MTDD
--- NOTE | 2019-06-08 14:44 | PULMONOLOGY CONSULTATION ---
DATE: 06/08/2019 REQUESTING PROVIDER: Dr. Yadiel Viveros REASON FOR CONSULTATION: Worsening pneumonia, respiratory failure. HISTORY OF PRESENT ILLNESS: This is an 83-year-old female with a complicating medical history. She was initially admitted to the [facility] on 05/27/2019 with exacerbation of chronic left lower extremity cellulitis. During her hospital stay, she apparently developed progressively worsening and shortness of breath. CT thorax without contrast on 06/04/2019 revealed lower lung bronchiectasis with atelectasis and likely right lower lobe infiltrate. She was initially on the cefepime and doxycycline which have been switched to Zosyn and vancomycin since yesterday. Chest x-ray yesterday morning showed increased alveolar infiltrate left lung, so she was transferred from [facility] to our facility for pulmonary consultation. The patient currently is lying in bed on NC 3L with no acute distress noted. She appears lethargic, but easily arousable with some confusion at times. She reports worsening productive cough with some light green phlegm at times. During my encounter, she has frequent nonproductive cough with audible expiratory rattle-type respiratory noise noted. She reports some right lower quadrant tenderness which apparently is chronic with worsening at times. She reports no constipation. No chest pain, palpitations, fever, chills, nausea, pedal edema, orthopnea, paroxysmal nocturnal dyspnea, or urination discomfort. Her last bowel movement was 3 days ago, which is normal for patient. She reports chest congestion, which apparently developed during this hospital stay. She states she feels like something is struck in her throat that she cannot get it out. PAST MEDICAL HISTORY: 1. COPD on nebulizer at home as needed. The patient reports she uses the nebulizer about once a month prior to this hospitalization. She also uses oxygen at bedtime and as needed during the daytime. 2. Morbid obesity. Current BMI 43.8. 3. Pickwickian syndrome with obstructive sleep apnea. The patient reported she had a sleep study done once a long time ago and she never went back as she could not tolerate the sleep study. 4. Chronic hypercapnic hypoxemic respiratory. As mentioned above, the patient is using oxygen at nighttime and as needed during the daytime. 5. Congestive heart failure. 6. Hypothyroidism. 7. Hypertension. 8. Gastroesophageal reflux disease. 9. Restless legs syndrome. 10. Left breast cancer in 1999, status post bilateral mastectomy in 1962. 11. Recurrent left lower extremity cellulitis. 12. Chronic back pain with chronic opioid use and abuse. 13. Anxiety. 14. Noncompliance with medications and follow-up. PAST SURGICAL HISTORY: 1. Appendectomy. 2. Left ankle repair. 3. Adenoidectomy. 4. Lower back surgery. 5. Hysterectomy. 6. Right [id number] amputation. 7. Bilateral mastectomy. 8. Right shoulder surgery 9. Hemorrhoidectomy. 10. Cholecystectomy. 11. Gastric bypass surgery. SOCIAL HISTORY: Patient lives at home with her . She has no history of alcohol, tobacco, or illicit drug use. FAMILY HISTORY: Positive for diabetes, heart disease and cancer. ALLERGIES: Buprenex, Stadol, Nubain, morphine, Toradol, Cipro. REVIEW OF SYSTEMS: A 10-point review of systems was conducted and the pertinent are listed within the HPI, otherwise noncontributory physical. EXAMINATION: Vital Signs: Temperature is 98.4 degrees, blood pressure 149/72, pulse 68, respiratory rate 18, oxygen saturation 97% on nasal cannula at 3 L. General: Morbidly obese, appears lethargic, lying in bed with no acute distress noted. HEENT: Atraumatic, normocephalic. Trachea midline. Mucosa pink and moist. Pupils equal, round, reactive to light. Respiratory: Even and unlabored symmetrical excursion. Auscultation revealed bilateral expiratory wheezing, prolonged exposure expiratory phase and coarse breathing sounds bilaterally with audible expiratory rattle type noise. Cardiovascular: Regular rate and rhythm with S1 and S2 appreciated. Gastrointestinal: Soft, protuberant, right lower quadrant tenderness. Normoactive bowel sounds in all 4 quadrants. Extremities: Right [id number] amputation with a healthy healed stump. Left lower extremity trace pedal edema with some healing wound on the great toe and third toe. Neurologic: Mildly lethargic, easily arousable. Speech fluent. Answers simple questions. Follow simple commands. LAB DATA: White blood cell 4.13, hemoglobin 9.4, hematocrit 34.0, platelet 188,000. Sodium 138, potassium 3.6, chloride 97, carbon dioxide 35, BUN 17, creatinine 1.0, glucose 102. IMAGING DATA: See [facility] for chest x-ray from yesterday and chest CT on 06/04/2019. ASSESSMENT: This is an 83-year-old female with a complicated medical history including chronic obstructive pulmonary disease, morbid obesity, Pickwickian syndrome and obstructive sleep apnea, chronic hypercapnic hypoxemic respiratory failure, congestive heart failure, hypothyroidism, hypertension, gastroesophageal reflux disease, restless legs syndrome, recurrent left lower extremity cellulitis, chronic back pain anxiety and medical noncompliance. She was initially admitted to [facility] since 05/27/2019 with left lower extremity cellulitis exacerbation and acute on chronic hypoxemic hypercapnic respiratory failure. During her hospital stay, she developed progressive worsening shortness of breath. Imaging also shows worsening left lung and infiltrates. The patient was transferred to our facility since yesterday for pulmonary consultation. 1. Acute on chronic hypoxemic hypercapnic respiratory failure. 2. Recurrent left lower extremity cellulitis. 3. Chronic obstructive pulmonary disease with mild exacerbation. 4. Morbid obesity with Pickwickian syndrome and obstructive sleep apnea. 5. Medication noncompliance. 6. IgG deficiency, borderline. Aware and stay observation. PLAN: 1. Continue supplemental oxygen as needed. 2. We will check ABG and proBNP. We will order Influenza A/B screening. 3. We ordered barium swallow evaluation. 4. Continue antibiotics including Zosyn and vancomycin. 5. Continue bronchodilators and diuretics as tolerated. 6. We start Mucomyst. 7. We encourage patient to use incentive spirometer routinely with deep breathing and cough. 8. Continue appropriate GI and DVT prophylaxis. 9. Further recommendations pending hospital course. Thank you for the courtesy of this consult. Dr. Jones did the examination, evaluation, management, and orders. SARAH did the dictation for Dr. Jones according to his direction. Dictated by SARAH Velasco for Vivian Jones MD cc: SARAH Velasco MD [facility]
[2019-06-08] MEDS: MUCOMYST 20% INH SCH ×2 (15:14→19:37)
[2019-06-08] MEDS: ZANAFLEX PO SCH (21:06)
[2019-06-08] MEDS ORDERED: VANCOMYCIN 2,000 MG in NS 500 ML IV SCH (22:00)
[2019-06-08] MEDS: VANCOMYCIN 2,000 MG in NS 500 ML IV SCH (23:37)
[2019-06-09] MEDS: DUONEB (A & A) INH SCH ×6 (03:35→22:41)
[2019-06-09] MEDS: ZOSYN 3.375 GM in NS 50 ML IV SCH ×4 (04:38→22:00)
[2019-06-09 04:58] LABS: ALLEN TEST YES; BE 11.6 mmoll (-3.0-3.0); BLOOD TYPE ARTERIAL; METHB 0.1 % (0.0-1.5); O2(CT) 12.5 mL/dL (15.0-23.0); O2HB 94.8 % (95.0-99.0); PO2(98.6) 66 mmHg (60-100); SAMPLE BLOOD; THB 9.3 g/dL (11.5-17.4); pH(98.6) 7.35 (7.35-7.45)
[2019-06-09 05:01] LABS: MODALITY CANNULA; PCO2(98.6) 71 mmHg (35-45)
[2019-06-09] MEDS: SYNTHROID PO SCH ×2 (06:55)
[2019-06-09] MEDS: OXY IR PO PRN ×3 (06:55→21:03)
--- NOTE | 2019-06-09 07:07 | Diag Imaging Result Doc PS360 ---
EXAM: CHEST-PORTABLE 06/09/2019 HISTORY: pneumonia TECHNIQUE: AP portable at [id number] COMMENT: The inspiration is slightly better than on 06/07/2019. There is still some platelike atelectasis in the right middle lobe and ill-defined opacity in the left lower lobe. IMPRESSION: Bilateral atelectasis and/or pneumonia. Electronically signed by Roger Negron 06/09/2019 7:05 AM
[2019-06-09] MEDS: MUCOMYST 20% INH SCH ×2 (07:48→19:27)
[2019-06-09] MEDS: MYRBETRIQ E.R. PO SCH (08:58)
[2019-06-09] MEDS: LASIX PO SCH (08:58)
[2019-06-09] MEDS: DIFLUCAN PO SCH (08:58)
[2019-06-09] MEDS: PAXIL PO SCH (08:58)
[2019-06-09] MEDS: KLONOPIN PO SCH ×2 (09:02→21:02)
[2019-06-09] MEDS: HEPARIN SUBQ SCH ×2 (09:02→21:02)
[2019-06-09] MEDS: LYRICA PO SCH ×2 (09:02→21:03)
[2019-06-09] MEDS ORDERED: OXY IR PO PRN (09:57)
[2019-06-09 11:31] LABS: BASO# 0.04 X1000 (0.0-0.2); EOS# 0.08 X1000 (0.0-0.7); HEMATOCRIT 35.6 % (37.0-47.0); HEMOGLOBIN 9.6 g/dL (12.0-16.0); LYMPH# 0.74 X1000 (1.2-3.4); LYMPH% 18.5 % (20.5-51.1); MCV 85.2 FL (81-99); MONO# 0.32 X1000 (0.11-0.59); MPV 10.5 FL (7.4-10.4); NEUT# 2.82 X1000 (1.4-6.5); NEUT% 70.5 % (42.2-75.2); PLT 173 X1000 (130-400); RBC 4.18 XMIL (4.2-5.4); RDW 15.8 % (11.5-14.5)
[2019-06-09 13:12] LABS: CALCIUM 9.3 mg/dL (8.8-10.2); CREATININE 0.9 mg/dL (0.5-0.9); POTASSIUM 3.9 mmol/L (3.5-5.1)
--- NOTE | 2019-06-09 15:11 | PROGRESS NOTE ---
DATE: 06/09/2019 INTERVAL HISTORY: Patient with some improvement in dyspnea. Afebrile overnight. Oxygenation looks a little better. No acute events. REVIEW OF SYSTEMS: Twelve point review of systems negative except as per interval history. LABS: WBCs 4, hemoglobin 9.6, hematocrit 35.6, platelets 173,000. ABG with pH 7.35, pCO2 of 71, PO2 of 66, O2 saturation 99% on 2 L by nasal cannula. Sodium 143, potassium 3.9, BUN 17, creatinine 0.9, glucose 114. IMAGING: Chest x-ray with approximately stable bilateral infiltrates. VITALS: T-max 98.5 degrees, pulse 81, respirations 18, blood pressure 122/78, O2 saturation 96% on 3 L by nasal cannula. PHYSICAL EXAMINATION: General: No acute distress. Vitals: As above. HEENT: Normocephalic, atraumatic. Moist mucous membranes. No cervical adenopathy. Cardiovascular: Regular rate and rhythm. No murmurs noted. Pulmonary: Still with some fairly diffuse rales and rhonchi but improved from previous. Still with good air entry. Abdomen: Soft, nontender, nondistended. Obese. Bowel sounds positive. Extremities: Peripheral pulses intact. No clubbing or cyanosis. Neurologic: Cranial nerves grossly intact. No focal deficits identified. Psychiatric: Normal mood and affect. Awake, alert, oriented x3. ASSESSMENT AND PLAN: 1. Acute on likely chronic hypoxic and chronic hypercapnic respiratory failure, pneumonia. Patient with worsening hypoxia a couple days ago, prompting transfer from [place] to here. Her antibiotics were transitioned from cefepime and doxycycline to vancomycin and Zosyn. The patient does appear to have improved since then. Oxygen requirements are down and overall oxygen saturations are improved. Continue antibiotics for now but if she continues to improve, then may be able to transition to oral antibiotic and consider discharge tomorrow, possibly doxycycline. ABG is still showing some CO2 retention but no wheezing or decreased air entry to suggest chronic obstructive pulmonary disease exacerbation. Suspect this is chronic pickwickian. The patient does have oxygen at home but has historically used it only at night. 2. Anemia. No signs or symptoms of bleeding. Blood counts are stable. Monitor labs. 3. Morbid obesity and pickwickian syndrome. Patient's body mass index is 44.7. ABG as above, showing likely chronic CO2 retention. We recommended that the patient get a sleep study to evaluate for obstructive sleep apnea after discharge as well. 4. Hypothyroidism. Continue home Synthroid. 5. Chronic obstructive pulmonary disease. No sign of exacerbation at this time. 6. Gastroesophageal reflux disease. Continue proton pump inhibitor. 7. Chronic pain. Continue home oxycodone.
--- NOTE | 2019-06-09 17:02 | PROVIDER PROGRESS NOTE ---
Progress Note Dr. Jones Progress Note/Pulmonary and or critical care Subjective: The patient is lying in bed with no acute distress noted. She appears drowsy. She just had a bedside bath done. She states the cough is getting slightly better. She still has chest congestion, audible rattle-type breathing noise and RLQ tenderness. Objective: Vital Signs: T 97.9, BP 130/54, NE 67, RR 20, and SaO2 100% on NC 3L. Physical Examination: General: Morbidly obese. Chronically ill appearing. Lying in bed with no acute distress noted. HEENT: Normocephalic. Trachea midline. Pupils equal round reactive to light. Chest: Even and unlabored. No increased work of breathing. Audible expiratory rattle-type breathing noise. Symmetrical excursion. Mildly coarse breathing sounds bilaterally with occasional rhonchi. No wheezing noted. CVS: Regular rate and rhythm with S1 and S2 appreciated. Abdomen: Normoactive bowel sounds present. Obese. Soft. RLQ tenderness. Extremities: LLE trace edema. No cyanosis. No clubbing. 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 Neuro: Drowsy. Answer simple questions. Follow simple commands. Labs and Radiology: Laboratory Results 06/09/19 06/09/19 06/09/19 04:47 10:40 10:40 WBC RBC Hgb Hct MCV MCH MCHC RDW Std Deviation Plt Count MPV Immature Gran % (Auto) Neut % (Auto) Lymph % (Auto) Erath % (Auto) Eos % (Auto) Baso % (Auto) Immature Gran # (Auto) Neut # (Auto) Lymph # (Auto) Erath # (Auto) Eos # (Auto) Baso # (Auto) Specimen Type ARTERIAL Sample Site R RADIAL pH 7.35 pCO2 71 H* pO2 66 HCO3 34.0 H Base Excess 11.6 H Oxyhemoglobin 94.8 L ABG O2 Sat (Calculated) 12.5 L ABG O2 Saturation 99.0 ABG Carboxyhemoglobin 4.20 H ABG Methemoglobin 0.1 Robert Test YES A-a O2 Difference 45.0 Total Hemoglobin 9.3 L Lactate 0.90 Liter Flow 2.0 Blood Gas Modality CANNULA FiO2 % 28.0 Sodium 143 Potassium 3.9 Chloride 98 Carbon Dioxide 34 Anion Gap 11 BUN 17 Creatinine 0.9 Estimated GFR/1.73 m2 60 BUN/Creatinine Ratio 19 Glucose 114 H Calculated Osmolality 287 Calcium 9.3 Ghd-T-Hplpsuxcbwe Pept 51 06/09/19 10:40 WBC 4.00 L RBC 4.18 L Hgb 9.6 L Hct 35.6 L MCV 85.2 MCH 23.0 L MCHC 27.0 L RDW Std Deviation 15.8 H Plt Count 173 MPV 10.5 H Immature Gran % (Auto) 0.0 Neut % (Auto) 70.5 Lymph % (Auto) 18.5 L Erath % (Auto) 8.0 Eos % (Auto) 2.0 Baso % (Auto) 1.0 H Immature Gran # (Auto) 0.00 Neut # (Auto) 2.82 Lymph # (Auto) 0.74 L Erath # (Auto) 0.32 Eos # (Auto) 0.08 Baso # (Auto) 0.04 Specimen Type Sample Site pH pCO2 pO2 HCO3 Base Excess Oxyhemoglobin ABG O2 Sat (Calculated) ABG O2 Saturation ABG Carboxyhemoglobin ABG Methemoglobin Robert Test A-a O2 Difference Total Hemoglobin Lactate Liter Flow Blood Gas Modality FiO2 % Sodium Potassium Chloride Carbon Dioxide Anion Gap BUN Creatinine Estimated GFR/1.73 m2 BUN/Creatinine Ratio Glucose Calculated Osmolality Calcium Iyf-U-Faclbldxqox Pept Assessment: Acute on chronic respiratory failure, hypoxemic and hypercapnic. Worsening hypercapnia today. Possible RLL pneumonia with lower lung bronchiectasis with atelectasis. CXR today shows bilateral atelectasis +/- pneumonia. Recurrent LLE cellulitis. COPD with no exacerbation noted today. Morbid obesity with Pickwickian syndrome and SISI. IgG deficiency, borderline. Aware and stay observation. Medical noncompliance. Plan: We start cycling NC and BiPAP. We titrate supplemental oxygen and BiPAP setting to patients needs per clinical protocols. We are cutting down clonazepam and Oxy Ir. Continue antibiotics including Zosyn and Vancomycin. Continue bronchodilators, diuretics as tolerated and Mucomyst. Continue GI and DVT prophylaxis. Continue CPT. Encourage to use incentive spirometer routinely with deep breathing and coughing.
[2019-06-09] MEDS: ZANAFLEX PO SCH (21:03)
[2019-06-10] MEDS: DUONEB (A & A) INH SCH ×2 (03:04→07:41)
[2019-06-10] MEDS: ZOSYN 3.375 GM in NS 50 ML IV SCH (03:45)
[2019-06-10] MEDS: VANCOMYCIN 2,000 MG in NS 500 ML IV SCH (03:57)
[2019-06-10 05:08] LABS: ALLEN TEST YES; BE 9.6 mmoll (-3.0-3.0); BLOOD TYPE ARTERIAL; HCO3-(ACT) 32.3 mmoll (20.0-26.0); METHB 1.1 % (0.0-1.5); O2(CT) 17.7 mL/dL (15.0-23.0); O2HB 93.7 % (95.0-99.0); PO2(98.6) 73 mmHg (60-100); SAMPLE BLOOD; SAO2 96.9 % (95.0-100.0); SRATE 10 BPM; THB 13.4 g/dL (11.5-17.4); pH(98.6) 7.33 (7.35-7.45)
[2019-06-10 05:12] LABS: MODALITY BI PAP; PCO2(98.6) 73 mmHg (35-45)
[2019-06-10] MEDS: OXY IR PO PRN (05:12)
[2019-06-10] MEDS: SYNTHROID PO SCH ×2 (06:15)
[2019-06-10 07:38] VITALS: BP 108/72
[2019-06-10] MEDS: MUCOMYST 20% INH SCH (07:41)
[2019-06-10] MEDS: KLONOPIN PO SCH (08:31)
[2019-06-10] MEDS: MYRBETRIQ E.R. PO SCH (08:31)
[2019-06-10] MEDS: LYRICA PO SCH (08:31)
[2019-06-10] MEDS: DIFLUCAN PO SCH (08:31)
[2019-06-10] MEDS: LASIX PO SCH (08:31)
[2019-06-10] MEDS: PAXIL PO SCH (08:31)
[2019-06-10] MEDS: HEPARIN SUBQ SCH (08:32)
[2019-06-10 08:52] LABS: BASO# 0.04 X1000 (0.0-0.2); BASO% 0.7 % (0.0-0.8); EOS# 0.09 X1000 (0.0-0.7); EOS% 1.6 % (0.0-10.0); HEMATOCRIT 36.9 % (37.0-47.0); HEMOGLOBIN 9.9 g/dL (12.0-16.0); IMM GRAN# 0.02 X1000 (0.0-0.04); IMM GRAN% 0.4 % (0.0-0.5); LYMPH# 1.04 X1000 (1.2-3.4); LYMPH% 18.7 % (20.5-51.1); MCH 22.9 PG (27-31); MCHC 26.8 g/dL (33-37); MCV 85.4 FL (81-99); MONO# 0.39 X1000 (0.11-0.59); MPV 10.3 FL (7.4-10.4); NEUT# 3.99 X1000 (1.4-6.5); NEUT% 71.6 % (42.2-75.2); PLT 175 X1000 (130-400); RBC 4.32 XMIL (4.2-5.4); RDW 15.7 % (11.5-14.5); WBC 5.57 X1000 (4.8-10.8)
[2019-06-10 09:00] LABS: CALCIUM 9.3 mg/dL (8.8-10.2); CREATININE 0.9 mg/dL (0.5-0.9); POTASSIUM 3.9 mmol/L (3.5-5.1)
--- NOTE | 2019-06-10 15:13 | DISCHARGE SUMMARY ---
ADMISSION DATE: 05/27/2019 DISCHARGE DATE: 06/10/2019 PRIMARY CARE PROVIDER: Kayode Go MD CONSULTATIONS: Dr. Vivian Jones of Pulmonology. PERTINENT PROCEDURES: Chest x-ray, no pneumonia or congestive heart failure. Left foot x-ray, progression and severe chronic changes. Chest CT, lower lobe bronchial stasis with atelectasis and likely right lower lobe infiltrate. Modified barium, speech, minimal cricopharyngeal achalasia, presbyesophagus. DISCHARGE DIAGNOSES: 1. Acute on chronic hypoxemic hypercapnic respiratory failure with worsening hypoxia, was transferred from [facility] to [facility] for Pulmonology consult with a right lower lobe pneumonia. She was cycled on nasal cannula and BiPAP. Pulmonology also cut down on her clonazepam and OxyIR. 2. Right lower lobe pneumonia. The patient is on broad-spectrum antibiotics. 3. Recurrent left lower extremity cellulitis, on IV antibiotics. 4. Chronic obstructive pulmonary disease. 5. Morbid obesity with Pickwickian syndrome and obstructive sleep apnea. The patient has known noncompliance. BMI of 44.7. 6. Hypothyroidism. 7. Gastroesophageal reflux disease. 8. Anemia stable. HOSPITAL COURSE: Briefly, Ms. 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 They were unable to initially obtain IV access, so the patient was initially given IM Rocephin and started on p.o. Zyvox until IV access could be obtained. She still showed acute on chronic hypoxemic hypercapnic respiratory failure. Refused to wear BiPAP. She did develop a right lower lobe pneumonia. Her antibiotics were switched appropriately and she had worsening of her right lower lobe pneumonia. She was transferred to [facility] for Pulmonology consult where they continue to cycle BiPAP and nasal cannula. They as well decreased her anxiety and pain medication and she will be discharged back home today with home health services with [facility]. VITAL SIGNS: At time of discharge, temperature is 97.7 degrees, heart rate 59, respirations 18, blood pressure 108/72, O2 is 96% on 3 L nasal cannula. DISCHARGE DIET: Regular. DISCHARGE MEDICATIONS: 1. Zanaflex 4 mg p.o. at bedtime. 2. Arthrotec 50 mg to 200 mcg 1 each p.o. b.i.d. 3. Klonopin 1 mg p.o. b.i.d. 4. Lasix 20 mg p.o. b.i.d. 5. Synthroid 125 mcg p.o. daily. 6. Lyrica 75 mg p.o. b.i.d. 7. Myrbetriq 50 mg p.o. q.a.m. 8. Oxy IR 15 mg p.o. t.i.d. p.r.n. 9. Paxil 30 mg p.o. daily. 10. Cefditoren pivoxil mL 400 mg p.o. b.i.d. 11. ProAir inhaler 2 puffs inhaled q.4 hours p.r.n. FOLLOWUP: Ms. Godinez is being discharged home with home health with [facility]. She is to follow up with her primary care provider, Dr. Kayode Go in 1 week as well as continue to follow pulmonology. She is take all medications as prescribed as well as wear her home O2. She has been educated on medical noncompliance. She can return to the ED or call 911 for any worsening of symptoms. Dictated by SARAH Zamora for Yadiel Dixon MD Addendum: Patient seen and examined by myself. Agree with SARAH note. It reflects my assessment and plan. Patient is being discharged in stable condition and will be seen by PCP in a week. cc: MD Kayode Quinn MD Mamoun I. Najjar, MD MTDD
== END 2019-06-10 11:43 | disposition home health service (06) | DRG 602 ==
LOC: P.ED 15:04 → P.MEDSURG 18:13 → SUATTDRO 18:13 → 3N 06-07 21:02
PROVIDERS: ATTEND Internal Medicine

== ENCOUNTER 2019-07-23 17:38 | Inpatient (IN) ==
[2019-07-23] MEDS ORDERED: COMBIVENT RESPIMAT INHALER INH ONE (17:44)
[2019-07-23] MEDS ORDERED: VANCOMYCIN 1 GM/NS 1 GM/250 ML IVPB IV ONE (17:48)
[2019-07-23] MEDS ORDERED: ZOSYN 4.5 GM in NS 100 ML IV ONE (17:48)
[2019-07-23] MEDS ORDERED: LASIX IV ONE (17:48)
[2019-07-23] MEDS ORDERED: NS 1,000 ML IV ONE (17:48)
[2019-07-23] MEDS ORDERED: NORFLEX IV ONE (17:57)
--- NOTE | 2019-07-23 18:34 | PROVIDER DOCUMENTATION ---
This chart was entered by Candice Bradshaw Scribe, acting as scribe for Lonny Peña MD. HPI-General Adult - General Source: patient, EMS - History of Present Illness -Gen Adult Nature of Presenting Problems: pt is a 83 yr old female presenting via EMS with 1 day complaint of fever/chills, headache, body aches and weakness. pt reports onset this AM, was being seen for same at [facility] and sent here due to low o2 sats, EMS reports 70 RA on their arrival, 85 on 2lpm nasal canula, pt is on PRN home o2, has chronic COPD and CHF. pt admits temp of 101.2 at home Location of Pain/Injury: reports: generalized Pain Radiation: reports: no radiation Quality of Pain: reports: aching Severity: reports: moderate Onset/Duration: reports: this morning Timing: reports: still present Context/Activities at Onset: reports: rest Modifying Factors: improves with: nothing Associated Symptoms: reports: cough, EENT symptoms, fatigue, fever/chills, headaches, muscle aches, shortness of breath, weakness. denies: chest pain, dizziness, sinus congestion/drainage, nausea Similar Symptoms Previously?: Yes Recently seen or treated by another doctor?: Yes <Lonny Peña - Last Filed: 07/23/19 18:33> <Petra Burciaga - Last Filed: 07/24/19 00:41> - General Stated Complaint: FEVER, WEAKNESS, COUGH Time Seen by Provider: 07/23/19 17:40 Allergies/Adverse Reactions: Patient Allergies Allergy/AdvReac Type Severity Reaction Status Date / Time buprenorphine HCl * Allergy Severe Unknown Verified 07/23/19 19:14 [From Buprenex] butorphanol tartrate * Allergy Severe Unknown Verified 07/23/19 19:14 [From Stadol] nalbuphine HCl * Allergy Severe Unknown Verified 07/23/19 19:14 [From Nubain] hydromorphone HCl * Allergy Intermediate HIVES Verified 07/23/19 19:14 [From Dilaudid] ciprofloxacin [From Cipro] Allergy Unknown Unknown Verified 07/23/19 19:14 ciprofloxacin HCl * Allergy Unknown Unknown Verified 07/23/19 19:14 [From Cipro] morphine Allergy Unknown Unknown Verified 07/23/19 19:14 buprenorphine [From Buprenex] Allergy Unknown Verified 07/23/19 19:14 butorphanol [From Stadol] Allergy Unknown Verified 07/23/19 19:14 hydromorphone [From Dilaudid] Allergy HIVES Verified 07/23/19 19:14 ketorolac [From Toradol] Allergy Unknown Verified 07/23/19 19:14 nalbuphine [From Nubain] Allergy Unknown Verified 07/23/19 19:14 ketorolac tromethamine * AdvReac Mild Unknown Verified 07/23/19 19:14 [From Toradol] Home Medications: Home Medication List Medication Instructions Recorded Confirmed Last Taken Type Diclofenac Sodium/Misoprostol 1 each PO BID 05/21/17 07/23/19 03/27/19 20:00 H istory [Arthrotec 50 mg-200 Mcg Tab] Furosemide [Lasix] 20 mg PO BID 07/05/17 07/23/19 03/27/19 08:00 History 20 mg Mirabegron [Myrbetriq] 50 mg PO QAM 07/05/17 07/23/19 03/29/19 08:00 History Paroxetine [Paxil] 30 mg PO DAILY 11/19/17 07/23/19 03/29/19 08:00 History Clonazepam [Klonopin] 1 mg PO BID 01/20/19 07/23/19 03/28/19 20:00 History Levothyroxine Sodium 125 mcg PO DAILY@0700 03/30/19 07/23/19 Unknown History Oxycodone I.r. [Oxy Ir] 15 mg PO TID PRN 03/30/19 07/23/19 Unknown History Pregabalin [Lyrica] 75 mg PO BID 05/28/19 07/23/19 Unknown History Tizanidine [Zanaflex] 4 mg PO QHS 05/28/19 07/23/19 Unknown History Albuterol Sulfate [Proair Hfa] 2 puff INHALATION Q4H PRN PRN #1 06/10/19 07/23/19 Unknown Rx hfa.aer.ad Cefditoren Pivoxil 400 mg PO BID #20 tab 06/10/19 07/23/19 Unknown Rx Review of Systems - Adult - REVIEW OF SYSTEMS - ADULT Constitutional: reports: chills, fever, fatique Eyes: reports: no symptoms reported Ears, Nose, Mouth & Throat: denies: ear pain, sinus problem, throat pain Cardiovascular: denies: chest pain, palpitations, syncope Respiratory: reports: cough, shortness of breath. denies: wheezing Gastrointestinal: denies: abdominal pain, diarrhea, nausea, vomiting Genitourinary: reports: no symptoms reported Musculoskeletal: reports: muscle aches Integumentary: reports: no symptoms reported Neurological: reports: headache/migraines. denies: dizziness/vertigo, syncope Psychiatric: reports: no symptoms reported Endocrine: reports: no symptoms reported Hematologic/Lymphatic: reports: no symptoms reported Allergic/Immunologic: reports: no symptoms reported All Other Systems: Reviewed and Negative <Lonny Peña - Last Filed: 07/23/19 18:33> Past History - Adult - PAST MEDICAL HISTORY-ADULT Review of Records: reports: Old Records Reviewed, Nursing Assessment Review, Medications Reviewed, Social history reviewed & non-contributory. Major Childhood Illnesses: reports: denies history Cardiovascular: reports: CHF, HTN Respiratory: reports: pneumonia Gastrointestinal: reports: GERD Obstetrical/Gynecological: reports: other (breast cancer) Genitourinary: reports: denies history Musculoskeletal: reports: cancer (sarcoma right leg), chronic pain Neurological: reports: denies history Psychiatric: reports: anxiety Endocrine/Immune: reports: thyroid disorder Other Conditions: reports: MRSA - PRIOR SURGERIES/PROCEDURES Surgical/Procedure History: reports: cholecystectomy, hysterectomy, orthopedic (extremity) (R AKA, L foot, R shoulder), joint replacement (TKR), breast (mastectomy) - IMMUNIZATION STATUS Childhood Immunizations: See Nurse Assessment Flu Vaccine: See Nurse Assessment - FAMILY HISTORY Family History: reviewed, not pertinent - SOCIAL HISTORY Living Situation: family <Lonny Peña - Last Filed: 07/23/19 18:33> Physical Exam-General - PHYSICAL EXAM-ADULT Initial Vital Signs Reviewed: Yes - CONSTITUTIONAL General Appearance: alert, no apparent distress, obese - EYES Eyes: PERRL/EOMI - HEAD, EARS, NOSE, MOUTH & THROAT HENMT: normocephalic/atraumatic, moist mucous membranes, normal ENT inspection - NECK Neck: non-tender, full range of motion, supple, normal inspection - RESPIRATORY Respiratory: chest non-tender, lungs clear, normal breath sounds - CARDIOVASCULAR Cardiovascular: normal peripheral pulses, regular rate, rhythm, no edema - GASTROINTESTINAL (ABDOMEN) Abdominal Exam: normal bowel sounds, non tender, soft - LYMPHATIC Lymphatic: no adenopathy - MUSCULOSKELETAL Back Exam: normal inspection Extremity: erythema, pedal edema, other (RAKA, significant swelling to left leg- oozing) <Lonny Peña - Last Filed: 07/23/19 18:33> Progress - CHANGE OF SHIFT REPORT (ED Provider) 1 Report Given and Care Transferred to:: Dr. Burciaga Time of Transfer: 19:00 Items Pending: Labs, XRAY Results <Lonny Peña - Last Filed: 07/23/19 18:33> - PLAN OF CARE/RESULTS Progress/Plan/Lab Results: Vital Signs - 8 hr 07/23/19 17:38 07/23/19 19:25 Temperature 98.7 F 98.4 F Pulse Rate 82 Respiratory Rate 18 Blood Pressure 158/87 O2 Sat by Pulse Oximetry 98 07/23/19 18:40 Influenza Screen - Final Nasopharyngeal 07/23/19 18:43 Group A Strep Rapid Antigen - Final Throat Laboratory Results - last 24 hr 07/23/19 07/23/19 07/23/19 18:40 19:10 19:10 WBC RBC Hgb Hct MCV MCH MCHC RDW Std Deviation Plt Count MPV Neut % (Auto) Lymph % (Auto) [place] % (Auto) Eos % (Auto) Baso % (Auto) Neut # (Auto) Lymph # (Auto) [place] # (Auto) Eos # (Auto) Baso # (Auto) PT INR PTT (Actin FS) Specimen Type ARTERIAL Sample Site R RADIAL pH 7.34 L pCO2 60 H* pO2 73 HCO3 29.1 H Base Excess 5.4 H Oxyhemoglobin 94.4 L ABG O2 Sat (Calculated) 13.2 L ABG O2 Saturation 97.6 ABG Carboxyhemoglobin 2.40 ABG Methemoglobin 0.9 Robert Test YES A-a O2 Difference 52.0 Total Hemoglobin 9.9 L Lactate 0.60 Liter Flow 2.0 Blood Gas Modality CANNULA FiO2 % 28.0 Sodium 140 Potassium 4.0 Chloride 101 Carbon Dioxide 29 Anion Gap 10 BUN 10 Creatinine 0.7 Estimated GFR/1.73 m2 > 60 BUN/Creatinine Ratio 14 Glucose 106 H Calculated Osmolality 279 Calcium 9.1 Total Bilirubin 0.39 AST 11 ALT 6 L Alkaline Phosphatase 90 Creatine Kinase 24 Troponin T High Sens Laq-G-Kqgbkorromo Pept Total Protein 5.9 L Albumin 3.4 L Globulin 2.5 Albumin/Globulin Ratio 1.4 Plasma Lactate 0.4 L Urine Source Urine Color Urine Turbidity Urine pH Ur Specific [place] Urine Protein Ur Glucose (Stick) Ur Ketones (Stick) Urine Blood Urine Nitrite Urine Bilirubin Urobilinogen Dipstick Urine Leukocytes Urine WBC (Auto) Urine RBC (Auto) U Epithel Cells (Auto) Urine Bacteria (Auto) 07/23/19 07/23/19 07/23/19 19:10 19:10 19:10 WBC 4.34 L RBC 4.14 L Hgb 9.8 L Hct 34.1 L MCV 82.4 MCH 23.7 L MCHC 28.7 L RDW Std Deviation 16.2 H Plt Count 157 MPV 11.7 H Neut % (Auto) 73.0 Lymph % (Auto) 13.4 L [place] % (Auto) 12.2 H Eos % (Auto) 0.7 Baso % (Auto) 0.7 Neut # (Auto) 3.17 Lymph # (Auto) 0.58 L [place] # (Auto) 0.53 Eos # (Auto) 0.03 Baso # (Auto) 0.03 PT INR PTT (Actin FS) Specimen Type Sample Site pH pCO2 pO2 HCO3 Base Excess Oxyhemoglobin ABG O2 Sat (Calculated) ABG O2 Saturation ABG Carboxyhemoglobin ABG Methemoglobin Robert Test A-a O2 Difference Total Hemoglobin Lactate Liter Flow Blood Gas Modality FiO2 % Sodium Potassium Chloride Carbon Dioxide Anion Gap BUN Creatinine Estimated GFR/1.73 m2 BUN/Creatinine Ratio Glucose Calculated Osmolality Calcium Total Bilirubin AST ALT Alkaline Phosphatase Creatine Kinase Troponin T High Sens 22 H Eig-A-Zymdaiuimtk Pept 583 H Total Protein Albumin Globulin Albumin/Globulin Ratio Plasma Lactate Urine Source Urine Color Urine Turbidity Urine pH Ur Specific [place] Urine Protein Ur Glucose (Stick) Ur Ketones (Stick) Urine Blood Urine Nitrite Urine Bilirubin Urobilinogen Dipstick Urine Leukocytes Urine WBC (Auto) Urine RBC (Auto) U Epithel Cells (Auto) Urine Bacteria (Auto) 07/23/19 07/23/19 19:10 20:05 WBC RBC Hgb Hct MCV MCH MCHC RDW Std Deviation Plt Count MPV Neut % (Auto) Lymph % (Auto) [place] % (Auto) Eos % (Auto) Baso % (Auto) Neut # (Auto) Lymph # (Auto) [place] # (Auto) Eos # (Auto) Baso # (Auto) PT 13.7 INR 1.04 PTT (Actin FS) 26.3 Specimen Type Sample Site pH pCO2 pO2 HCO3 Base Excess Oxyhemoglobin ABG O2 Sat (Calculated) ABG O2 Saturation ABG Carboxyhemoglobin ABG Methemoglobin Robert Test A-a O2 Difference Total Hemoglobin Lactate Liter Flow Blood Gas Modality FiO2 % Sodium Potassium Chloride Carbon Dioxide Anion Gap BUN Creatinine Estimated GFR/1.73 m2 BUN/Creatinine Ratio Glucose Calculated Osmolality Calcium Total Bilirubin AST ALT Alkaline Phosphatase Creatine Kinase Troponin T High Sens Jls-O-Aepdxlmuxhy Pept Total Protein Albumin Globulin Albumin/Globulin Ratio Plasma Lactate Urine Source CATH Urine Color YELLOW Urine Turbidity HAZY Urine pH 6.0 Ur Specific [place] 1.013 Urine Protein TRACE A Ur Glucose (Stick) NEGATIVE Ur Ketones (Stick) NEGATIVE Urine Blood SMALL A Urine Nitrite POSITIVE A Urine Bilirubin NEGATIVE Urobilinogen Dipstick NORMAL Urine Leukocytes MODERATE A Urine WBC (Auto) 20-40 A Urine RBC (Auto) <10 U Epithel Cells (Auto) <10 Urine Bacteria (Auto) 2+ Orders Category Date Time Status Cardiac Monitoring DIRECTED Care 07/23/19 17:45 Active Murray Cath Insertion ORDERED Care 07/23/19 17:48 Active Isolation Precautions Setup NOW Care 07/23/19 20:16 Active Oxygen Therapy- ED Nursing DIRECTED Care 07/23/19 17:45 Active Saline Loc NOW Care 07/23/19 17:45 Active CHEST-PORTABLE [RAD] Stat Exams 07/23/19 21:26 Completed ABG [RESP] Routine Lab 07/23/19 18:40 Completed BLOOD CULTURE [BLDCUL] Stat Lab 07/23/19 19:10 Results CBC WITH ELECTRONIC DIFF [HEME] Stat Lab 07/23/19 19:10 Completed CK PROFILE [SP CHEM] Stat Lab 07/23/19 19:10 Completed COMPREHENSIVE METABOLIC PANEL [CHEM] Stat Lab 07/23/19 19:10 Completed DIRECT STREP Stat Lab 07/23/19 18:43 Completed INFLUENZA SCREEN A/B Stat Lab 07/23/19 18:40 Completed LACTATE, PLASMA [CHEM] Stat Lab 07/23/19 19:10 Completed AU GRES COVID19 [AU GRES] Routine Lab 07/23/19 19:19 Received PRO B-NATRIURETIC PEPTIDE Stat Lab 07/23/19 19:10 Completed PROTIME WITH INR [COAG] Stat Lab 07/23/19 19:10 Completed PTT [COAG] Stat Lab 07/23/19 19:10 Completed TROPONIN T HIGH SENSITIVITY Stat Lab 07/23/19 19:10 Completed URINALYSIS W/POSS RFLX CULT [URINALYSIS] Stat Lab 07/23/19 20:05 Completed URINE CULTURE [RM] Routine Lab 07/23/19 20:05 Received 0.9% Sodium Chloride Inj [Ns] 1,000 ml Med 07/23/19 17:48 Discontinued IV 999 mls/hr Furosemide [Lasix] Med 07/23/19 17:48 Discontinued 80 mg IV NOW ONE Ipratropium/Albuterol INH [Combivent Respimat Inhaler] Med 07/23/19 17:44 Discontinued 1 puff INH NOW ONE Ondansetron [Zofran] Med 07/23/19 22:06 Discontinued 4 mg IV NOW ONE Orphenadrine [Norflex] Med 07/23/19 17:57 Discontinued 60 mg IV NOW ONE Piperacillin/Tazobactam [Zosyn] 4.5 gm Med 07/23/19 17:48 Discontinued 0.9% Sodium Chloride Inj [Ns] 100 ml IV NOW Vancomycin 1 gm/Ns Med 07/23/19 17:48 Discontinued 1 gm in 250 ml IV NOW CP/SOB/Palp >45 yrs of Age Stat Oth 07/23/19 17:44 Ordered MDI Treatments Stat Oth 07/23/19 17:45 Active EKG [EKG] Stat Ther 07/23/19 17:45 Ordered Patient signed out to me pending labs and final dispo. She does not have a WBC and is afebrile upon arrival here. She report subjective fevers at home and was hypoxic. She was given vanc and Zosyn as her CXR is showing PNA. She also has a UTI which will be covered by this. Unknown if any COVID contacts but swab is pending. She was hypoxic upon EMS arrival but has been remaining more stable on NC in the ED> SPoke to Dr Milan, occupational health [facility] ccepted patient for admission. Further orders to be placed by their team. Result Diagrams: 07/23/19 19:10 07/23/19 19:10 - EKG 1 Time of EKG reading by physician:: 22:49 EKG Read and Signed by:: Petra Burciaga EKG Interpretation (*Must complete 3 of following elements*): Abnormal Rate: 113 Rhythm: Sinus tachycardia Medon: normal QRS: normal Prior EKG Comparison: unchanged from prior Comments: poor quality, + artifact, baseline wander - XRAY 1 XRAY Study: Chest (EXAM: CHEST-PORTABLE HISTORY: SOB, Subj fever TECHNIQUE: Single view COMPARISON: 06/09/2019 FINDINGS: The patient is rotated to the right. Poor inspiratory effort. The heart is enlarged. There are increased in terstitial markings in the left lung base. No pleural effusions identified. IMPRESSION: Left basilar infiltrate. This is smaller than on the prior exam. Electronically signed by Quique Valentine 07/23/2019 10:02 PM) <Petra Burciaga - Last Filed: 07/24/19 00:41> Departure <Lonny Peña - Last Filed: 07/23/19 18:33> - Departure Date of Disposition Decision: 07/23/19 Time of Disposition Decision: 21:33 Certified Medical Emergency: Emergent - Critical Care Note This patient required my direct & personal management of CC.: Yes Total Time (mins): 35 Critical Care Statement: This patient required my direct personal management to treat or rule out processes, the absence of which, could potentiallly result in sudden, clinically significant life or limb threatening deterioration. <Petra Burciaga - Last Filed: 07/24/19 00:41> - Departure DIAGNOSIS: Pneumonia, Chronic respiratory failure with hypoxia, On home oxygen therapy, UTI (urinary tract infection) Disposition: ADMITTED INPATIENT 09 Condition: Stable Attestation - Physician/ AIME Attestation Patient care was provided by Advanced Practice Provider:: No The physician spent face to face time with patient:: Yes Advanced Practice Provider documentation review:: Supervising physician onsite and consulted in the evaluation and care of this patient. The physician did have a face to face encounter with the patient. <Petra Burciaga - Last Filed: 07/24/19 00:41> This chart was documented by the indicated scribe, (Candice Bradshaw, [place]) and accurately reflects the services I performed and decisions made by , Lonny Peña MD, as attested by the provider's signature.
[2019-07-23 18:47] LABS: ALLEN TEST YES; BE 5.4 mmoll (-3.0-3.0); BLOOD TYPE ARTERIAL; HCO3-(ACT) 29.1 mmoll (20.0-26.0); METHB 0.9 % (0.0-1.5); O2(CT) 13.2 mL/dL (15.0-23.0); O2HB 94.4 % (95.0-99.0); PO2(98.6) 73 mmHg (60-100); SAMPLE BLOOD; SAO2 97.6 % (95.0-100.0); THB 9.9 g/dL (11.5-17.4); pH(98.6) 7.34 (7.35-7.45)
[2019-07-23 18:50] LABS: MODALITY CANNULA; PCO2(98.6) 60 mmHg (35-45)
[2019-07-23 19:42] LABS: INR 1.04; PROTIME 13.7 Seconds (11.0-16.0)
[2019-07-23 19:43] LABS: PTT 26.3 Seconds (22.3-41.8)
[2019-07-23 19:59] LABS: AGAP 10; ALB/GLOB RATIO 1.4; ALBUMIN 3.4 g/dL (3.5-5.0); ALKALINE PHOSPHATASE 90 U/L (32-104); BUN 10 mg/dL (8-22); CALCIUM 9.1 mg/dL (8.8-10.2); CHLORIDE 101 mmol/L (98-107); CK PROFILE 24 U/L (24-173); COSMO 279; CREATININE 0.7 mg/dL (0.5-0.9); ESTIMATED GFR > 60; GLUCOSE 106 mg/dL (70-104); GOT 11 U/L (10-30); GPT 6 U/L (10-36); SODIUM 140 mmol/L (136-145); TCO2 29 mmol/L (25-35); TOTAL BILIRUBIN 0.39 mg/dL (0.20-1.00); TOTAL PROTEIN 5.9 g/dL (6.3-8.3)
[2019-07-23 20:20] LABS: BASO# 0.03 X1000 (0.0-0.2); BASO% 0.7 % (0.0-0.8); EOS# 0.03 X1000 (0.0-0.7); EOS% 0.7 % (0.0-10.0); HEMATOCRIT 34.1 % (37.0-47.0); HEMOGLOBIN 9.8 g/dL (12.0-16.0); LYMPH# 0.58 X1000 (1.2-3.4); LYMPH% 13.4 % (20.5-51.1); MCH 23.7 PG (27-31); MCHC 28.7 g/dL (33-37); MCV 82.4 FL (81-99); MONO# 0.53 X1000 (0.11-0.59); MONO% 12.2 % (1.7-9.3); MPV 11.7 FL (7.4-10.4); NEUT# 3.17 X1000 (1.4-6.5); PLT 157 X1000 (130-400); RBC 4.14 XMIL (4.2-5.4); RDW 16.2 % (11.5-14.5); WBC 4.34 X1000 (4.8-10.8)
[2019-07-23 20:24] LABS: URINE SOURCE CATH
[2019-07-23 20:41] LABS: BILIRUBIN URINE NEGATIVE (NEGATIVE); BLOOD URINE SMALL (NEGATIVE); COLOR YELLOW; GLUCOSE URINE NEGATIVE (NEGATIVE); KETONE URINE NEGATIVE (NEGATIVE); LEUKOCYTES URINE MODERATE (NEGATIVE); NITRITE URINE POSITIVE (NEGATIVE); PROTEIN URINE TRACE mg/dL (NEGATIVE); SP GRAVITY URINE 1.013; TURBIDITY URINE HAZY (CLEAR); UROBILINOGEN URINE NORMAL (NORMAL)
[2019-07-23 20:42] LABS: UR EPITHELIAL CELLS <10 /HPF (<10); URINE BACTERIA 2+ /HPF; URINE RBC <10 /HPF (<10); URINE WBC 20-40 /HPF (<10)
--- NOTE | 2019-07-23 22:05 | Diag Imaging Result Doc PS360 ---
EXAM: CHEST-PORTABLE HISTORY: SOB, Subj fever TECHNIQUE: Single view COMPARISON: 06/09/2019 FINDINGS: The patient is rotated to the right. Poor inspiratory effort. The heart is enlarged. There are increased interstitial markings in the left lung base. No pleural effusions identified. IMPRESSION: Left basilar infiltrate. This is smaller than on the prior exam. Electronically signed by Quique Valentine 07/23/2019 10:02 PM
[2019-07-23] MEDS ORDERED: ZOFRAN IV ONE (22:06)
--- NOTE | 2019-07-23 23:26 | HISTORY AND PHYSICAL ---
PRIMARY CARE PROVIDER: Kayode Go MD CHIEF COMPLAINT: Shortness of breath, fever. HISTORY OF PRESENT ILLNESS: Ms. Godinez is an 83-year-old female well known to our service, with past medical history of COPD, morbid obesity, pickwickian syndrome, obstructive sleep apnea, chronic hypercapnic hypoxemic respiratory failure, congestive heart failure, hypothyroidism, hypertension, GERD, restless legs syndrome, right bwjzc-tku-rxdh amputation, recurrent left lower extremity cellulitis, chronic opiate use and abuse, anxiety, and noncompliance with medication and followups. She presented to the ED with a one-day history of fever, chills, shortness of breath, felt like she might have a urinary tract infection. She was also having some nausea and retching upon examination. She denies being around any sick contacts. She will be admitted for left lower lobe pneumonia, COPD exacerbation, xmygt-xk-gtwhddj hypoxemic hypercapnic respiratory failure as well as urinary tract infection, and a COVID- 19 rule-out. PAST MEDICAL HISTORY: Per HPI. PAST SURGICAL HISTORY: Appendectomy, left ankle repair, adenoidectomy, lower back surgery, hysterectomy, right nnegv-oyh-ewcs amputation, bilateral mastectomy, right shoulder surgery, hemorrhoidectomy. SOCIAL HISTORY: She lives with her . No tobacco, alcohol or illicit drug use. FAMILY HISTORY: Positive for diabetes and heart disease. ALLERGIES: Buprenex, Stadol, Nubain, morphine, Toradol, Cipro. REVIEW OF SYSTEMS: Completed and negative except for those mentioned in HPI. PHYSICAL EXAMINATION: VITAL SIGNS: Temperature is 98.7 degrees, heart rate 82, respirations 18, blood pressure 158/87, O2 is 98%. GENERAL: Ms. Godinez is an 83-year-old female who is ill appearing, slouched over in the bed, actively having nausea and retching. HEENT: Atraumatic, normocephalic. PERRL. NECK: Supple. Trachea midline. CARDIOVASCULAR: S1, S2 appreciated. LUNG: Sounds hard to assess secondary to the patient's retching. GASTROINTESTINAL: Obese, soft, nontender, nondistended. Positive bowel sounds x4 quadrants. EXTREMITIES: Right vozay-oll-cqjs amputation. Left lower extremity: Trace pitting edema. There is some redness; however, compared to previous admissions it is much better. NEUROLOGIC: She is awake. She is actively having some nausea and some retching. She is answering most questions when she can. She is appropriate. No focal deficits noted. DIAGNOSTIC DATA: Chest x-ray showed a left basilar infiltrate, smaller than on prior exam. LABORATORY DATA: White count of 4, hemoglobin and hematocrit of 9 and 34, platelet count of 157,000. PH is 7.34, pCO2 is 60, O2 is 73. Sodium 140, potassium 4, BUN 10, creatinine 0.7, blood glucose of 106. Troponin 22. ProBNP 583. Urine: Bacteria 2+, moderate leukocytes, positive for nitrites. ASSESSMENT AND PLAN: 1. Zdxia-an-xsqtwnc hypoxemic hypercapnic respiratory failure. We will continue on supplemental oxygen. 2. Mild chronic obstructive pulmonary disease exacerbation. We will continue with albuterol inhalers scheduled and p.r.n., aggressive pulmonary toilet. 3. Left lower lobe infiltrate. Continue with broad-spectrum antibiotics. 4. Urinary tract infection. Continue antibiotics. Await urine culture. 5. Pickwickian syndrome and obstructive sleep apnea. 6. Chronic left lower extremity cellulitis. Aware. Much improved from her last admission. 7. Known medical noncompliance. 8. Chronic pain syndrome. 9. Further recommendation to follow physician evaluation, laboratory and diagnostic data. 10. Nausea with active retching. We will continue with p.r.n. Zofrnoman. Dictated by SARAH Zamora for Beena Milan MD cc: MD Kayode Boo MD Independent exam and assessment performed by pr and agree with above management. Modified bronchodilator treatment and this will be further modified once COVID has been ruled out. No need for BIPAP, pt is compensated. MTDD
--- NOTE | 2019-07-23 23:57 | EKG Report ---
Test Performed on : 07/23/2019 10:45:01 PM Test Reason : SOB Blood Pressure : / mmHG Vent. Rate : 113 BPM Atrial Rate : 113 BPM P-R Int : 146 ms QRS Dur : 072 ms QT Int : 298 ms P-R-T Axes : 081 046 056 degrees QTc Int : 408 ms Undetermined rhythm Otherwise normal ECG When compared with ECG of 29-MAR-2019 19:08, Current undetermined rhythm precludes rhythm comparison, needs review Unconfirmed Result
[2019-07-24] MEDS ORDERED: OXY IR PO PRN (01:07)
[2019-07-24] MEDS ORDERED: VANCOMYCIN IV PER PHARMACY MISC SCH (01:07)
[2019-07-24] MEDS ORDERED: VENTOLIN HFA INH PRN (01:07)
[2019-07-24] MEDS ORDERED: ZOSYN 3.375 GM in NS 50 ML IV SCH (01:07)
[2019-07-24] MEDS ORDERED: TYLENOL PR PRN (01:31)
[2019-07-24] MEDS ORDERED: VANCOMYCIN 1,250 MG in NS 250 ML IV ONE (02:00)
[2019-07-24] MEDS ORDERED: VENTOLIN HFA INH SCH (03:00)
[2019-07-24] MEDS: VENTOLIN HFA INH SCH ×4 (03:38→22:20)
[2019-07-24 04:48] LABS: BASO# 0.04 X1000 (0.0-0.2); BASO% 0.6 % (0.0-0.8); EOS# 0.01 X1000 (0.0-0.7); EOS% 0.1 % (0.0-10.0); HEMATOCRIT 37.6 % (37.0-47.0); HEMOGLOBIN 10.9 g/dL (12.0-16.0); IMM GRAN# 0.02 X1000 (0.0-0.04); IMM GRAN% 0.3 % (0.0-0.5); LYMPH# 0.38 X1000 (1.2-3.4); LYMPH% 5.4 % (20.5-51.1); MCH 23.9 PG (27-31); MCV 82.5 FL (81-99); MONO# 0.65 X1000 (0.11-0.59); MONO% 9.2 % (1.7-9.3); MPV 10.7 FL (7.4-10.4); NEUT% 84.4 % (42.2-75.2); PLT 146 X1000 (130-400); RBC 4.56 XMIL (4.2-5.4); RDW 16.5 % (11.5-14.5)
[2019-07-24 05:07] LABS: AGAP 15; ALB/GLOB RATIO 1.1; ALBUMIN 3.4 g/dL (3.5-5.0); ALKALINE PHOSPHATASE 96 U/L (32-104); BUN 13 mg/dL (8-22); CHLORIDE 98 mmol/L (98-107); COSMO 287; CREATININE 0.8 mg/dL (0.5-0.9); ESTIMATED GFR > 60; GLUCOSE 126 mg/dL (70-104); GOT 18 U/L (10-30); GPT 7 U/L (10-36); SODIUM 143 mmol/L (136-145); TCO2 30 mmol/L (25-35); TOTAL BILIRUBIN 0.64 mg/dL (0.20-1.00); TOTAL PROTEIN 6.5 g/dL (6.3-8.3)
[2019-07-24 05:38] LABS: ALLEN TEST YES; BE 6.5 mmoll (-3.0-3.0); BLOOD TYPE ARTERIAL; METHB 1.1 % (0.0-1.5); O2(CT) 15.4 mL/dL (15.0-23.0); O2HB 97.2 % (95.0-99.0); PO2(98.6) 213 mmHg (60-100); SAMPLE BLOOD; SAO2 99.7 % (95.0-100.0); THB 10.9 g/dL (11.5-17.4); pH(98.6) 7.39 (7.35-7.45)
[2019-07-24 05:40] LABS: MODALITY BI PAP; PCO2(98.6) 54 mmHg (35-45)
[2019-07-24] MEDS: SYNTHROID PO SCH (06:49)
[2019-07-24] MEDS: ZOFRAN IV PRN (06:49)
[2019-07-24] MEDS ORDERED: NS 500 ML IV SCH (08:15)
--- NOTE | 2019-07-24 08:38 | PROGRESS NOTE ---
DATE: 07/24/2019 INTERVAL HISTORY: Ms. Godinez was admitted for sepsis and acute hypoxic, hypercapnic respiratory failure due to left lower lobe pneumonia. She, in fact, received intravenous Lasix yesterday after receiving intravenous fluids for acute pulmonary edema as well. Two of her blood cultures are growing gram-negative rods. No other acute overnight events. SUBJECTIVE: Ms. Godinez is feeling tired. She denies any chest pain, shortness of breath. She denies any cough, though during examination, she was coughing. She states she has been having fevers and low oxygen level. REVIEW OF SYSTEMS: Negative for nausea. Negative for vomiting. Negative for abdominal pain. VITAL SIGNS: Currently, temperature 100.3 degrees, pulse 118, respiratory rate 26, blood pressure 168/90, she is saturating 98% on Venturi mask. Input and output suggests -4.1 L. LABORATORY DATA: Suggestive of WBC 7.1, hemoglobin 10.9, platelet 146,000. Her pH is 7.39, pCO2 54, her oxygen level is 213 on BiPAP. Her potassium is 3, BUN 13, creatinine 0.8. MICROBIOLOGY: Blood cultures are growing gram-negative rods. Urine culture is pending. IMAGING: Chest x-ray on presentation has suspected left lower lobe pneumonia. Electrocardiogram had undetermined rhythm, for which a repeat EKG was ordered. ASSESSMENT AND PLAN: 1. Sepsis due to gram-negative rods. Potential sources include recurrent extended-spectrum beta- lactamase-positive Klebsiella urinary tract infection, left lower lobe pneumonia. I will change antibiotics to intravenous meropenem from intravenous Zosyn considering history of extended-spectrum rzza-mgpmwvoci-putwdydx infections. Continue intravenous vancomycin until I get the final blood culture results and get a repeat set of blood cultures in the next 24 hours. Continue Murray catheter with close input and output monitoring. Her lactate was 0.4 on presentation. 2. Acute hypoxic, hypercapnic respiratory failure on top of chronic hypoxic, hypercapnic respiratory failure with history of chronic obstructive pulmonary disease, obesity hypoventilation syndrome and obstructive sleep apnea. The patient claims that she only uses oxygen when needed. She could not provide me history regarding home CPAP or BiPAP. I will continue oxygen through nasal cannula to maintain saturation more than 92%, albuterol sulfate inhaler, and will follow up with oxygen levels. The patient was counseled about being compliant with home oxygen. Follow up Coronavirus Disease 2019 test results to rule out Coronavirus Disease 2019 considering her respiratory distress, age and fever on presentation, though she denies any known exposure to patients with Coronavirus Disease 2019. 3. Hypokalemia because of Lasix use. Replete with intravenous and oral potassium and follow up with potassium as well as magnesium levels tomorrow. 4. History of chronic obstructive pulmonary disease with mild acute exacerbation. Continue inhaled bronchodilators. Considering her ongoing sepsis, I would avoid intravenous steroids. 5. Others. Chronic left lower extremity venous stasis, medical noncompliance, chronic pain syndrome are currently stable. I will resume her Lasix once her sepsis is well controlled. DISPOSITION: I will continue to monitor the patient inside PVC unit. PHYSICAL EXAMINATION: General: Morbidly obese, not in any acute distress. HEENT: Oral cavity is dry. Lungs: Air entry bilaterally equal. Mild end-expiratory wheezes. No rhonchi or crackles. Cardiovascular: S1, S2 normal. Tachycardic. No murmur or gallop. Abdomen: Obese, soft, nontender. Extremities: She has left lower extremity edema extending up to thigh level with chronic lymphedema-related changes with stasis dermatitis. She has a right above-knee amputation. Genitourinary: She has a urine catheter. Neurologic: She is drowsy but arousable. She answers most questions appropriately. She is able to raise both upper extremities above ground level and the left lower extremity above ground level as well. She is oriented x3. TIME SPENT: 35 minutes. cc: Keith Lizarraga MD
[2019-07-24] MEDS: KLOR-CON PO SCH ×2 (08:56→11:53)
[2019-07-24] MEDS: MERREM 1 GM in NS 50 ML IV SCH ×3 (08:56→16:12)
[2019-07-24] MEDS: PAXIL PO SCH (08:56)
[2019-07-24] MEDS: POTASSIUM CHLORIDE 20 MEQ/SWI 20 MEQ/100 ML IVPB IV SCH ×2 (08:56→11:53)
[2019-07-24] MEDS ORDERED: [UNRECOGNIZED DRUG - OTHER] PO SCH (09:00)
[2019-07-24] MEDS ORDERED: LYRICA PO SCH (09:00)
[2019-07-24] MEDS ORDERED: LASIX PO SCH (09:00)
[2019-07-24] MEDS ORDERED: KLONOPIN PO SCH (09:00)
[2019-07-24] MEDS ORDERED: MISOPROSTOL PO SCH (09:00)
[2019-07-24] MEDS ORDERED: DICLOFENAC PO SCH (09:00)
[2019-07-24] MEDS ORDERED: MYRBETRIQ E.R. PO SCH (09:00)
--- NOTE | 2019-07-24 11:17 | SEPSIS: TISSUE PERFUSION ASSMT ---
Sepsis: Tissue Perfusion Assmt - Physical Exam Assessment Date: 07/24/19 Time Assessment Initialized: 07:00 Vital Signs: Last Vital Signs Temp 99.4 F 07/24/19 08:00 Pulse 83 07/24/19 10:12 Resp 19 07/24/19 10:12 BP 133/64 07/24/19 08:00 Pulse Ox 99 07/24/19 10:12 Height 5 ft 5 in Weight 110.268 kg Lung Sounds: lungs clear Heart Sounds: Regular Capillary Refill Time: Less Than 2 Seconds Peripheral Pulse Evaluation: radial (R): 2+, radial (L): 2+, dorsalis-pedis (R): 1+, 0, dorsalis-pedis (L): 1+, posterior tibialis (R): 0, posterior tibialis (L): 1+ Skin Exam: pink - Alternative Fluid Bolus Bolus Option: Alternative Fluid Resuscitation Bolus for morbidly obese patients with a BMI >30, Refer to [facility] Body Weight Chart for Reference. Is patient's BMI >30?: Yes - Impression Impression: Tissue Perfusion Adequate - Plan Comment: 07/24/19 12:35 Considering her volume overload, additional IV fluid has not been ordered.
[2019-07-24] MEDS: TYLENOL PO PRN ×2 (12:04→16:08)
--- NOTE | 2019-07-24 16:51 | EKG Report ---
Test Performed on : 07/24/2019 09:59:50 AM Test Reason : Follow up heart rhythm Blood Pressure : / mmHG Vent. Rate : 077 BPM Atrial Rate : 077 BPM P-R Int : 162 ms QRS Dur : 074 ms QT Int : 398 ms P-R-T Axes : 060 023 033 degrees QTc Int : 450 ms Normal sinus rhythm. Normal ECG When compared with ECG of 23-JUL-2019 22:45, (Unconfirmed) Previous ECG has undetermined rhythm, needs review Confirmed by Mireille BUCIO, Robert Reece ([id number]) on 07/26/2019 9:25:04 AM
[2019-07-24] MEDS ORDERED: ZANAFLEX PO SCH (21:00)
--- NOTE | 2019-07-24 22:27 | PULMONOLOGY CONSULTATION ---
DATE: 07/24/2019 REQUESTING PROVIDER: SARAH Mathis REASON FOR CONSULTATION: COVID-19 test patient, pneumonia. HISTORY OF PRESENT ILLNESS: This is an 83-year-old female who presented to the ER yesterday via EMS with 1 day of fever, chills, headache, body aches and weakness. Initial workup in the ER revealed eeuwk-lq-izshbkn hypoxic hypercapnic respiratory failure, mild COPD exacerbation, left lower lobe infiltrate, UTI and nausea with active retching. The patient has been admitted to the [facility] for further evaluation and management. COVID-19 test was done, with results pending at this time. She has been put on BiPAP overnight, with improved oxygenation. Currently she is on nasal cannula at 3 L and tolerates well. Antibiotics including meropenem and vancomycin have been started since admission. The patient currently is lying in bed with no acute distress noted. She appears lethargic, but arousable. After I wake her up, she opens her eyes, smiling at me, then soon she falls back to sleep. She does not answer my questions or follow any simple commands. All information is obtained from the clinical documentation. PAST MEDICAL HISTORY: 1. COPD on nebulizer at home as needed. 2. Morbid obesity. Current BMI 40.5. 3. Pickwickian syndrome with obstructive sleep apnea. The patient had a sleep study once, but she could not tolerate it. 4. Chronic hypercapnic hypoxemic respiratory failure. The patient uses oxygen at home as needed during the daytime and continuously during the nighttime. 5. Congestive heart failure. 6. Hypothyroidism. 7. Gastroesophageal reflux disease. 8. Hypertension. 9. Restless legs syndrome. 10. History of left breast cancer, status post bilateral mastectomy. 11. Recurrent left lower extremity cellulitis. 12. Chronic back pain with chronic opioid use and abuse. 13. Anxiety. 14. Noncompliance with medication and followup. 15. Recent hospitalization between 05/27/19-06/10/19 with acute on chronic respiratory failure secondary to right lower lobe pneumonia and recurrent left lower extremity cellulitis. PAST SURGICAL HISTORY: 1. Appendectomy. 2. Left ankle repair. 3. Adenoidectomy. 4. Low back surgery. 5. Hysterectomy. 6. 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 7. Bilateral mastectomy. 8. Right shoulder surgery. 9. Hemorrhoidectomy. SOCIAL HISTORY: The patient lives at home with her family. She has no history of tobacco, alcohol or illicit drug use. FAMILY HISTORY: Positive for diabetes and heart disease. ALLERGIES: Buprenex, Stadol, Nubain, Dilaudid, Cipro, morphine, Toradol. REVIEW OF SYSTEMS: Difficult to be obtained. PHYSICAL EXAMINATION: Vital Signs: Temperature 102.4 degrees, blood pressure 141/79, pulse 86, respiratory rate 22, oxygen saturation 98% on nasal cannula at 3 L. General: Morbidly obese, sleeping in bed at this time with no acute distress noted. HEENT: Atraumatic, normocephalic. Trachea midline. Mucosa pink and moist. Respiratory: Even and unlabored. Symmetrical excursion. Significant diminished breathing sounds globally, but no wheezing or crackle noted at this time. Cardiovascular: Regular rate and rhythm with S1 and S2 appreciated. Gastrointestinal: Soft, obese, nontender. Normoactive bowel sounds in all 4 quadrants. Extremities: Right bybum-drn-xdlm amputation with healed stump. Left lower extremity trace edema. No cyanosis. Neurologic: The patient is sleeping at this time, but arousable; however, when she wakes up she opens her eyes, smiling at me, but did not answer any questions or follow any simple commands. She will quickly follow back to sleep. LABORATORY DATA: White blood cells 7.10, hemoglobin 10.9, hematocrit 37.6, platelets 146,000. Sodium 143, potassium 3.0, chloride 98, carbon dioxide 40, BUN 14, creatinine 0.8, glucose 126. ABG: PH 7.39, pCO2 is 54, pO2 is 214, HCO3 is 40.0, base excess 6.5, and oxyhemoglobin 97.2 on BiPAP with FiO2 of 80% and pressure 12/6. DIAGNOSTIC DATA: Chest x-ray on 07/23/2019 showed left basilar infiltrate. ASSESSMENT: This is an 83-year-old female with a complicated medical history including chronic obstructive pulmonary disease, morbid obesity, pickwickian syndrome, obstructive sleep apnea, chronic hypercapnic hypoxemic respiratory failure, congestive heart failure, hypothyroidism, hypertension, gastroesophageal reflux disease, restless legs syndrome, recurrent left lower extremity cellulitis, chronic back pain, anxiety and medication noncompliance. She has been admitted today with afmco-sd-rajrmga respiratory failure with mild chronic obstructive pulmonary disease exacerbation, left lower lobe infiltrate and urinary tract infection. 1. Acute-on- chronic respiratory failure, improving since admission. Patient currently on nasal cannula at 3 L and tolerates well. PCO2 has been improved with bilevel positive airway pressure use. 2. Sepsis. The patient has persistent fever since admission, with the highest at 102.4 degrees this morning at 11:56. The patient also show some tachycardia and tachypnea. Her blood pressure is relatively stable at this time, with no hypotension noted. 3. Possible pneumonia. Initial chest x-ray showed left basilar infiltrate. COVID-19 was tested, with results pending at this time. 4. Urinary tract infection. Urine culture collected on 07/23/2019 growing gram- negative rods at this time. PLAN: 1. Continue supplemental oxygen with BiPAP at bedtime and as needed. We will titrate supplemental oxygen and BiPAP settings to the patient's needs per clinical protocols. We will monitor the patient's response closely. We will follow up ABG and chest x- ray tomorrow. 2. We await the results of COVID-19, sputum culture, urine culture and blood culture. 3. Antibiotics including meropenem and vancomycin have started. We will monitor the patient's clinical and lab response closely. 4. Bronchodilators, Ventolin inhaler has been initiated, has been scheduled q.6 hours. 5. Further recommendations pending hospital course. Thank you for the courtesy of this consult. Total evaluation time in minutes 34. Dictated by SARAH Velasco for Vivian Jones MD cc: SARAH Velasco MD [facility]
[2019-07-25] MEDS: MERREM 1 GM in NS 50 ML IV SCH ×4 (00:45→16:04)
[2019-07-25] MEDS: VENTOLIN HFA INH SCH ×4 (03:49→23:10)
[2019-07-25 05:25] LABS: ALLEN TEST YES; BE 3.2 mmoll (-3.0-3.0); BLOOD TYPE ARTERIAL; HCO3-(ACT) 27.4 mmoll (20.0-26.0); METHB 0.9 % (0.0-1.5); O2(CT) 18.4 mL/dL (15.0-23.0); O2HB 95.3 % (95.0-99.0); PO2(98.6) 85 mmHg (60-100); SAMPLE BLOOD; SAO2 98.3 % (95.0-100.0); THB 13.7 g/dL (11.5-17.4); pH(98.6) 7.36 (7.35-7.45)
[2019-07-25 05:34] LABS: PCO2(98.6) 53 mmHg (35-45)
[2019-07-25 05:35] LABS: MODALITY CANNULA
[2019-07-25] MEDS: SYNTHROID PO SCH (06:14)
[2019-07-25] MEDS: ZOFRAN IV PRN ×3 (06:14→20:59)
[2019-07-25] MEDS: PAXIL PO SCH (08:02)
[2019-07-25] MEDS ORDERED: OXY IR PO PRN (08:14)
--- NOTE | 2019-07-25 08:28 | Diag Imaging Result Doc PS360 ---
EXAM: CHEST-PORTABLE - 07/25/2019 HISTORY: COPD ?PNA TECHNIQUE: Portable chest COMPARISON: 07/23/2019 FINDINGS: The patient is rotated towards the right. There is stable mild cardiomegaly. There is infiltrate at the left base which is decreased. There remainder of the lungs appear clear. There is a possible tiny left pleural effusion. There is no evidence of pneumothorax. IMPRESSION: Infiltrate at left base, which has decreased compared to prior. Electronically signed by iRtchie Andrew 07/25/2019 8:26 AM
--- NOTE | 2019-07-25 09:08 | PROGRESS NOTE ---
DATE: 07/25/2019 INTERVAL HISTORY: Two of her blood cultures were growing gram-negative rods. Her urine culture is also growing gram-negative rods. She had a fever of 102.4. She was saturating well on nasal cannula. Her labs were pending. Urine culture was growing Escherichia coli, which was sensitive to first generation cephalosporins, though the blood culture results were pending. SUBJECTIVE: Ms. Godinez is feeling better. She requests me to start her back on her home oxycodone that she takes for generalized body aches as well as back pain. She denies any chest pain, shortness of breath, or cough. She denies any nausea or vomiting. She continues to have poor appetite. REVIEW OF SYSTEMS: Negative for abdominal pain. Negative for burning while passing urine. Negative for diarrhea or constipation. VITALS: Currently, temperature 99.6 degrees, pulse 88, respiratory rate 18, blood pressure 160/89. She is saturating 95% on 3 L nasal cannula. PHYSICAL EXAMINATION: Morbidly obese. Not in any acute distress. Oral cavity is moist. No pallor, cyanosis, clubbing, or icterus. Lungs: Air entry bilaterally equal. No wheeze or rhonchi. Mild crackles at bases. S1, S2 normal. Not tachycardic. No murmur, rub, or gallop. Abdomen: Obese, soft, nontender. She has left lower extremity lymphedema extending up to thigh level. She has stasis dermatitis changes in the left leg. She has right above- knee amputation. She is alert and oriented x3. She is able to move both upper extremities and left lower extremity. She is able to adjust her position on commands. Input and output positive 450 mL. LABS: No CBC today. ABG has 7.36 of pH, pCO2 of 53. No BMP today. MICROBIOLOGY: Urine culture is growing Escherichia coli. Blood cultures are positive for gram- negative rods. ASSESSMENT AND PLAN: 1. Sepsis due to gram-negative shazia. Potential sources could be urinary tract infection with or without left lower lobe pneumonia. The patient denies any cough or shortness of breath. Continue intravenous meropenem for history of extended-spectrum B-lactamase until I get final blood culture results. Repeat blood cultures have been ordered. I will also continue intravenous vancomycin. Her lactate was normal. I will remove the Murray catheter in the next 24 hours. 2. Acute hypoxic, hypercapnic respiratory failure on chronic hypoxic, hypercapnic respiratory failure with history of chronic obstructive pulmonary disease, obesity hypoventilation syndrome, and obstructive sleep apnea. Continue to cycle BiPAP and nasal cannula to maintain saturation more than 92%, albuterol sulfate inhalers, follow up Covid-19 results. Patient was counseled about using oxygen on a continuous basis at home. 3. Hypokalemia because of Lasix use. Her BMP is pending. I will replete it as necessary. 4. History of chronic obstructive pulmonary disease with mild acute exacerbation. Continue inhaled albuterol and add inhaled Symbicort. Currently, she is not exhibiting any wheezing or worsening of her respiratory distress. 5. Others. Her chronic left lower extremity venous stasis, medical noncompliance, chronic pain syndrome are currently stable. Since she is hemodynamically stable, I will start her on her home Lasix. I will also start her on a lidocaine patch with oxycodone as needed for back pain. 6. Disposition. I will continue to monitor the patient inside the PVC unit. She was allowed to ask questions. Her questions have been satisfactorily answered. ADDENDUM: Patient had lost IV access. Multiple attempts to secure IV access failed. So, I consulted a PICC team considering she has ongoing sepsis and needs IV antibiotics. I will order Levaquin orally if we can't get IV access to cover until we secure IV access. cc: Keith Lizarraga MD [facility]
[2019-07-25] MEDS: LIDODERM TOP SCH (09:09)
[2019-07-25 09:14] LABS: AGAP 14; BUN 14 mg/dL (8-22); CALCIUM 9.2 mg/dL (8.8-10.2); CHLORIDE 93 mmol/L (98-107); COSMO 263; CREATININE 0.6 mg/dL (0.5-0.9); ESTIMATED GFR > 60; GLUCOSE 95 mg/dL (70-104); MAGNESIUM 1.7 mg/dL (1.5-2.7); SODIUM 131 mmol/L (136-145); TCO2 24 mmol/L (25-35)
[2019-07-25] MEDS ORDERED: VANCOMYCIN 1,950 MG in NS 500 ML IV SCH (14:00)
--- NOTE | 2019-07-25 15:44 | PROVIDER PROGRESS NOTE ---
Progress Note Dr. Jones Progress Note/Pulmonary and or critical care Subjective: Patient is lying in bed on NC 2L with no acute distress noted. She is awake and alert. Staff from ER steps in and trys to put IV in. Patient becomes anxious. She starts complaining of back pain and asking for Oxycodone. Input was appreciated from Dr. Lizarraga and other teams on the case. Objective: Vital Signs: T 98.9 (T-max 101.1 in last 24 hours), MO 87, RR 16, BP 144/95 and SaO2 96% on NC 2L. Physical Examination: General: Chronically ill appearing. Morbidly obese. Lying in bed with no acute distress noted. HEENT: Atraumatic. Normocephalic. Trachea midline. Mucosa pink and moist. Respiratory: Even and unlabored. Symmetrical excursion. Significantly diminished breathing sounds bilaterally. Cardiovascular: S1 and S2 appreciated. Gastrointestinal: Soft. Obese. Nontender. Normoactive bowel sounds in all 4 quadrants. Extremities: RLE [place] with healed stump. LLE trace edema. No clubbing or cyanosis noted. Neurologic: A/O x3. Speech fluent. Follow commands. Labs and Radiology: Laboratory Results 07/25/19 07/25/19 05:15 08:18 Specimen Type ARTERIAL Sample Site R RADIAL pH 7.36 pCO2 53 H* pO2 85 HCO3 27.4 H Base Excess 3.2 H Oxyhemoglobin 95.3 ABG O2 Sat (Calculated) 18.4 ABG O2 Saturation 98.3 ABG Carboxyhemoglobin 2.10 ABG Methemoglobin 0.9 Robert Test YES A-a O2 Difference 77.0 Total Hemoglobin 13.7 Lactate 1.40 Liter Flow 3.0 Blood Gas Modality CANNULA FiO2 % 32.0 Sodium 131 L Potassium 4.0 D Chloride 93 L Carbon Dioxide 24 L Anion Gap 14 BUN 14 Creatinine 0.6 Estimated GFR/1.73 m2 > 60 BUN/Creatinine Ratio 23 Glucose 95 Calculated Osmolality 263 Calcium 9.2 Magnesium 1.7 Assessment: Acute on chronic hypoxemic hypercapnic respiratory failure. Improved. Sepsis with high fever, tachycardia and tachypnea secondary to UTI. Blood cultures on 07/23/19 grow E. Coli. Repeat blood cultures pending. Possible pneumonia. COVID-19 tested with results pending. CXR this morning shows infiltrate at left base, which has decreased compared to prior. UTI. Urine culture collected on 07/23/19 grows E. Coli. Plan: Continue supplemental oxygen with BiPAP at bedtime and as needed. We titrated oxygen and BiPAP settings to patients needs per clinical protocols. We will monitor patients response closely and adjust accordingly. We follow up ABG and CXR tomorrow. Continue droplet isolation as we await the results of COVID-19 test. Sputum culture pending. Continue antibiotics including meropenem and Vancomycin. We will monitor patients clinical and lab response closely. Continue bronchodilators. Diuresis as tolerated.
[2019-07-25] MEDS: TYLENOL PO PRN ×2 (16:09→16:22)
[2019-07-25] MEDS: OXY IR PO PRN (16:54)
[2019-07-25] MEDS ORDERED: LEVAQUIN PO ONE (22:00)
[2019-07-25] MEDS ORDERED: ZANAFLEX PO ONE (22:09)
[2019-07-25] MEDS: SYMBICORT 80/4.5 MICROGM INHALER INH SCH (23:09)
[2019-07-26] MEDS: MERREM 1 GM in NS 50 ML IV SCH ×2 (00:38→08:50)
[2019-07-26] MEDS: VENTOLIN HFA INH SCH ×4 (03:57→22:10)
[2019-07-26] MEDS: SYNTHROID PO SCH (06:08)
[2019-07-26] MEDS: OXY IR PO PRN ×2 (06:09→17:53)
[2019-07-26] MEDS: LIDODERM TOP SCH (08:47)
[2019-07-26] MEDS: PAXIL PO SCH (08:50)
[2019-07-26] MEDS: LASIX PO SCH ×2 (08:51→21:50)
[2019-07-26 09:27] LABS: AGAP 10; BUN 10 mg/dL (8-22); CALCIUM 9.3 mg/dL (8.8-10.2); CHLORIDE 99 mmol/L (98-107); COSMO 271; CREATININE 0.5 mg/dL (0.5-0.9); ESTIMATED GFR > 60; GLUCOSE 104 mg/dL (70-104); POTASSIUM 4.1 mmol/L (3.5-5.1); SODIUM 136 mmol/L (136-145); TCO2 27 mmol/L (25-35)
[2019-07-26] MEDS: SYMBICORT 80/4.5 MICROGM INHALER INH SCH ×2 (11:34→22:10)
[2019-07-26] MEDS ORDERED: ROCEPHIN 1 GM in NS 50 ML IV SCH (12:45)
[2019-07-26] MEDS ORDERED: ZOFRAN ODT PO PRN (13:59)
--- NOTE | 2019-07-26 14:31 | PROGRESS NOTE ---
DATE: 07/26/2019 SUBJECTIVE: Patient has no major complaints. She is complaining though that she is not getting her Lyrica. OBJECTIVE: Vital Signs: Blood pressure is 148/85, heart rate 74, respiratory rate 18, temperature 98.6 degrees, she is 94 on 2 L. Cardiovascular: Regular rate and rhythm. Pulmonary: Bilateral breath sounds. Clear to auscultation. GI: Soft, nontender, nondistended. Bowel sounds are positive. LABORATORY: Basic was normal. PROBLEM LIST: 1. She has an Escherichia coli bacteremia associated with a urinary tract infection. It is pansensitive though, so I initially switch her to Rocephin. I do not think she needs Merrem because it is not ESBL. I do not think she needs vancomycin right now either, although there is some concern over treating pneumonia. But clinically she has improved. Her repeat blood cultures are negative thus far. She does not want any further IV. When discussed to get another IV she said she just wanted to and did want to participate. We switched her to p.o. Levaquin and I think we are going to go ahead and leave her on that. It has 100% bioavailability. It is a secondary infection not a primary bacteremia. So we will follow. 2. Acute hypoxic hypercapnic respiratory failure, chronic obstructive pulmonary disease, obesity hypoventilation. She is on BiPAP. We are still waiting for Coronavirus Disease 2019, although reportedly it was negative, but I do not see that available as a test; I do not have it back yet. DISPOSITION: I think she is improving. I think we could probably let her go home on Levaquin for 2 weeks and should be okay from that standpoint. cc: Otoniel Lopez MD
[2019-07-26] MEDS: LYRICA PO SCH ×2 (14:35→21:50)
--- NOTE | 2019-07-26 16:07 | PROVIDER PROGRESS NOTE ---
Progress Note Dr. Jones Progress Note/Pulmonary and or critical care Subjective: Patient is lying in bed on NC 3L with no acute distress noted. She is talking with RN at the bedside at this time about changing her code statue to DNR 1. Apparently she loss her EJ IV at an earlier time and she refuses to start any IV now. She is calm, pleasant and cooperative. Input was appreciated from Dr. Lopez and other teams on the case. Objective: Vital Signs: T 98.2 (T-max 100 in last 24 hours), KS 70, RR 18, BP 128/74 and SaO2 94% on NC 2L. Physical Examination: General: Calm, pleasant and cooperative. Chronically ill appearing. Morbidly obese. Lying in bed with no acute distress noted. HEENT: Atraumatic. Normocephalic. Trachea midline. Mucosa pink and moist. Respiratory: Even and unlabored. Symmetrical excursion. Significantly diminished breathing sounds bilaterally. Cardiovascular: S1 and S2 appreciated. Gastrointestinal: Soft. Obese. Nontender. Normoactive bowel sounds in all 4 quadrants. Extremities: RLE [place] with healed stump. LLE trace edema. No clubbing or cyanosis noted. Neurologic: A/O x3. Speech fluent. Follow commands. Labs and Radiology: Laboratory Results 07/23/19 07/26/19 19:19 08:39 Sodium 136 Potassium 4.1 Chloride 99 Carbon Dioxide 27 Anion Gap 10 BUN 10 Creatinine 0.5 Estimated GFR/1.73 m2 > 60 BUN/Creatinine Ratio 20 Glucose 104 Calculated Osmolality 271 Calcium 9.3 Coronavirus (PCR) SEE COMMENTS Assessment: Acute on chronic hypoxemic hypercapnic respiratory failure. Close to patient's baseline oxygen demand. Patient uses NC 2L at home as needed during the daytime and continuously at bedtime. Sepsis with high fever, tachycardia and tachypnea secondary to UTI. Blood cultures on 07/23/19 grow E. Coli. Repeat blood cultures pending. Possible pneumonia with LLL infiltrate. COVID-19 tested with results pending. UTI. Urine culture collected on 07/23/19 grows E. Coli. Morbid obesity with COPD, Obesity hypoventilation syndrome and obstructive sleep apnea. DNR 1. Plan: Continue supplemental oxygen with BiPAP at bedtime and as needed. We titrated oxygen and BiPAP settings to patients needs per clinical protocols. We will monitor patients response closely and adjust accordingly. Continue droplet isolation as we await the results of COVID-19 test. Sputum culture pending. Continue antibiotics including meropenem and Vancomycin. We will monitor patients clinical and lab response closely. Continue bronchodilators. Continue diuresis as tolerated.
[2019-07-26] MEDS ORDERED: ZANAFLEX PO ONE (17:19)
[2019-07-26] MEDS: KLONOPIN PO SCH (21:50)
[2019-07-27] MEDS: VENTOLIN HFA INH SCH ×2 (03:53→10:38)
[2019-07-27] MEDS: SYNTHROID PO SCH (06:07)
[2019-07-27] MEDS ORDERED: ZOFRAN ONE (07:28)
[2019-07-27] MEDS: KLONOPIN PO SCH (08:18)
[2019-07-27] MEDS: LASIX PO SCH (08:18)
[2019-07-27] MEDS: PAXIL PO SCH (08:18)
[2019-07-27] MEDS: LIDODERM TOP SCH (08:18)
[2019-07-27] MEDS: LYRICA PO SCH (08:18)
[2019-07-27] MEDS: SYMBICORT 80/4.5 MICROGM INHALER INH SCH (10:38)
[2019-07-27 11:54] VITALS: BP 157/73
--- NOTE | 2019-07-27 12:55 | DISCHARGE SUMMARY ---
ADMISSION DATE: 07/24/2019 DISCHARGE DATE: 07/27/2019 DISCHARGE DIAGNOSIS: Urinary tract infection which is Escherichia coli and non extended spectrum beta lactamase, actually pansensitive with bacteremia. CONSULTATIONS: Dr. Jones PROCEDURES: None. DISCHARGE DIAGNOSES: 1. Acute on chronic hypoxic hypercapnic respiratory failure. 2. Chronic obstructive pulmonary disease exacerbation. 3. Pickwickian syndrome and obstructive sleep apnea. 4. Noncompliance. 5. Chronic pain syndrome. HISTORY OF PRESENT ILLNESS: Briefly this is an 83-year-old female who has obesity hypoventilation, COPD, right AKA with poor mobility. She is already on supplemental oxygen and she seemed to be doing okay. Shortness of breath reported, left lower lobe infiltrate based on her chest x-ray, left basilar infiltrate. She was felt to be septic on admission. Pulmonary was consulted, recommended intermittent BiPAP. She was COVID testing due to current pandemic, but she did have a temperature of a 102.4 degrees. Chest x-ray improved on the . She ended up growing out Escherichia coli from her blood and urine. She had a positive blood culture on the , 2 positive blood cultures and urine, both were pansensitive E coli. Repeat blood cultures from the after she had been placed on Merrem because she had a history of ESBL was negative. We switched her to Rocephin and we will discharge her on Levaquin. She lost IV access since Levaquin is 100% bioavailable felt that we could treat her with Levaquin, and this was a secondary bacteremia. DISCHARGE MEDS: Zanaflex 4 at bedtime, diclofenac, Klonopin 1 b.i.d., Lasix 20 b.i.d., Synthroid 125 daily, Lyrica 75 b.i.d., Myrbetriq 50 daily, Oxy IR 15 t.i.d., Paxil 30 daily, Levaquin 500 daily for 10 days and albuterol inhaler. FOLLOWUP: She will need to follow up with her PCP, Kayode Go, in 1 week and follow very closely. TIME SPENT: This is a 32 minute discharge. cc: Otoniel Lopez MD
[2019-07-27] MEDS ORDERED: DUONEB (A & A) INH SCH (16:00)
--- NOTE | 2019-07-27 17:56 | PROVIDER PROGRESS NOTE ---
Progress Note Dr. Jones Progress Note/Pulmonary and or critical care Subjective: Patient is lying in bed on NC 3L with no acute distress noted. She is happy that she is discharged today. She states she is fine and she has no complaint. Input was appreciated from Dr. Lopez and other teams on the case. Objective: Vital Signs: T 97.9 (no fever in last 24 hours), TX 76, RR 19, BP 189/86 and SaO2 100% on NC 3L. Physical Examination: General: Calm, pleasant and cooperative. Chronically ill appearing. Morbidly obese. Lying in bed with no acute distress noted. HEENT: Atraumatic. Normocephalic. Trachea midline. Mucosa pink and moist. Respiratory: Even and unlabored. Symmetrical excursion. Significantly diminished breathing sounds bilaterally. Cardiovascular: S1 and S2 appreciated. Gastrointestinal: Soft. Obese. Nontender. Normoactive bowel sounds in all 4 quadrants. Extremities: RLE PILOT POINT with healed stump. LLE trace edema. No clubbing or cyanosis noted. Neurologic: A/O x3. Speech fluent. Follow commands. Labs and Radiology: No lab/radiology today. Assessment: Acute on chronic hypoxemic hypercapnic respiratory failure. Close to patient's baseline oxygen demand. Patient uses NC 2L at home as needed during the daytime and continuously at bedtime. Sepsis with high fever, tachycardia and tachypnea at presentation secondary to UTI. Blood cultures on 07/23/19 grow E. Coli. Repeat blood cultures on 07/25/19 christensen ve no growth after 48 hours. Possible pneumonia with LLL infiltrate. COVID-19 negative. UTI. Urine culture collected on 07/23/19 grows E. Coli. Morbid obesity with COPD, Obesity hypoventilation syndrome and obstructive sleep apnea. DNR 1. Plan: Continue supplemental oxygen with BiPAP at bedtime and as needed. We titrated oxygen and BiPAP settings to patients needs per clinical protocols. We will monitor patients response closely and adjust accordingly. Discontinue droplet isolation as COVID-19 test is negative. Sputum culture pending. PO Levaquin started today as patient has no IV and all IV medications stops. We will monitor patients clinical and lab response closely. Continue bronchodilators. We change Ventolin inhaler q6h to Duoneb nebulizer q6h since COVID-19 negative. Continue diuresis as tolerated. We start incentive spirometer and encourage the patient to use it routinely. Discharge planning today.
[2019-07-27] MEDS ORDERED: LEVAQUIN PO SCH (22:00)
== END 2019-07-27 15:00 | disposition home health service (06) | DRG 871 ==
LOC: ED 17:38 → 2N 07-24 00:11 → SUATTDRO 07-24 00:11
PROVIDERS: ATTEND Internal Medicine